=== PATIENT | female | born 1940 | race Caucasian/White ===

== ENCOUNTER → 2017-09-09 18:20 | Outpatient (REF) | payer OTHER, SELFPAY | LOC: LAB 18:20 | PROVIDERS: Family Provider Internal Medicine; PCP Family Medicine; Visit Provider Physician Assistant | DX: Z48.817 Encounter for surgical aftercare following surgery on the skin and subcutaneous tissue (principal) | CPT/HCPCS: 87070; 87075; 87077; 87147; 87186; 87205 ==

== ENCOUNTER → 2017-10-01 16:14 | Outpatient (CLI) | payer OTHER, SELFPAY ==
--- NOTE | 2017-10-01 16:18 | DI.RAD.S_ITS ---
PROCEDURE: XR CHEST 2V INDICATIONS: cough TECHNIQUE: 2 views of the chest were acquired. COMPARISON: , , CHEST 1 VIEW, 05/22/2016, 17:38. FINDINGS: Surgical changes and devices: Multiple surgical clips mid abdomen.. Lungs and pleura: No pleural effusions or pneumothorax. Mild atelectasis at the lung bases. No apparent vascular congestion or pulmonary edema. Mediastinum: Mediastinal contours are normal. Mild cardiomegaly. Aortic calcification and tortuosity. Bones and chest wall: No suspicious bony abnormalities. Thoracic spondylosis. Soft tissues appear unremarkable. IMPRESSION: 1. Mild cardiomegaly without evidence of congestive failure. 2. Bibasilar radiodensities are likely atelectatic but pneumonia cannot be excluded. Dictated by: Cristobal Tillman M.D. on 10/01/2017 at 16:40 Approved by: Cristobal Tillman M.D. on 10/01/2017 at 16:43
== END ==
PROVIDERS: Family Provider Internal Medicine; PCP Family Medicine; Visit Provider Physician Assistant
DX: R05 Cough (principal); I51.7 Cardiomegaly
CPT/HCPCS: 71046

== ENCOUNTER → 2017-10-06 14:29 | Outpatient (CLI) | payer OTHER, SELFPAY ==
[2017-10-06 15:09] LABS: Add Manual Diff / Slide Review NO; Basophils Percent Auto 0.4 % (0-2); Hematocrit 36.2 % (36-46); Hemoglobin 11.8 g/dL (12.0-16.0); Lymphocytes Percent Auto 28.1 % (25-40); Mean Corpuscular HGB Conc 32.7 % (30-36); Mean Corpuscular Hemoglobin 26.6 PG (26-34); Mean Corpuscular Volume 81.5 fL (80-100); Monocytes Percent Auto 6.7 % (3-14); Neutrophils Absolute Auto 7900 /uL (3000-5900); Neutrophils Percent Auto 63.8 % (50-75); Platelet Count 230 X10^3/uL (150-400); Red Blood Cell Count 4.44 X10^6/uL (4.0-5.2); Red Cell Distribution Width 15.5 % (11.6-14.8); White Blood Cell Count 12.3 X10^3/uL (4.5-11.0)
[2017-10-06 15:20] LABS: Hemoglobin A1C% w Est Avg Glu 7.4 % (4.0-6.0)
[2017-10-06 15:29] LABS: Alanine Aminotransferase 36 IU/L (9-52); Albumin 3.8 g/dL (3.5-5.0); Albumin Globulin Ratio 1.1 (1.0-2.8); Alkaline Phosphatase 119 U/L (38-126); Aspartate Aminotransferase 30 IU/L (14-36); Bilirubin Total 0.4 mg/dL (0.2-1.3); Blood Urea Nitrogen 26 mg/dL (7-17); Calcium 9.7 mg/dL (8.4-10.2); Carbon Dioxide 37 mmol/L (22-32); Chloride 95 mmol/L (98-107); Cholesterol 143 mg/dL (140-199); Estimated Glomerular Filt Rate 39.6 mL/min (>60); Globulin 3.5 g/dL (1.7-4.1); Glucose 141 mg/dL (80-110); HDL Cholesterol 44 mg/dL (40-60); HEMOLYSIS < 15 (0-50); LDL Cholesterol Calculated 54 mg/dL (<100); Potassium 3.9 mmol/L (3.4-5.1); Sodium 140 mmol/L (137-145); Total Protein 7.3 g/dL (6.3-8.2); Triglycerides 223 mg/dL (35-150)
[2017-10-06 15:34] LABS: Appearance Urine UA CLEAR; Bilirubin Urine UA NEGATIVE (NEGATIVE); Color Urine UA YELLOW; Glucose Urine UA NEGATIVE (Normal); Ketones Urine UA NEGATIVE (NEGATIVE); Leukocyte Esterase Urine UA 1+ (NEGATIVE); Nitrite Urine UA Negative (Negative); Occult Blood Urine UA NEGATIVE (Negative); Protein Urine UA NEGATIVE (Negative); Specific Gravity Urine UA 1.015 (1.000-1.035); Urobilinogen Urine UA 0.2 E.U./dL (0.2)
[2017-10-06 15:59] LABS: Thyroid Stimulating Hormone 0.91 uIU/mL (0.47-4.68)
[2017-10-06 16:01] LABS: RBC Urine None Seen (0-5/HPF)
[2017-10-06 16:02] LABS: Bacteria Urine Occasional (0-1); Culture Indicated Urine Specimen Cultured; Squamous Epithelial Cell Urine 1-5 /HPF; WBC Urine 1-5/HPF (0-5/HPF)
[2017-10-06 16:15] LABS: Vitamin B12 > 1000 pg/mL (239-931)
== END ==
PROVIDERS: PCP Family Medicine; Visit Provider Family Medicine
DX: Z51.81 Encounter for therapeutic drug level monitoring (principal); E53.8 Deficiency of other specified B group vitamins; I10 Essential (primary) hypertension; E78.5 Hyperlipidemia, unspecified; E11.9 Type 2 diabetes mellitus without complications
CPT/HCPCS: 36415; 80053; 80061; 81003; 81015; 82607; 83036; 84443; 85025; 87086

== ENCOUNTER → 2017-12-22 08:07 | Outpatient (CLI) | payer OTHER, SELFPAY ==
[2017-12-22 09:23] LABS: Alanine Aminotransferase 25 IU/L (9-52); Albumin 3.9 g/dL (3.5-5.0); Albumin Globulin Ratio 1.2 (1.0-2.8); Alkaline Phosphatase 106 U/L (38-126); Aspartate Aminotransferase 26 IU/L (14-36); BUN Creatinine Ratio 17.5 (6-22); Bilirubin Total 0.5 mg/dL (0.2-1.3); Blood Urea Nitrogen 21 mg/dL (7-17); Calcium 9.4 mg/dL (8.4-10.2); Carbon Dioxide 35 mmol/L (22-32); Chloride 100 mmol/L (98-107); Estimated Glomerular Filt Rate 43.3 mL/min (>60); Globulin 3.3 g/dL (1.7-4.1); Glucose 73 mg/dL (80-110); HEMOLYSIS < 15 (0-50); Potassium 3.7 mmol/L (3.4-5.1); Sodium 144 mmol/L (137-145); Total Protein 7.2 g/dL (6.3-8.2)
[2017-12-25 10:46] LABS: Lipoprofile NMR SEE SEPARATE REPORTS
== END ==
PROVIDERS: PCP Family Medicine; Visit Provider Physician Assistant Medical
DX: I10 Essential (primary) hypertension (principal); E78.2 Mixed hyperlipidemia; R06.9 Unspecified abnormalities of breathing
CPT/HCPCS: 36415; 80053; 83704; 83735

== ENCOUNTER → 2017-12-23 13:25 | Outpatient (CLI) | payer OTHER, SELFPAY ==
--- NOTE | 2017-12-23 | DI.ECHO.S_ITS ---
[place] [facility]---------+ [facility] +---------+ : : [address] : : : : [id number] : : : : Phone: [phone]+ Echocardiogram Report + + :Name: SID MELCHOR Study Date: 12/23/2017 Height: 66 in : :[facility] Exam Location: [facility] Weight: 280 lb : : Gender: Female BSA: 2.3 m2 : :: 1940 Age: 77 yrs BP: 130/70 mmHg: :Reason For Study: Dyspnea on exertion : :Ordering Physician: En, : :Hansel Performed By: Sydney Page : :Referring: NANCY NORRIS : + + Interpretation Summary 1) Grossly normal left ventricular size with normal wall motion, and systolic function (EF 60-65%). 2) Normal right ventricular size and function. 3) The left atrium is moderately dilated. 4) Age related calcification of the aortic and mitral valves with no significant stenosis or regurgitation. 5) Pulmonary artery pressures cannot be estimated because of the lack of a measurable TR jet velocity. 6) Compared to the Echo done 04/03/2015, no signifciant change. Procedure: A two-dimensional transthoracic echocardiogram with color flow and Doppler was performed. The study quality was technically difficult. Comparison is made with the echocardiogram of 04/03/2015. The subcostal views were difficult to obtain and are suboptimal in quality. The patient was in normal sinus rhythm during the exam. The patient had occasional PVCs during the exam. Left Ventricle: The left ventricle is not well visualized but is grossly normal in size. The ejection fraction is estimated to be 60-65%. Left ventricular systolic function is normal without focal wall motion abnormalities. Assessment of diastolic parameters indicates a relaxation abnormality of the left ventricle, consistent with normal filling pressures. Right Ventricle: The right ventricle is normal in size and function. Atria: The left atrium is moderately dilated. Right atrial size is normal. There is no Doppler evidence for an interatrial shunt. Mitral Valve: The mitral valve is grossly normal. There is mild mitral annular calcification. The mitral valve mean gradient is 3.4 mmHg. There is trace mitral regurgitation. Aortic Valve: The aortic valve is not well visualized. The aortic valve is grossly normal. The aortic valve opens well. There is no aortic valve stenosis. No aortic regurgitation is present. Tricuspid Valve: The tricuspid valve is not well visualized, but is grossly normal. There is a trace or physiologic amount of tricuspid regurgitation. Pulmonary artery pressures cannot be estimated because of the lack of a measurable TR jet velocity. Pulmonic Valve: The pulmonic valve is not well visualized. There is trace pulmonic regurgitation. Great Vessels: The aortic root is normal size. The ascending aorta is normal in size. The pulmonary is not well visualized. The inferior vena cava was not visualized. Pericardium/ Pleura There is no pericardial effusion. There is no pleural effusion. MMode/2D Measurements & Calculations LVIDd: 5.2 cm Ao root diam: 3.0 cm LVIDs: 3.1 cm asc Aorta Diam: 3.2 cm FS: 41.6 % IVSd: 0.92 cm LVPWd: 1.0 cm LV [place]. diameter/BSA (cm/m^2): 2.3 LV sys. diameter/BSA (cm/m^2): 1.3 LA A2 area: 25.1 cm2 RA long axis: 5.4 cm LA A4 area: 22.1 cm2 RA area: 18.2 cm2 LA length (vol): 5.8 cm RA vol: 52.0 ml LA vol: 81.2 ml RA : 22.5 ml/m2 LA vol index: 35.2 ml/m2 RVD1 (basal): 4.2 cm TAPSE: 2.5 cm Doppler Measurements & Calculations Ao V2 max: 144.7 cm/sec LVOT Max Jam: 97.7 cm/sec Ao V2 mean: 101.5 cm/sec LV V1 max P.8 mmHg Ao max P.4 mmHg LV V1 VTI: 22.3 cm Ao mean P.6 mmHg sev ratio: 0.67 Ao V2 VTI: 33.2 cm MV E max jam: 129.0 cm/sec PA V2 max: 70.4 cm/sec MV A max jam: 145.4 cm/sec PA V2 mean: 51.4 cm/sec MV E/A: 0.89 PA mean P.1 mmHg Med Peak E' Jam: 4.6 cm/sec PA Accel Time: 0.14 sec E/E' med: 27.8 Lat Peak E' Jam: 5.2 cm/sec E/E' lat: 25.0 E/e' average: 26.4 MV dec time: 0.23 sec MV P1/2t: 71.7 msec MV V2 mean: 83.6 cm/sec MV P1/2t max jam: 129.3 cm/sec MV mean P.4 mmHg MVA(P1/2t): 3.1 cm2 MV V2 VTI: 44.0 cm Reading Physician:01:07 PM
== END ==
PROVIDERS: PCP Family Medicine; Visit Provider Family Medicine
DX: R06.09 Other forms of dyspnea (principal); I08.0 Rheumatic disorders of both mitral and aortic valves
CPT/HCPCS: 93306; Q9957

== ENCOUNTER → 2018-01-25 09:24 | Outpatient (CLI) | payer OTHER, SELFPAY ==
[2018-01-25 11:00] LABS: Hemoglobin A1C% w Est Avg Glu 6.9 % (4.0-6.0)
[2018-01-25 11:33] LABS: Alanine Aminotransferase 23 IU/L (9-52); Albumin 3.8 g/dL (3.5-5.0); Albumin Globulin Ratio 1.3 (1.0-2.8); Alkaline Phosphatase 126 U/L (38-126); Aspartate Aminotransferase 18 IU/L (14-36); BUN Creatinine Ratio 12.9 (6-22); Bilirubin Total 0.6 mg/dL (0.2-1.3); Blood Urea Nitrogen 18 mg/dL (7-17); Calcium 9.7 mg/dL (8.4-10.2); Carbon Dioxide 36 mmol/L (22-32); Chloride 99 mmol/L (98-107); Cholesterol 124 mg/dL (140-199); Estimated Glomerular Filt Rate 36.3 mL/min (>60); Globulin 2.9 g/dL (1.7-4.1); Glucose 46 mg/dL (80-110); HDL Cholesterol 44 mg/dL (40-60); HEMOLYSIS < 15 (0-50); LDL Cholesterol Calculated 59 mg/dL (<100); Magnesium 1.8 mg/dL (1.6-2.3); Potassium 3.8 mmol/L (3.4-5.1); Sodium 145 mmol/L (137-145); Total Protein 6.7 g/dL (6.3-8.2); Triglycerides 106 mg/dL (35-150)
== END ==
PROVIDERS: PCP Family Medicine; Visit Provider Specialist
DX: E11.9 Type 2 diabetes mellitus without complications (principal); E78.2 Mixed hyperlipidemia; I10 Essential (primary) hypertension; Z79.4 Long term (current) use of insulin
CPT/HCPCS: 36415; 80053; 80061; 83036; 83735

== ENCOUNTER 2018-05-09 12:38 | Emergency (ER) | payer OTHER, SELFPAY ==
[2018-05-09 12:40] VITALS: BP 165/76; PULSE 68; RESP 20; TEMP 36.3; O2SAT 96; BMI 44.2
--- NOTE | 2018-05-09 12:51 | ED_ITS ---
HPI - Chest Pain General Chief Complaint: Chest Pain Stated Complaint: Chest pain and back pain Time Seen by Provider: 05/09/18 12:49 Source: patient Mode of arrival: wheelchair Limitations: no limitations History of Present Illness HPI narrative: Patient is a 77-year-old female here for evaluation of greater than 24 hr of bilateral chest and back pain. She states that she does not know when exactly it started. She states that it does get worse when she moves or when she touches it. No shortness of breath. No cough. No rash. Has not tried anything for this prior to arrival. Has had heart attack in the past however she does not think that this similar to those symptoms. She has been taking her medications. Related Data Home Medications Medication Instructions Recorded Confirmed VITAMIN D (Vitamin D3) 1,000 mg PO Q DAY #0 11/04/10 05/04/18 atorvastatin [Lipitor] 40 mg PO HS #0 11/04/10 05/04/18 metformin 1,000 mg PO BID #0 11/04/10 05/04/18 furosemide 80 mg PO QDAY #0 11/06/11 05/04/18 aspirin 81 mg PO QDAY #0 06/23/17 05/04/18 carvedilol [Coreg] 0.5 tab PO BID #0 06/23/17 05/04/18 citalopram 40 mg PO QDAY #0 06/23/17 05/04/18 cyanocobalamin (vitamin B-12) 5,000 mcg SUBLINGUAL QDAY #0 06/23/17 05/04/18 [Vitamin B-12] magnesium oxide 250 mg PO BID #0 06/23/17 05/04/18 diphenhydramine 25 1 tab PO BEDTIME PRN 09/07/17 05/04/18 mg-acetaminophen 500 mg tablet insulin lispro (U-100) 100 unit/mL See Label Instructions SUBCUT TID 04/27/18 subcutaneous pen Previous Rx's Medication Instructions Recorded pen needle, diabetic 31 gauge x #100 each 08/13/1708/26 albuterol sulfate 90 mcg/actuation 2 puff INHALATION Q4H PRN #1 each 10/12/17 breath activated powder inhaler Disabled Parking Permit #1 ea 12/28/17 pramipexole 0.25 mg tablet 0.5 mg PO HS #60 tab 01/12/18 tramadol 50 mg tablet 50 mg PO TIDP PRN #30 tab 01/27/18 insulin glargine (U-100) 100 30 unit SUBCUT BID #15 ml 04/28/18 unit/mL (3 mL) subcutaneous pen nystatin-triamcinolone 100,000 1 applictn TOP BID #15 gram 05/04/18 unit/gram-0.1 % topical ointment hydrocodone-acetaminophen [Sweet Water] 1 tab PO Q4-6H PRN #7 tab 05/09/18 Allergies Allergy/AdvReac Type Severity Reaction Status Date / Time No Known Allergies Allergy Uncoded 05/04/18 13:59 Review of Systems Constitutional Denies fever(s) and Denies headache(s) ENT Ears, Nose, Mouth, and Throat: Denies headache(s) Cardiovascular Reports chest pain, Denies edema, Denies palpitations and Denies dyspnea Respiratory Denies dyspnea Gastrointestinal Gastrointestinal: Denies abdominal pain, Reports nausea and Denies vomiting Musculoskeletal Reports back pain, Denies myalgias and Denies arthralgias Integumentary/Breasts Denies lesions and Denies rash Neurologic Denies confusion and Denies headache(s) Psychiatric Denies confusion Endocrine Denies palpitations Hematologic/Lymphatic Comments: Not on anticoagulation PFSH Surgical History Cholecystitis (Inactive) Hx of hysterectomy (Inactive) Social History Smoking Status: Former smoker Exam Initial Vital Signs Initial Vital Signs: Vital Signs Temperature 97.3 F L 05/09/18 12:40 Pulse Rate 68 05/09/18 12:40 Respiratory Rate 20 05/09/18 12:40 Blood Pressure 165/76 H 05/09/18 12:40 Pulse Oximetry 96 05/09/18 12:40 Const General: cooperative, well developed, well groomed and No acute distress Orientation: alert, awake and oriented x3 HENMT Head: normal to inspection and normocephalic Chest Chest: normal inspection of the chest, No crepitus and tenderness (Bilateral anterior chest wall tenderness) Resp Effort & Inspection: normal respiratory effort, not labored and not tachypneic Auscultation: clear to auscultation bilaterally Cardio Rate: regular rate Rhythm: regular rhythm Pulses: radial pulses present GI Inspection: non-distended Palpation: soft Skin Lesions: no lesions Rashes: no rashes Neuro General: alert, awake and oriented x3 Cognition: normal cognition Speech: speech normal Extrem General: normal to inspection and capillary refill normal Psych Appearance: grossly normal and well kempt Course Orders Ordered: ED Orders 05/09/18 12:50 XR chest 1V Stat EKG-12 Lead Stat 05/09/18 12:59 B Type Natriuretic Peptide Stat Complete Blood Count AUTO DIFF Stat Comprehensive Metabolic Panel Stat Lipase Stat Partial Thromboplastin Time Stat Prothrombin Time INR Stat Troponin I Stat 05/09/18 13:41 CT angio chest PE protocol Stat Sodium Chloride (Normal Saline 0.9%) 1,000 mls @ 500 mls/hr IV BOLUS ONE Stop: 05/09/18 15:40 Last Admin: 05/09/18 14:08 Dose: 500 mls/hr Discontinued Medications Morphine Sulfate (Morphine) 2 mg IV NOW ONE Stop: 05/09/18 13:43 Last Admin: 05/09/18 14:08 Dose: 2 mg Vital Signs - 8 hr 05/09/18 12:40 05/09/18 13:32 05/09/18 14:32 Temperature 97.3 F L Pulse Rate 68 76 70 Respiratory Rate 20 14 21 Blood Pressure 165/76 H Blood Pressure [Left Arm] 123/59 L 141/59 H Pulse Oximetry 96 98 94 MDM - Chest Pain Lab Data Attestation: I reviewed the patient's lab results. Result diagrams: 05/09/18 12:59 05/09/18 12:59 Lab Results 05/09/18 05/09/18 05/09/18 Range/Units 12:59 12:59 12:59 WBC 8.6 (4.5-11.0) X10^3/uL RBC 4.47 (4.0-5.2) X10^6/uL Hgb 12.1 (12.0-16.0) g/dL Hct 37.3 (36-46) % MCV 83.5 (80-100) fL MCH 27.1 (26-34) PG MCHC 32.5 (30-36) % RDW 15.5 H (11.6-14.8) % Plt Count 207 (150-400) X10^3/uL Neut % (Auto) 64.4 (50-75) % Lymph % (Auto) 22.2 L (25-40) % [place] % (Auto) 9.4 (3-14) % Eos % (Auto) 3.1 (2-4) % Baso % (Auto) 0.9 (0-2) % Neut # (Auto) 5600 (4445-2356) /uL Lymph # (Auto) 1900 (9003-2229) /uL [place] # (Auto) 800 (0-900) /uL Eos # (Auto) 300 (0-450) /uL Baso # (Auto) 100 (0-100) /uL PT 11.8 (10.1-12.7) SECONDS INR 1.0 (0.9-1.3) APTT 30 (26.4-36.2) SECONDS Sodium 143 (137-145) mmol/L Potassium 3.7 (3.4-5.1) mmol/L Chloride 99 (98-107) mmol/L Carbon Dioxide 33 H (22-32) mmol/L BUN 21 H (7-17) mg/dL Creatinine 1.30 H (0.52-1.04) mg/dL Estimated GFR 39.5 L (>60) mL/min BUN/Creatinine Ratio 16.2 (6-22) Glucose 61 L (80-110) mg/dL Calcium 9.6 (8.4-10.2) mg/dL Total Bilirubin 0.5 (0.2-1.3) mg/dL AST 24 (14-36) IU/L ALT 17 (9-52) IU/L Alkaline Phosphatase 103 (38-126) U/L Troponin I < 0.012 (0.01-0.034) ng/mL B-Natriuretic Peptide < 100 (<100) Total Protein 7.8 (6.3-8.2) g/dL Albumin 4.2 (3.5-5.0) g/dL Globulin 3.6 (1.7-4.1) g/dL Albumin/Globulin Ratio 1.2 (1.0-2.8) Lipase 85 (23-300) U/L Imaging Data Chest x-ray: Radiologist's impression: [address] [address] XRay Report Signed Patient: Fernie Cowanha [facility]#: [id number] : 9Acct:[id number] Age/Sex: 77 / FDate of Service: 05/09/18 Loc: ED Accession Number: [id number] Procedure: XR chest 1V Ordering Provider: Jaydon Solano D.O. PROCEDURE: XR CHEST 1V INDICATIONS: chest pain TECHNIQUE: One view of the chest was acquired. COMPARISON: [facility], CR, XR CHEST 2V, 10/01/2017, 16:05. FINDINGS: Surgical changes and devices: None. Lungs and pleura: There is left hemidiaphragm elevation. Left base opacity is likely atelectasis. No pleural effusions or pneumothorax. Mediastinum: Mediastinal contours appear normal. Heart size is normal. Bones and chest wall: No suspicious bony lesions. Overlying soft tissues appear unremarkable. Degenerative changes in the thoracic spine. IMPRESSION: Left kenny-diaphragm elevation and left basilar atelectasis. Dictated by: Serjio Portillo M.D. on 05/09/2018 at 13:47 CT scan - chest: Radiologist's impression: [place] [address] CT Scan Report Signed Patient: Estefania Cowan [facility]#: [id number] : 9Acct:[id number] Age/Sex: 77 / FDate of Service: 05/09/18 Loc: ED Accession Number: [id number] Procedure: CT angio chest PE protocol Ordering Provider: Jaydon Solano D.O. PROCEDURE: CT ANGIO CHEST PE PROTOCOL INDICATIONS: Chest pain, shortness of breath, TECHNIQUE: After the administration of intravenous contrast, 2 mm thick sections acquired from the pulmonary apices to the posterior costophrenic angles. 3-dimensional maximum intensity projection (MIP) coronal and sagittal reformats were then acquired through the thorax. For radiation dose reduction, the following was used: automated exposure control, adjustment of mA and/or kV according to patient size. COMPARISON: [facility], CT, THORAX WITH CONTRAST, 12/06/2008, 12:43. [facility], CT, THORAX WITHOUT CONTRAST, 11/21/2010, 10:58. [facility], CR, XR CHEST 1V, 05/09/2018, 13:20. FINDINGS: Image quality: There are respiratory motion artifacts. Pulmonary arteries: Pulmonary arteries are normal in size, and demonstrate no intraluminal filling defects to suggest central pulmonary embolism. Lungs and pleura: Bilateral ground glass infiltrates. There is left hemidiaphragm elevation and left basilar atelectasis. No pleural effusions or pneumothorax. Central and peripheral airways are patent. Mediastinum: Heart size is normal, without pericardial effusion. Small mediastinal lymph nodes are nonspecific and most likely reactive. Thoracic aorta is normal in caliber and enhancement. Esophagus is normal in caliber. Small hiatal hernia. Bones and chest wall: No suspicious bony lesions. Ribs and thoracic spine appear intact throughout. Thyroid gland is normal. No axillary or supraclavicular adenopathy. Abdomen: Visualized upper abdominal solid organs appear normal in the early arterial phase of enhancement. Gallbladder is surgically absent. IMPRESSION: 1. No definitive central pulmonary embolism. The examination is somewhat suboptimal due to respiratory motion artifacts. 2. Mild bilateral ground glass infiltrates consistent with pneumonia or pneumonitis. 3. Left hemidiaphragm elevation and left basilar atelectasis. 4. Small hiatal hernia. Dictated by: Serjio Portillo M.D. on 05/09/2018 at 14:34 Approved by: Serjio Portillo M.D. on 05/09/2018 at 14:45 ECG Data Attestation: I personally reviewed and interpreted this ECG as follows: Prior ECG tracings: not available for review Interpretation: Sinus rhythm Ventricular rate is 79 Occasional PVCs Normal QRS Normal QTC No ST T wave changes MDM Narrative Medical decision making narrative: Patient has reproducible anterior hand back chest wall pain. Her CT shows no signs of dissection or pulmonary embolism. Her troponin was negative. She states she has been having the symptoms for more than 24 hr. Low suspicion for ACS. States she feels much better after receiving some morphine here in the ER. Hold on further workup for now. Low suspicion for ACS. Patient was given return precautions. She expressed understanding and agreement with plan. Discharge Plan Departure Patient Disposition: Home Clinical Impression: Acute chest wall pain, Back pain Instructions: DI for Atypical Chest Pain Activity Restrictions/Additional Instructions: Continue all of your medications as directed. Contact your primary care doctor for a follow-up. Return to the emergency department for any new or worsening symptoms Prescriptions: New hydrocodone-acetaminophen [Sweet Water] 5-325 mg tablet 1 tab PO Q4-6H PRN (Reason: pain) Qty: 7 RF: 0 No Action albuterol sulfate 90 mcg/actuation aerosol powdr breath activated 2 puff INHALATION Q4H PRN (Reason: shortness of breath or wheezing) Qty: 1 RF : 0 tramadol 50 mg tablet 50 mg PO TIDP PRN (Reason: pain) Qty: 30 RF: 0 diphenhydramine-acetaminophen [Tylenol PM Extra Strength] 25-500 mg tablet 1 tab PO BEDTIME PRNRF: 0 pramipexole [Mirapex] 0.25 mg tablet 0.5 mg PO HS Qty: 60 RF: 5 insulin lispro [Humalog KwikPen Insulin] 100 unit/mL insulin pen See Patient Comments SUBCUT TID RF: 0 atorvastatin [Lipitor] 40 MG tablet 40 mg PO HS Qty: 0 RF: 0 metformin 1,000 MG tablet 1,000 mg PO BID Qty: 0 RF: 0 VITAMIN D (Vitamin D3) 1,000 mg PO Q DAY Qty: 0 RF: 0 furosemide 80 MG tablet 80 mg PO QDAY Qty: 0 RF: 0 aspirin 81 MG tablet,delayed release (DR/EC) 81 mg PO QDAY Qty: 0 RF: 0 magnesium oxide 250 MG tablet 250 mg PO BID Qty: 0 RF: 0 citalopram 40 MG tablet 40 mg PO QDAY Qty: 0 RF: 0 cyanocobalamin (vitamin B-12) [Vitamin B-12] 5,000 MCG tablet, sublingual 5,000 mcg Sublingual QDAY Qty: 0 RF: 0 carvedilol [Coreg] 6.25 MG tablet 0.5 tab PO BID Qty: 0 RF: 0 pen needle, diabetic [Comfort EZ Pen [place]] 31 gauge x 5/16 needle .ROUTE .MEDSUPPLY Qty: 100 RF: 3 Disabled Parking Permit Qty: 1 RF: 0 insulin glargine [Lantus Solostar U-100 Insulin] 100 unit/mL (3 mL) insulin pen 30 unit SUBCUT BID Qty: 15 RF: 1 nystatin-triamcinolone 100,000-0.1 unit/gram-% ointment 1 applictn TOP BID Qty: 15 RF: 0
[2018-05-09 13:07] LABS: Add Manual Diff / Slide Review NO; Basophils Absolute Auto 100 /uL (0-100); Basophils Percent Auto 0.9 % (0-2); Eosinophils Absolute Auto 300 /uL (0-450); Eosinophils Percent Auto 3.1 % (2-4); Hematocrit 37.3 % (36-46); Hemoglobin 12.1 g/dL (12.0-16.0); Lymphocytes Absolute Auto 1900 /uL (1100-4500); Lymphocytes Percent Auto 22.2 % (25-40); Mean Corpuscular HGB Conc 32.5 % (30-36); Mean Corpuscular Hemoglobin 27.1 PG (26-34); Mean Corpuscular Volume 83.5 fL (80-100); Monocytes Absolute Auto 800 /uL (0-900); Monocytes Percent Auto 9.4 % (3-14); Neutrophils Absolute Auto 5600 /uL (1500-7000); Neutrophils Percent Auto 64.4 % (50-75); Platelet Count 207 X10^3/uL (150-400); Red Blood Cell Count 4.47 X10^6/uL (4.0-5.2); Red Cell Distribution Width 15.5 % (11.6-14.8); White Blood Cell Count 8.6 X10^3/uL (4.5-11.0)
[2018-05-09 13:16] LABS: Prothrombin Time 11.8 SECONDS (10.1-12.7)
[2018-05-09 13:17] LABS: Alanine Aminotransferase 17 IU/L (9-52); Albumin 4.2 g/dL (3.5-5.0); Albumin Globulin Ratio 1.2 (1.0-2.8); Alkaline Phosphatase 103 U/L (38-126); Aspartate Aminotransferase 24 IU/L (14-36); BUN Creatinine Ratio 16.2 (6-22); Bilirubin Total 0.5 mg/dL (0.2-1.3); Blood Urea Nitrogen 21 mg/dL (7-17); Calcium 9.6 mg/dL (8.4-10.2); Carbon Dioxide 33 mmol/L (22-32); Chloride 99 mmol/L (98-107); Estimated Glomerular Filt Rate 39.5 mL/min (>60); Globulin 3.6 g/dL (1.7-4.1); Glucose 61 mg/dL (80-110); HEMOLYSIS < 15 (0-50); Lipase 85 U/L (23-300); Potassium 3.7 mmol/L (3.4-5.1); Sodium 143 mmol/L (137-145); Total Protein 7.8 g/dL (6.3-8.2)
[2018-05-09 13:18] LABS: PTT Partial Thromboplastin Tim 30 SECONDS (26.4-36.2)
[2018-05-09 13:32] VITALS: BP 123/59; PULSE 76; RESP 14; O2SAT 98
[2018-05-09 13:32] LABS: Troponin I < 0.012 ng/mL (0.01-0.034)
[2018-05-09 13:33] LABS: B Type Natriuretic Peptide < 100 (<100)
--- NOTE | 2018-05-09 13:41 | DI.CT.S_ITS ---
PROCEDURE: CT ANGIO CHEST PE PROTOCOL INDICATIONS: Chest pain, shortness of breath, TECHNIQUE: After the administration of intravenous contrast, 2 mm thick sections acquired from the pulmonary apices to the posterior costophrenic angles. 3-dimensional maximum intensity projection (MIP) coronal and sagittal reformats were then acquired through the thorax. For radiation dose reduction, the following was used: automated exposure control, adjustment of mA and/or kV according to patient size. COMPARISON: [facility], CT, THORAX WITH CONTRAST, 12/06/2008, 12:43. [facility], CT, THORAX WITHOUT CONTRAST, 11/21/2010, 10:58. [facility], CR, XR CHEST 1V, 05/09/2018, 13:20. FINDINGS: Image quality: There are respiratory motion artifacts. Pulmonary arteries: Pulmonary arteries are normal in size, and demonstrate no intraluminal filling defects to suggest central pulmonary embolism. Lungs and pleura: Bilateral ground glass infiltrates. There is left hemidiaphragm elevation and left basilar atelectasis. No pleural effusions or pneumothorax. Central and peripheral airways are patent. Mediastinum: Heart size is normal, without pericardial effusion. Small mediastinal lymph nodes are nonspecific and most likely reactive. Thoracic aorta is normal in caliber and enhancement. Esophagus is normal in caliber. Small hiatal hernia. Bones and chest wall: No suspicious bony lesions. Ribs and thoracic spine appear intact throughout. Thyroid gland is normal. No axillary or supraclavicular adenopathy. Abdomen: Visualized upper abdominal solid organs appear normal in the early arterial phase of enhancement. Gallbladder is surgically absent. IMPRESSION: 1. No definitive central pulmonary embolism. The examination is somewhat suboptimal due to respiratory motion artifacts. 2. Mild bilateral ground glass infiltrates consistent with pneumonia or pneumonitis. 3. Left hemidiaphragm elevation and left basilar atelectasis. 4. Small hiatal hernia. Dictated by: Serjio Portillo M.D. on 05/09/2018 at 14:34 Approved by: Serjio Portillo M.D. on 05/09/2018 at 14:45
[2018-05-09] MEDS: SODIUM CHLORIDE 0.9% 1,000 ML 500 ML IV (14:08)
[2018-05-09] MEDS: MORPHINE 4 MG/ML INJ 2 MG IV (14:08)
[2018-05-09 14:32] VITALS: BP 141/59; PULSE 70; RESP 21; O2SAT 94
[2018-05-09 15:20] VITALS: BP 113/44; PULSE 71; RESP 15; O2SAT 95
[2018-05-09 17:35] LABS: Cholesterol 112 mg/dL (140-199); HDL Cholesterol 35 mg/dL (40-60); LDL Cholesterol Calculated 45 mg/dL (<100); Triglycerides 158 mg/dL (35-150)
[2018-05-09 18:06] LABS: Thyroid Stimulating Hormone 1.18 uIU/mL (0.47-4.68)
== END 2018-05-09 15:39 | disposition home or self-care (01) ==
PROVIDERS: Emergency Provider Emergency Medicine; PCP Family Medicine
DX: R07.89 Other chest pain (principal)
CPT/HCPCS: 36591; 71045; 71275; 80053; 80061; 83690; 83880; 84443; 84484; 85025; 85610; 85730; 93005; 96361; 96374; 99284; 99285; J2270; Q9967

== ENCOUNTER → 2018-05-10 09:08 | Outpatient (CLI) | payer OTHER, SELFPAY ==
[2018-05-10 10:06] LABS: Hemoglobin A1C% w Est Avg Glu 6.2 % (4.0-6.0)
[2018-05-10 13:29] LABS: Appearance Urine UA CLEAR; Bilirubin Urine UA NEGATIVE (NEGATIVE); Color Urine UA YELLOW; Glucose Urine UA NEGATIVE (Negative); Ketones Urine UA NEGATIVE (NEGATIVE); Leukocyte Esterase Urine UA 2+ (NEGATIVE); Nitrite Urine UA NEGATIVE (Negative); Occult Blood Urine UA NEGATIVE (Negative); Protein Urine UA NEGATIVE (Negative); Specific Gravity Urine UA 1.015 (1.000-1.035); Urobilinogen Urine UA 0.2 E.U./dL (0.2)
[2018-05-10 13:59] LABS: RBC Urine None Seen (0-5/HPF)
[2018-05-10 14:00] LABS: Amorphous Sediment Urine 1+; Bacteria Urine Moderate (10-30); Culture Indicated Urine Specimen Cultured; Mucus Urine 1+ (Negative); Squamous Epithelial Cell Urine 1-5 /HPF; WBC Urine 5-10/HPF (0-5/HPF)
== END ==
PROVIDERS: PCP Family Medicine; Visit Provider Family Medicine
DX: E11.22 Type 2 diabetes mellitus with diabetic chronic kidney disease (principal); I12.9 Hypertensive chronic kidney disease with stage 1 through stage 4 chronic kidney disease, or unspecified chronic kidney disease; N18.9 Chronic kidney disease, unspecified; Z51.81 Encounter for therapeutic drug level monitoring; Z79.4 Long term (current) use of insulin
CPT/HCPCS: 81003; 81015; 83036; 87086

== ENCOUNTER → 2018-06-17 09:00 | Outpatient (CLI) | payer OTHER, SELFPAY ==
--- NOTE | 2018-06-17 | DI.MRI.S_ITS ---
PROCEDURE: MR CERVICAL SPINE WO CON INDICATIONS: CERVICAL RADICULOPATHY TECHNIQUE: Noncontrast sagittal T1 spin echo and T2 fast spin echo, sagittal STIR, foraminal oblique sagittal T2 fast spin echo, and axial gradient echo or T2 fast spin echo through the cervical spine. COMPARISON: [facility], CR, CERVICAL SPINE 2 OR 3 VIEWS, 10/05/2013, 19:48. [facility], MR, C-SPINE WITHOUT CONTRAST, 12/29/2014, 13:30. FINDINGS: Image quality: Excellent. Alignment and Curvature: There is normal bony alignment. Bones: C6-C7 ankylosis noted. Recommend plate changes noted adjacent the C2-C3, C3-C4, C4-C5, C5-C6, T1-T2, T2-T3 and T3-C4 disc. Spinal Cord: Visualized spinal cord has normal size and signal. No cerebellar tonsillar herniation. Paraspinous Soft Tissues: No paravertebral masses. Prevertebral soft tissues are normal in thickness. C2-C3: Loss of disc signal and height. Mild, diffuse disc bulge. Mild right and moderate left facet hypertrophy. Mild bilateral uncovertebral joint hypertrophy. Moderate narrowing of the central canal. Moderate right and mild left neural foraminal narrowing. No neural impingement. C3-C4: Loss of disc signal and height. Moderate, diffuse disc bulge. Mild bilateral facet hypertrophy. Mild right and moderate left uncovertebral joint hypertrophy. Severe central stenosis with flattening deformity of the cervical spinal cord. Severe bilateral neural foraminal narrowing with flattening deformity exiting C4 nerve roots. C4-C5: Loss of disc signal and height. Moderate, diffuse disc bulge. Mild bilateral facet hypertrophy. Moderate bilateral uncovertebral joint hypertrophy. Severe narrowing of the central canal with flattening deformity cervical spinal cord. Severe bilateral neural foraminal narrowing with flattening deformity exiting C5 nerve roots. C5-C6: Loss of disc signal and height. Moderate, diffuse disc bulge. Mild bilateral facet hypertrophy. Mild right and moderate left uncovertebral joint hypertrophy. Severe bilateral neural foraminal narrowing with flattening deformity of the exiting C6 nerve roots. C6-C7: Osseous ankylosis noted. No central stenosis. Mild bilateral facet hypertrophy. Mild bilateral neural foraminal narrowing. No neural impingement. C7-T1: Loss of disc signal and slight loss of disc height. Minimal, diffuse disc bulge. No central stenosis. No neural foraminal narrowing. No neural impingement. Small amount of fluid signal noted within the T2-T3 intervertebral disc space no edema noted in the subchondral marrow of the T2 or T3 vertebral bodies. IMPRESSION: 1. Multilevel degenerative disease. 2. Multilevel facet arthropathy. 3. Multilevel uncovertebral joint hypertrophy. 4. Severe C3-C4, C4-C5 and C5-C6 central canal stenosis. Moderate C2-C3 central canal narrowing. 5. Severe bilateral C3-C4, C4-C5 and C5-C6 neural foraminal narrowing. Moderate right and mild left C2-C3 neural foraminal narrowing. Mild bilateral C6 and C7 neural foraminal narrowing. 6. C6-C7 osseous ankylosis. 7. Small amount of fluid within the T2-T3 intervertebral disc space is likely reactive. Recommend correlation with clinical and laboratory values. Dictated by: Tiffanie Chandra MD, PhD on 06/17/2018 at 14:39 Approved by: Tiffanie Chandra MD, PhD on 06/17/2018 at 14:50
== END ==
PROVIDERS: PCP Family Medicine; Visit Provider Orthopaedic Surgery
DX: M50.11 Cervical disc disorder with radiculopathy, high cervical region (principal); M47.22 Other spondylosis with radiculopathy, cervical region; M48.02 Spinal stenosis, cervical region; M43.22 Fusion of spine, cervical region
CPT/HCPCS: 72141

== ENCOUNTER → 2018-07-08 08:38 | Outpatient (CLI) | payer OTHER, SELFPAY ==
[2018-07-08 09:06] LABS: Bacteria Urine None Seen
[2018-07-08 09:54] LABS: Add Manual Diff / Slide Review NO; Basophils Absolute Auto 0 /uL (0-100); Basophils Percent Auto 0.5 % (0-2); Eosinophils Absolute Auto 100 /uL (0-450); Eosinophils Percent Auto 2.2 % (2-4); Hematocrit 35.5 % (36-46); Hemoglobin 11.8 g/dL (12.0-16.0); Lymphocytes Absolute Auto 1600 /uL (1100-4500); Lymphocytes Percent Auto 26.6 % (25-40); Mean Corpuscular HGB Conc 33.4 % (30-36); Mean Corpuscular Hemoglobin 27.6 PG (26-34); Mean Corpuscular Volume 82.9 fL (80-100); Monocytes Absolute Auto 300 /uL (0-900); Monocytes Percent Auto 5.6 % (3-14); Neutrophils Absolute Auto 3900 /uL (1500-7000); Neutrophils Percent Auto 65.1 % (50-75); Platelet Count 182 X10^3/uL (150-400); Red Blood Cell Count 4.28 X10^6/uL (4.0-5.2); Red Cell Distribution Width 15.5 % (11.6-14.8)
[2018-07-08 10:04] LABS: Alanine Aminotransferase 24 IU/L (9-52); Albumin 3.9 g/dL (3.5-5.0); Albumin Globulin Ratio 1.2 (1.0-2.8); Alkaline Phosphatase 103 U/L (38-126); Aspartate Aminotransferase 20 IU/L (14-36); BUN Creatinine Ratio 16.7 (6-22); Bilirubin Total 0.6 mg/dL (0.2-1.3); Blood Urea Nitrogen 20 mg/dL (7-17); Calcium 9.6 mg/dL (8.4-10.2); Carbon Dioxide 34 mmol/L (22-32); Chloride 98 mmol/L (98-107); Cholesterol 118 mg/dL (140-199); Estimated Glomerular Filt Rate 43.3 mL/min (>60); Globulin 3.2 g/dL (1.7-4.1); Glucose 131 mg/dL (80-110); HDL Cholesterol 35 mg/dL (40-60); HEMOLYSIS < 15 (0-50); LDL Cholesterol Calculated 56 mg/dL (<100); Magnesium 1.9 mg/dL (1.6-2.3); Phosphorous 3.9 mg/dL (2.8-4.1); Potassium 3.8 mmol/L (3.4-5.1); Sodium 140 mmol/L (137-145); Total Protein 7.1 g/dL (6.3-8.2); Triglycerides 137 mg/dL (35-150)
[2018-07-08 10:28] LABS: HEMOLYSIS < 15 (0-50); Iron 63 ug/dL (37-170)
[2018-07-08 10:29] LABS: Appearance Urine UA CLEAR; Bilirubin Urine UA NEGATIVE (NEGATIVE); Color Urine UA YELLOW; Glucose Urine UA NEGATIVE (Negative); Ketones Urine UA NEGATIVE (NEGATIVE); Leukocyte Esterase Urine UA 3+ (NEGATIVE); Nitrite Urine UA NEGATIVE (Negative); Occult Blood Urine UA NEGATIVE (Negative); Protein Urine UA NEGATIVE (Negative); Specific Gravity Urine UA 1.015 (1.000-1.035); Urobilinogen Urine UA 0.2 E.U./dL (0.2)
[2018-07-08 10:32] LABS: Creatinine Urine Random 88.3 mg/dL
[2018-07-08 10:35] LABS: Microalbumi Creatinin Ratio Ur 15.8 ug/mg CR (<30); Microalbumin Urine Random 1.4 mg/dL (0-1.6)
[2018-07-08 10:36] LABS: Ferritin 11.4 ng/mL (11.1-264)
[2018-07-08 10:37] LABS: RBC Urine 1-5/HPF (0-5/HPF); WBC Urine 5-10/HPF (0-5/HPF)
[2018-07-08 10:38] LABS: Amorphous Sediment Urine 2+; Culture Indicated Urine Specimen Cultured
[2018-07-08 10:41] LABS: Percent Iron Saturation 18 % (15-50); Total Iron Binding Capacity 347 ug/dL (265-497); Transferrin 258 mg/dL (206-381)
[2018-07-08 10:47] LABS: Vitamin D 25 Hydroxy (D3) 37.9 ng/mL (30.0-100.0)
[2018-07-08 11:00] LABS: Thyroid Stimulating Hormone 1.54 uIU/mL (0.47-4.68)
[2018-07-10 15:41] LABS: Parathyroid Hormone Int 86 pg/mL (14-64)
[2018-07-12 07:20] LABS: Lipoprofile NMR SEE SEPARATE REPORTS
== END ==
PROVIDERS: PCP Family Medicine; Visit Provider Internal Medicine
DX: N18.3 Chronic kidney disease, stage 3 (moderate) (principal); I10 Essential (primary) hypertension; E78.2 Mixed hyperlipidemia; E11.9 Type 2 diabetes mellitus without complications; Z51.81 Encounter for therapeutic drug level monitoring; Z79.4 Long term (current) use of insulin
CPT/HCPCS: 36415; 80053; 80061; 81001; 82043; 82306; 82570; 82728; 83540; 83550; 83704; 83735; 83970; 84100; 84443; 85025; 87086

== ENCOUNTER → 2018-07-29 09:43 | Outpatient (CLI) | payer OTHER, SELFPAY ==
[2018-07-29 10:22] LABS: Hemoglobin A1C% w Est Avg Glu 6.5 % (4.0-6.0)
[2018-07-29 10:45] LABS: Alanine Aminotransferase 15 IU/L (9-52); Albumin 3.8 g/dL (3.5-5.0); Albumin Globulin Ratio 1.2 (1.0-2.8); Alkaline Phosphatase 86 U/L (38-126); Aspartate Aminotransferase 23 IU/L (14-36); BUN Creatinine Ratio 16.7 (6-22); Bilirubin Total 0.4 mg/dL (0.2-1.3); Blood Urea Nitrogen 20 mg/dL (7-17); Calcium 9.4 mg/dL (8.4-10.2); Carbon Dioxide 33 mmol/L (22-32); Chloride 100 mmol/L (98-107); Cholesterol 109 mg/dL (140-199); Estimated Glomerular Filt Rate 43.3 mL/min (>60); Globulin 3.2 g/dL (1.7-4.1); Glucose 89 mg/dL (80-110); HDL Cholesterol 34 mg/dL (40-60); HEMOLYSIS < 15 (0-50); LDL Cholesterol Calculated 54 mg/dL (<100); Potassium 3.7 mmol/L (3.4-5.1); Sodium 143 mmol/L (137-145); Triglycerides 105 mg/dL (35-150)
[2018-07-29 10:53] LABS: Magnesium 1.9 mg/dL (1.6-2.3)
== END ==
PROVIDERS: Family Provider Family Medicine; PCP Family Medicine; Visit Provider Specialist
DX: I49.3 Ventricular premature depolarization (principal); I12.9 Hypertensive chronic kidney disease with stage 1 through stage 4 chronic kidney disease, or unspecified chronic kidney disease; E78.2 Mixed hyperlipidemia; E11.9 Type 2 diabetes mellitus without complications; N18.9 Chronic kidney disease, unspecified; Z79.4 Long term (current) use of insulin; Z86.79 Personal history of other diseases of the circulatory system
CPT/HCPCS: 80053; 80061; 83036; 83735

== ENCOUNTER → 2018-11-08 07:59 | Outpatient (CLI) | payer OTHER, SELFPAY ==
[2018-11-08 08:45] LABS: Hemoglobin A1C% w Est Avg Glu 6.4 % (4.0-6.0)
[2018-11-08 08:54] LABS: Alanine Aminotransferase 16 IU/L (9-52); Albumin 3.7 g/dL (3.5-5.0); Albumin Globulin Ratio 1.1 (1.0-2.8); Alkaline Phosphatase 112 U/L (38-126); Aspartate Aminotransferase 19 IU/L (14-36); Bilirubin Total 0.6 mg/dL (0.2-1.3); Blood Urea Nitrogen 22 mg/dL (7-17); Calcium 9.6 mg/dL (8.4-10.2); Carbon Dioxide 33 mmol/L (22-32); Chloride 100 mmol/L (98-107); Cholesterol 112 mg/dL (140-199); Estimated Glomerular Filt Rate 47.9 mL/min (>60); Globulin 3.3 g/dL (1.7-4.1); Glucose 87 mg/dL (80-110); HDL Cholesterol 34 mg/dL (40-60); HEMOLYSIS < 15 (0-50); LDL Cholesterol Calculated 52 mg/dL (<100); Potassium 3.7 mmol/L (3.4-5.1); Sodium 142 mmol/L (137-145); Triglycerides 130 mg/dL (35-150)
[2018-11-08 09:41] LABS: Thyroid Stimulating Hormone 1.62 uIU/mL (0.47-4.68)
[2018-11-09 08:29] LABS: Appearance Urine UA SL CLOUDY; Bilirubin Urine UA NEGATIVE (NEGATIVE); Color Urine UA YELLOW; Glucose Urine UA NEGATIVE (Negative); Ketones Urine UA NEGATIVE (NEGATIVE); Leukocyte Esterase Urine UA 3+ (NEGATIVE); Nitrite Urine UA NEGATIVE (Negative); Occult Blood Urine UA NEGATIVE (Negative); Protein Urine UA TRACE (Negative); Specific Gravity Urine UA 1.015 (1.000-1.035); Urobilinogen Urine UA 0.2 E.U./dL (0.2)
[2018-11-09 09:31] LABS: RBC Urine 0-1/HPF (0-5/HPF); WBC Urine 10-30/HPF (0-5/HPF)
[2018-11-09 09:32] LABS: Amorphous Sediment Urine 1+; Bacteria Urine Many (>30); Squamous Epithelial Cell Urine 10-30 /HPF (0-5/HPF); Transitional Epi Cells Urine 1-5/HPF (0-5/HPF)
[2018-11-09 09:33] LABS: Culture Indicated Urine Cult Not Indicated
== END ==
PROVIDERS: PCP Family Medicine; Visit Provider Family Medicine
DX: E11.9 Type 2 diabetes mellitus without complications (principal); I12.9 Hypertensive chronic kidney disease with stage 1 through stage 4 chronic kidney disease, or unspecified chronic kidney disease; N18.9 Chronic kidney disease, unspecified; R60.9 Edema, unspecified; Z51.81 Encounter for therapeutic drug level monitoring; Z79.4 Long term (current) use of insulin
CPT/HCPCS: 36415; 80053; 80061; 81003; 81015; 83036; 84443

== ENCOUNTER → 2018-11-23 13:15 | Outpatient (CLI) | payer OTHER, SELFPAY ==
--- NOTE | 2018-11-23 13:17 | DI.RAD.S_ITS ---
PROCEDURE: XR LUMBAR SPINE 2-3V INDICATIONS: Lumbar radiculopathy TECHNIQUE: 3 views of the lumbar spine were acquired. COMPARISON: [facility], , -SPINE 2-3 VIEWS, 08/02/2009, 12:19. FINDINGS: Bones: No fracture or focal osseous destruction. Grade 1 anterolisthesis of L3 on L4 Multilevel degenerative endplate sclerosis and spurring. Diffuse facet arthropathy. There is multilevel moderate disc space narrowing which appears progressed at the L5-S1 level Soft tissues: Overlying bowel gas pattern is normal. No suspicious soft tissue calcifications. Scattered vascular calcifications seen in the aorta. IMPRESSION: Diffuse multilevel lumbar spondylosis and facet arthropathy. This appears progressed at the L5-S1 level since 08/02/09. Dictated by: Stoney Garrett M.D. on 11/23/2018 at 16:49 Approved by: Stoney Garrett M.D. on 11/23/2018 at 16:50
== END ==
PROVIDERS: PCP Family Medicine; Visit Provider Family Medicine
DX: M47.26 Other spondylosis with radiculopathy, lumbar region (principal); M47.27 Other spondylosis with radiculopathy, lumbosacral region; M43.16 Spondylolisthesis, lumbar region
CPT/HCPCS: 72100

== ENCOUNTER → 2019-01-24 08:39 | Outpatient (CLI) | payer OTHER, SELFPAY ==
[2019-01-24 09:19] LABS: Hemoglobin 11.6 g/dL (12.0-16.0); Mean Corpuscular HGB Conc 33.2 % (30-36); Mean Corpuscular Hemoglobin 27.5 PG (26-34); Mean Corpuscular Volume 82.8 fL (80-100); Platelet Count 198 X10^3/uL (150-400); Red Blood Cell Count 4.22 X10^6/uL (4.0-5.2); Red Cell Distribution Width 14.8 % (11.6-14.8); White Blood Cell Count 6.7 X10^3/uL (4.5-11.0)
[2019-01-24 09:28] LABS: Hemoglobin A1C% w Est Avg Glu 6.6 % (4.0-6.0)
[2019-01-24 09:30] LABS: Neutrophils Absolute Manual 4489 /uL (3000-5900); RBC Morphology Normal Morphology; Total Cells Counted 100
[2019-01-24 09:53] LABS: Alanine Aminotransferase 13 IU/L (9-52); Albumin 3.7 g/dL (3.5-5.0); Albumin Globulin Ratio 1.1 (1.0-2.8); Alkaline Phosphatase 108 U/L (38-126); Aspartate Aminotransferase 20 IU/L (14-36); BUN Creatinine Ratio 17.5 (6-22); Bilirubin Total 0.5 mg/dL (0.2-1.3); Blood Urea Nitrogen 21 mg/dL (7-17); Calcium 9.5 mg/dL (8.4-10.2); Carbon Dioxide 34 mmol/L (22-32); Chloride 102 mmol/L (98-107); Cholesterol 115 mg/dL (140-199); Estimated Glomerular Filt Rate 43.2 mL/min (>60); Globulin 3.3 g/dL (1.7-4.1); Glucose 50 mg/dL (80-110); HDL Cholesterol 33 mg/dL (40-60); HEMOLYSIS < 15 (0-50); LDL Cholesterol Calculated 62 mg/dL (<100); Potassium 3.8 mmol/L (3.4-5.1); Sodium 142 mmol/L (137-145); Triglycerides 102 mg/dL (35-150)
[2019-01-26 08:25] LABS: Lipoprofile NMR SEE SEPERATE REPORT
== END ==
PROVIDERS: Family Provider Family Medicine; PCP Family Medicine; Visit Provider Specialist
DX: I10 Essential (primary) hypertension (principal); E78.2 Mixed hyperlipidemia; E11.9 Type 2 diabetes mellitus without complications; N18.9 Chronic kidney disease, unspecified; Z79.4 Long term (current) use of insulin
CPT/HCPCS: 36415; 80053; 80061; 83036; 83704; 83735; 85025

== ENCOUNTER → 2019-05-16 08:24 | Outpatient (CLI) | payer OTHER, SELFPAY ==
[2019-05-16 09:53] LABS: Add Manual Diff / Slide Review NO; Basophils Absolute Auto 0 /uL (0-100); Basophils Percent Auto 0.6 % (0-2); Eosinophils Absolute Auto 200 /uL (0-450); Eosinophils Percent Auto 4.2 % (2-4); Hematocrit 33.5 % (36-46); Hemoglobin 11.3 g/dL (12.0-16.0); Lymphocytes Absolute Auto 1700 /uL (1100-4500); Lymphocytes Percent Auto 29.8 % (25-40); Mean Corpuscular HGB Conc 33.7 % (30-36); Mean Corpuscular Hemoglobin 27.9 PG (26-34); Mean Corpuscular Volume 82.7 fL (80-100); Monocytes Absolute Auto 400 /uL (0-900); Monocytes Percent Auto 7.7 % (3-14); Neutrophils Absolute Auto 3300 /uL (1500-7000); Neutrophils Percent Auto 57.7 % (50-75); Platelet Count 187 X10^3/uL (150-400); Red Blood Cell Count 4.05 X10^6/uL (4.0-5.2); Red Cell Distribution Width 14.8 % (11.6-14.8); White Blood Cell Count 5.7 X10^3/uL (4.5-11.0)
[2019-05-16 10:05] LABS: Alanine Aminotransferase 29 IU/L (<35); Albumin 3.6 g/dL (3.5-5.0); Albumin Globulin Ratio 1.1 (1.0-2.8); Alkaline Phosphatase 110 U/L (38-126); Aspartate Aminotransferase 35 IU/L (14-36); BUN Creatinine Ratio 15.5 (6-22); Bilirubin Total 0.4 mg/dL (0.2-1.3); Blood Urea Nitrogen 17 mg/dL (7-17); Calcium 9.4 mg/dL (8.4-10.2); Carbon Dioxide 33 mmol/L (22-32); Chloride 101 mmol/L (98-107); Cholesterol 190 mg/dL (140-199); Estimated Glomerular Filt Rate 47.8 mL/min (>60); Globulin 3.4 g/dL (1.7-4.1); Glucose 73 mg/dL (80-110); HDL Cholesterol 30 mg/dL (40-60); HEMOLYSIS < 15 (0-50); LDL Cholesterol Calculated 122 mg/dL (<100); Magnesium 1.9 mg/dL (1.6-2.3); Potassium 3.7 mmol/L (3.4-5.1); Sodium 141 mmol/L (137-145); Triglycerides 190 mg/dL (35-150)
[2019-05-16 10:06] LABS: Hemoglobin A1C% w Est Avg Glu 6.9 % (4.0-6.0)
[2019-05-16 10:35] LABS: TSH w/ Reflex to FT4 2.92 uIU/mL (0.47-4.68)
== END ==
PROVIDERS: Family Provider Family Medicine; PCP Internal Medicine; Referring Provider Internal Medicine; Visit Provider Internal Medicine
DX: D64.9 Anemia, unspecified (principal); E11.9 Type 2 diabetes mellitus without complications; G25.81 Restless legs syndrome; N18.3 Chronic kidney disease, stage 3 (moderate); R60.9 Edema, unspecified; Z79.4 Long term (current) use of insulin
CPT/HCPCS: 36415; 80053; 80061; 83036; 83735; 84443; 85025

== ENCOUNTER → 2019-12-27 07:52 | Outpatient (CLI) | payer OTHER, SELFPAY ==
[2019-12-27 08:48] LABS: Hemoglobin A1C% w Est Avg Glu 7.4 % (4.0-6.0)
[2019-12-27 09:00] LABS: Alanine Aminotransferase 13 IU/L (<35); Albumin 3.4 g/dL (3.5-5.0); Albumin Globulin Ratio 1.3 (1.0-2.8); Alkaline Phosphatase 119 U/L (38-126); Aspartate Aminotransferase 18 IU/L (14-36); BUN Creatinine Ratio 16.8 (6-22); Bilirubin Total 0.6 mg/dL (0.2-1.3); Blood Urea Nitrogen 20 mg/dL (7-17); Calcium 9.4 mg/dL (8.4-10.2); Carbon Dioxide 36 mmol/L (22-32); Chloride 100 mmol/L (98-107); Estimated Glomerular Filt Rate 43.5 mL/min (>60); Globulin 2.7 g/dL (1.7-4.1); Glucose 137 mg/dL (80-110); HEMOLYSIS < 15 (0-50); Potassium 3.6 mmol/L (3.4-5.1); Sodium 140 mmol/L (137-145); Total Protein 6.1 g/dL (6.3-8.2)
== END ==
PROVIDERS: Family Provider Family Medicine; PCP Internal Medicine; Referring Provider Internal Medicine; Visit Provider Internal Medicine
DX: E11.9 Type 2 diabetes mellitus without complications (principal); E78.2 Mixed hyperlipidemia; I10 Essential (primary) hypertension; N18.3 Chronic kidney disease, stage 3 (moderate)
CPT/HCPCS: 36415; 80053; 83036

== ENCOUNTER → 2020-01-18 09:06 | Outpatient (CLI) | payer OTHER, SELFPAY ==
[2020-01-18 10:27] LABS: Add Manual Diff / Slide Review NO; Basophils Absolute Auto 0 /uL (0-100); Basophils Percent Auto 0.5 % (0-2); Eosinophils Absolute Auto 200 /uL (0-450); Eosinophils Percent Auto 2.3 % (2-4); Hematocrit 34.1 % (36-46); Hemoglobin 11.5 g/dL (12.0-16.0); Lymphocytes Absolute Auto 1900 /uL (1100-4500); Lymphocytes Percent Auto 27.7 % (25-40); Mean Corpuscular HGB Conc 33.7 % (30-36); Mean Corpuscular Hemoglobin 27.8 PG (26-34); Mean Corpuscular Volume 82.4 fL (80-100); Monocytes Absolute Auto 400 /uL (0-900); Monocytes Percent Auto 6.4 % (3-14); Neutrophils Absolute Auto 4300 /uL (1500-7000); Neutrophils Percent Auto 63.1 % (50-75); Platelet Count 180 X10^3/uL (150-400); Red Blood Cell Count 4.14 X10^6/uL (4.0-5.2); Red Cell Distribution Width 14.7 % (11.6-14.8); White Blood Cell Count 6.8 X10^3/uL (4.5-11.0)
[2020-01-18 10:47] LABS: Alanine Aminotransferase 16 IU/L (<35); Albumin 3.8 g/dL (3.5-5.0); Albumin Globulin Ratio 1.2 (1.0-2.8); Alkaline Phosphatase 121 U/L (38-126); Aspartate Aminotransferase 21 IU/L (14-36); BUN Creatinine Ratio 20.8 (6-22); Bilirubin Total 0.5 mg/dL (0.2-1.3); Blood Urea Nitrogen 25 mg/dL (7-17); Calcium 9.8 mg/dL (8.4-10.2); Carbon Dioxide 35 mmol/L (22-32); Chloride 100 mmol/L (98-107); Creatine Kinase 48 U/L (30-135); Estimated Glomerular Filt Rate 43.1 mL/min (>60); Globulin 3.2 g/dL (1.7-4.1); Glucose 147 mg/dL (80-110); HEMOLYSIS < 15 (0-50); Magnesium 1.9 mg/dL (1.6-2.3); Potassium 3.8 mmol/L (3.4-5.1); Sodium 140 mmol/L (137-145)
[2020-01-18 11:40] LABS: Free T4, Direct Thyroxine 1.06 ng/dL (0.78-2.19)
[2020-01-18 11:43] LABS: Creatinine Urine Random 25.8 mg/dL; Protein (Total) Urine Random 13 mg/dL (0-12)
[2020-01-18 11:54] LABS: Thyroid Stimulating Hormone 1.45 uIU/mL (0.47-4.68)
== END ==
PROVIDERS: Family Provider Family Medicine; PCP Internal Medicine; Referring Provider Internal Medicine; Visit Provider Internal Medicine
DX: N18.30 Chronic kidney disease, stage 3 unspecified (principal); R53.1 Weakness
CPT/HCPCS: 36415; 80053; 82550; 82570; 83735; 84156; 84439; 84443; 85025

== ENCOUNTER → 2020-04-24 08:48 | Outpatient (CLI) | payer OTHER, SELFPAY ==
[2020-04-24 09:55] LABS: Hemoglobin A1C% w Est Avg Glu 7.4 % (4.0-6.0)
[2020-04-24 10:14] LABS: Alanine Aminotransferase 13 IU/L (<35); Albumin 3.7 g/dL (3.5-5.0); Albumin Globulin Ratio 1.3 (1.0-2.8); Alkaline Phosphatase 122 U/L (38-126); Aspartate Aminotransferase 20 IU/L (14-36); BUN Creatinine Ratio 23.1 (6-22); Bilirubin Total 0.5 mg/dL (0.2-1.3); Blood Urea Nitrogen 27 mg/dL (7-17); Calcium 9.3 mg/dL (8.4-10.2); Carbon Dioxide 37 mmol/L (22-32); Chloride 100 mmol/L (98-107); Estimated Glomerular Filt Rate 44.4 mL/min (>60); Globulin 2.8 g/dL (1.7-4.1); Glucose 128 mg/dL (80-110); HEMOLYSIS < 15 (0-50); Magnesium 1.8 mg/dL (1.6-2.3); Potassium 3.7 mmol/L (3.4-5.1); Sodium 140 mmol/L (137-145); Total Protein 6.5 g/dL (6.3-8.2)
[2020-04-30 15:08] LABS: LDL Particle 936
[2020-04-30 15:09] LABS: HDL-Cholesterol 39; LDL-Cholsterol 55
[2020-04-30 15:10] LABS: Cholesterol, Total 117; Triglycerides 127
[2020-04-30 15:11] LABS: LDL Size 20.2; Small LDL- Particle 564
== END ==
PROVIDERS: Family Provider Family Medicine; PCP Internal Medicine; Referring Provider Specialist; Visit Provider Specialist
DX: E78.2 Mixed hyperlipidemia (principal); E11.9 Type 2 diabetes mellitus without complications; I49.3 Ventricular premature depolarization; Z79.4 Long term (current) use of insulin
CPT/HCPCS: 36415; 80053; 80061; 83036; 83704; 83735

== ENCOUNTER → 2020-05-25 08:22 | Outpatient (CLI) | payer OTHER, SELFPAY ==
[2020-05-25 09:38] LABS: BUN Creatinine Ratio 18.5 (6-22); Blood Urea Nitrogen 23 mg/dL (7-17); Calcium 9.3 mg/dL (8.4-10.2); Carbon Dioxide 37 mmol/L (22-32); Chloride 100 mmol/L (98-107); Estimated Glomerular Filt Rate 41.5 mL/min (>60); Glucose 127 mg/dL (80-110); HEMOLYSIS < 15 (0-50); Potassium 3.8 mmol/L (3.4-5.1); Sodium 140 mmol/L (137-145)
== END ==
PROVIDERS: Family Provider Family Medicine; PCP Internal Medicine; Referring Provider Specialist; Visit Provider Specialist
DX: I10 Essential (primary) hypertension (principal); E78.2 Mixed hyperlipidemia; I49.3 Ventricular premature depolarization
CPT/HCPCS: 36415; 80048; 83735

== ENCOUNTER → 2020-06-04 09:47 | Outpatient (CLI) | payer OTHER, SELFPAY ==
--- NOTE | 2020-06-04 09:48 | DI.RAD.S_ITS ---
PROCEDURE: XR CERVICAL SPINE 2V OR 3V INDICATIONS: eval bilateral shoulder pain/neck pain TECHNIQUE: 3 view(s) of the cervical spine were acquired. COMPARISON: None. FINDINGS: Bones: No fractures or dislocations to the T1 level. The lateral masses of C1 appear intact on the odontoid view. No suspicious bony lesions. There is moderately severe to severe C4-5 through C7 degenerative disc disease with anterior projecting osteophytes more prominent than posterior osteophytes, and facet osteoarthritis is slightly greater on the left than the right on the frontal projection. Both spinal and foraminal stenosis from C4 inferiorly likely is present. Soft tissues: No prevertebral soft tissue swelling. IMPRESSION: No trauma or subluxation seen but there is moderately severe to severe degenerative disc disease from C4 inferiorly and likelihood of significant spinal and foraminal stenosis as discussed over these levels. Dictated by: George Joshi M.D. on 06/04/2020 at 10:35 Approved by: George Joshi M.D. on 06/04/2020 at 10:37
--- NOTE | 2020-06-04 09:48 | DI.RAD.S_ITS ---
PROCEDURE: XR SHOULDER LT MIN 2V INDICATIONS: eval bilateral shoulder pain/neck pain TECHNIQUE: 3 views of the shoulder were acquired. COMPARISON: [facility], SHOULDER MINIMUM 2VIEW RIGHT, 06/23/2017, 11:17. [facility], SHOULDER MINIMUM 2 VIEW LEFT, 10/05/2013, 19:48. FINDINGS: Bones: No fractures or dislocations. No suspicious bony lesions. Visualized ribs appear intact. Soft tissues: No suspicious soft tissue calcifications. IMPRESSION: Moderate degenerative osteoarthritic change at the AC joint, no trauma found. Dictated by: George Joshi M.D. on 06/04/2020 at 10:37 Approved by: George Joshi M.D. on 06/04/2020 at 10:38
--- NOTE | 2020-06-04 09:48 | DI.RAD.S_ITS ---
PROCEDURE: XR SHOULDER RT MIN 2V INDICATIONS: eval bilateral shoulder pain/neck pain TECHNIQUE: 3 views of the shoulder were acquired. COMPARISON: [facility], SHOULDER MINIMUM 2VIEW RIGHT, 06/23/2017, 11:17. [facility], SHOULDER MINIMUM 2 VIEW LEFT, 10/05/2013, 19:48. FINDINGS: Bones: No fractures or dislocations. No suspicious bony lesions. Visualized ribs appear intact. Soft tissues: No suspicious soft tissue calcifications. IMPRESSION: Moderately severe AC joint osteoarthritis, no trauma found. Dictated by: George Joshi M.D. on 06/04/2020 at 10:38 Approved by: George Joshi M.D. on 06/04/2020 at 10:38
== END ==
PROVIDERS: Family Provider Family Medicine; PCP Internal Medicine; Referring Provider Registered Nurse Diabetes Educator; Visit Provider Registered Nurse Diabetes Educator
DX: M50.321 Other cervical disc degeneration at C4-C5 level (principal); M25.512 Pain in left shoulder; M25.511 Pain in right shoulder; M19.011 Primary osteoarthritis, right shoulder
CPT/HCPCS: 72040; 73030

== ENCOUNTER → 2020-09-13 07:06 | Outpatient (CLI) | payer OTHER, SELFPAY ==
[2020-09-13 07:54] LABS: Hemoglobin A1C% w Est Avg Glu 7.2 % (4.0-6.0)
[2020-09-13 07:57] LABS: Alanine Aminotransferase 14 IU/L (<35); Albumin 3.4 g/dL (3.5-5.0); Albumin Globulin Ratio 1.2 (1.0-2.8); Alkaline Phosphatase 106 U/L (38-126); Aspartate Aminotransferase 21 IU/L (14-36); BUN Creatinine Ratio 17.4 (6-22); Bilirubin Total 0.2 mg/dL (0.2-1.3); Blood Urea Nitrogen 21 mg/dL (7-17); Calcium 9.5 mg/dL (8.4-10.2); Carbon Dioxide 32 mmol/L (22-32); Chloride 102 mmol/L (98-107); Cholesterol 119 mg/dL (140-199); Estimated Glomerular Filt Rate 42.7 mL/min (>60); Globulin 2.8 g/dL (1.7-4.1); Glucose 122 mg/dL (80-110); HDL Cholesterol 38 mg/dL (40-60); HEMOLYSIS < 15 (0-50); LDL Cholesterol Calculated 51 mg/dL (<100); Potassium 3.8 mmol/L (3.4-5.1); Sodium 140 mmol/L (137-145); Total Protein 6.2 g/dL (6.3-8.2); Triglycerides 149 mg/dL (35-150)
== END ==
PROVIDERS: Family Provider Family Medicine; PCP Internal Medicine; Referring Provider Internal Medicine; Visit Provider Internal Medicine
DX: I10 Essential (primary) hypertension (principal); E78.5 Hyperlipidemia, unspecified; E11.40 Type 2 diabetes mellitus with diabetic neuropathy, unspecified
CPT/HCPCS: 36415; 80053; 80061; 83036

== ENCOUNTER → 2020-09-27 09:13 | Outpatient (CLI) | payer OTHER, SELFPAY ==
[2020-09-27 10:04] LABS: HEMOLYSIS < 15 (0-50)
[2020-09-27 10:05] LABS: Carbon Dioxide 32 mmol/L (22-32); Chloride 102 mmol/L (98-107); Sodium 138 mmol/L (137-145)
== END ==
PROVIDERS: Family Provider Family Medicine; PCP Internal Medicine; Referring Provider Podiatrist; Visit Provider Podiatrist
DX: Z01.818 Encounter for other preprocedural examination (principal)
CPT/HCPCS: 36415; 80051; 93005; 93010

== ENCOUNTER → 2021-03-12 14:37 | Outpatient (CLI) | payer OTHER, SELFPAY ==
--- NOTE | 2021-03-12 14:38 | DI.MG.S_ITS ---
BILATERAL DIGITAL SCREENING MAMMOGRAM 3D/2D WITH CAD: 03/12/2021 CLINICAL: Routine screening. Baseline by default. No prior exams were available for comparison. There are scattered fibroglandular elements in both breasts. Current study was also evaluated with a Computer Aided Detection (CAD) system. There are benign vascular calcifications in both breasts. No significant masses, calcifications, or other findings are seen in either breast. IMPRESSION: BENIGN There is no mammographic evidence of malignancy. A 1 year screening mammogram is recommended. This exam was interpreted at Station ID: [id number]. NOTE: For mammograms, a report in lay terms will be sent to the patient. Approximately 15% of breast malignancies will not be visualized mammographically. In the management of a palpable breast mass, a negative mammogram must not discourage biopsy of a clinically suspicious lesion. Electronically Signed By: Long escalona/wendy:03/13/2021 09:30:31 letter sent: Normal Exam ACR BI-RADS Category 2: Benign Finding(s) 3342F
== END ==
PROVIDERS: Family Provider Family Medicine; PCP Internal Medicine; Referring Provider Internal Medicine; Visit Provider Internal Medicine
DX: Z12.31 Encounter for screening mammogram for malignant neoplasm of breast (principal)
CPT/HCPCS: 77063; 77067

== ENCOUNTER → 2021-08-29 15:41 | Outpatient (CLI) | payer OTHER, SELFPAY ==
--- NOTE | 2021-08-29 15:43 | DI.ECHO.S_ITS ---
[place] +---------+ Hospital +---------+ : : [address] : : : : [id number] : : : : Phone: [phone]+ Echocardiogram Report + + :Name: SID MELCHOR Study Date: 08/29/2021 Height: 66 in : :[facility] ReadingLocation: Weight: 234 lb : : Gender: Female BSA: 2.1 m2 : :: 1940 Age: 80 yrs BP: 168/93 mmHg: :Reason For Study: DYSPNEA : :Ordering Physician: MONICO NAVA Performed By: Elisabeth Feliciano : :Referring: MONICO NAVA : + + Interpretation Summary The left ventricle is normal in size and wall thickness. Left ventricular systolic function appears normal without focal wall motion abnormalities. The ejection fraction is estimated to be 60-65%. Diastolic function could not be accurately assessed due to contradictory data. The right ventricle is normal in size and function. The left atrium is moderately dilated. Right atrial size is normal. There is no significant valvular heart disease. The aortic root is normal size. No significant changes since prior study on 12/23/2017. Procedure: A two-dimensional transthoracic echocardiogram with color flow and Doppler was performed. The study quality was technically adequate. Comparison is made with the echocardiogram of 12/23/2017. The patient was in sinus rhythm with heart rates between 59-84 bpm during the exam. Left Ventricle: The left ventricle is normal in size and wall thickness. Left ventricular systolic function appears normal without focal wall motion abnormalities. The ejection fraction is estimated to be 60-65%. Diastolic function could not be accurately assessed due to contradictory data. Right Ventricle: The right ventricle is normal in size and function. Atria: The left atrium is moderately dilated. Right atrial size is normal. There is no Doppler evidence for an interatrial shunt. Mitral Valve: There is mild mitral annular calcification. There is trace mitral regurgitation. Aortic Valve: The aortic valve is trileaflet. The aortic valve is slightly calcified. There is no aortic valve stenosis. No aortic regurgitation is present. Tricuspid Valve: The tricuspid valve is normal in structure and function. There is trace tricuspid regurgitation. Pulmonic Valve: The pulmonic valve leaflets are thin and pliable; valve motion is normal. There is no pulmonic valvular regurgitation. There is no significant valvular heart disease. Great Vessels: The aortic root is normal size. The dimensions of the ascending aorta are normal. The IVC is dilated (diameter is greater than 2.1 cm) yet it collapses greater than 50% with a sniff. This suggests a right atrial pressure of 8 mm Hg. Pericardium/ Pleura There is no pericardial effusion. There is no pleural effusion. MMode/2D Measurements & Calculations LVIDd: 4.9 cm LVOT diam: 2.0 cm LVIDs: 3.4 cm Ao root diam: 2.9 cm FS: 31.9 % asc Aorta Diam: 3.4 cm IVSd: 0.98 cm LVPWd: 1.0 cm LV [place]. diameter/BSA (cm/m^2): 2.3 LV sys. diameter/BSA (cm/m^2): 1.6 LA A2 area: 26.1 cm2 RA long axis: 5.3 cm LA A4 area: 22.7 cm2 RA area: 19.6 cm2 LA length (vol): 5.3 cm RA vol: 61.6 ml LA vol: 94.0 ml RA : 28.8 ml/m2 LA vol index: 44.0 ml/m2 IVC diam: 2.3 cm RVD1 (basal): 3.8 cm TAPSE: 2.4 cm Doppler Measurements & Calculations Ao V2 max: 138.3 cm/sec LVOT Max Jam: 101.6 cm/sec Ao V2 mean: 100.8 cm/sec LV V1 max P.1 mmHg Ao max P.7 mmHg LV V1 VTI: 22.2 cm Ao mean P.4 mmHg RAJESH(I,D): 2.2 cm2 Ao V2 VTI: 32.2 cm RAJESH(V,D): 2.4 cm2 sev ratio: 0.69 RAJESH indexed to BSA (cm^2/m^2): 1.1 MV E max jam: 120.1 cm/sec PA V2 max: 100.1 cm/sec MV A max jam: 135.9 cm/sec PA V2 mean: 69.9 cm/sec MV E/A: 0.88 PA mean P.2 mmHg Med Peak E' Jam: 5.1 cm/sec PA pr(Accel): 22.5 mmHg E/E' med: 23.3 Lat Peak E' Jam: 4.5 cm/sec E/E' lat: 26.6 E/e' average: 25.0 MV dec time: 0.44 sec SVLVOT): 72.5 ml Reading Physician:08:09 PM
== END ==
PROVIDERS: Family Provider Family Medicine; PCP Internal Medicine; Referring Provider Internal Medicine; Visit Provider Internal Medicine
DX: R06.00 Dyspnea, unspecified (principal)
CPT/HCPCS: 93306

== ENCOUNTER → 2021-09-20 07:23 | Outpatient (CLI) | payer OTHER, SELFPAY ==
[2021-09-20 08:00] LABS: Cholesterol 118 mg/dL (140-199); HDL Cholesterol 39 mg/dL (40-60); LDL Cholesterol Calculated 58 mg/dL (<100); Triglycerides 106 mg/dL (35-150)
== END ==
PROVIDERS: Family Provider Family Medicine; PCP Internal Medicine; Referring Provider Specialist; Visit Provider Specialist
DX: E78.2 Mixed hyperlipidemia (principal)
CPT/HCPCS: 36415; 80061

== ENCOUNTER 2021-09-21 10:13 | Emergency (ER) | payer OTHER, SELFPAY ==
[2021-09-21] VITALS (10 sets, daily range): BP systolic 114–190; BP diastolic 54–75; PULSE 81–99; RESP 24–28; TEMP 39.2; O2SAT 92–95; BMI 37.5
[2021-09-21] MEDS: ACETAMINOPHEN 325 MG TABLET 975 MG PO (10:31)
--- NOTE | 2021-09-21 10:33 | DI.RAD.S_ITS ---
PROCEDURE: XR CHEST 1V INDICATIONS: chest pain TECHNIQUE: One view of the chest was acquired. COMPARISON: [facility], CT, CT ANGIO CHEST PE PROTOCOL, 05/09/2018, 13:42. [facility], CR, CHEST 1 VIEW, 05/22/2016, 17:38. [facility], CR, XR CHEST 2V, 10/01/2017, 16:05. [facility], CR, XR CHEST 1V, 05/09/2018, 13:20. FINDINGS: Surgical changes and devices: None. Lungs and pleura: Mild, poorly defined infiltrates are seen at the lung bases. There is stable elevation of the left hemidiaphragm. On this semiupright portable chest examination, no large pneumothorax or large pleural effusions are seen. Right Mediastinum: Mediastinal contours appear normal. Heart size is mildly enlarged. Bones and chest wall: No suspicious bony lesions. Overlying soft tissues appear unremarkable. IMPRESSION: Mild poorly defined infiltrates can be seen at the lung bases, which are suspicious for infectious infiltrate. However, differential diagnosis includes mild atelectasis. Mild cardiomegaly. Dictated by: Pierre Dorsey M.D. on 09/21/2021 at 10:45 Approved by: Pierre Dorsey M.D. on 09/21/2021 at 10:47
[2021-09-21 10:56] LABS: COVID19 -Nasal RAPID POSITIVE (Negative)
[2021-09-21] MEDS: SODIUM CHLORIDE 0.9% 1,000 ML 1000 ML IV (11:19)
[2021-09-21 11:43] LABS: Add Manual Diff / Slide Review NO; Basophils Absolute Auto 0 /uL (0-100); Basophils Percent Auto 0.3 % (0-2); Eosinophils Absolute Auto 0 /uL (0-450); Eosinophils Percent Auto 0.3 % (2-4); Hemoglobin 10.8 g/dL (12.0-16.0); INR 1.1 (0.9-1.3); Lymphocytes Absolute Auto 300 /uL (1100-4500); Lymphocytes Percent Auto 5.6 % (25-40); Mean Corpuscular HGB Conc 33.7 % (30-36); Mean Corpuscular Hemoglobin 27.3 PG (26-34); Mean Corpuscular Volume 81.1 fL (80-100); Monocytes Absolute Auto 500 /uL (0-900); Monocytes Percent Auto 8.6 % (3-14); Neutrophils Absolute Auto 4900 /uL (1500-7000); Neutrophils Percent Auto 85.2 % (50-75); Platelet Count 152 X10^3/uL (150-400); Prothrombin Time 12.4 SECONDS (10.1-12.7); Red Blood Cell Count 3.95 X10^6/uL (4.0-5.2); Red Cell Distribution Width 15.1 % (11.6-14.8); White Blood Cell Count 5.7 X10^3/uL (4.5-11.0)
[2021-09-21 11:45] LABS: PTT Partial Thromboplastin Tim 34 SECONDS (26.4-36.2)
[2021-09-21 11:46] LABS: Lactate (Lactic Acid) 0.7 mmol/L (0.7-2.1)
[2021-09-21 11:48] LABS: Alanine Aminotransferase 17 IU/L (<35); Albumin 3.8 g/dL (3.5-5.0); Albumin Globulin Ratio 1.2 (1.0-2.8); Alkaline Phosphatase 126 U/L (38-126); Aspartate Aminotransferase 31 IU/L (14-36); Bilirubin Total 0.6 mg/dL (0.2-1.3); Blood Urea Nitrogen 21 mg/dL (7-17); Calcium 8.9 mg/dL (8.4-10.2); Carbon Dioxide 27 mmol/L (22-32); Chloride 104 mmol/L (98-107); Creatine Kinase 62 U/L (30-135); Estimated Glomerular Filt Rate 38 mL/min (>60); Globulin 3.3 g/dL (1.7-4.1); Glucose 112 mg/dL (80-110); HEMOLYSIS < 15 (0-50); Lipase 78 U/L (23-300); Magnesium 1.9 mg/dL (1.6-2.3); Potassium 3.9 mmol/L (3.4-5.1); Sodium 138 mmol/L (137-145); Total Protein 7.1 g/dL (6.3-8.2)
[2021-09-21 11:58] LABS: Troponin I < 0.012 ng/mL (0.01-0.034)
[2021-09-21 12:04] LABS: Procalcitonin 0.12 ng/mL (<0.5)
--- NOTE | 2021-09-21 13:01 | ED.URI ---
HPI - URI/Sore Throat <Kinjal Herring, [facility] - Last Filed: 09/21/21 14:49> General Chief Complaint: Upper Respiratory Symptoms Stated Complaint: COUGH SORE THROAT DIZZY BALANCE OFF Time Seen by Provider: 09/21/21 11:49 Source: patient Mode of arrival: Wheelchair History of Present Illness HPI Narrative: This is an 80-year-old female with history of diabetes, stage III CKD osteoarthritis and hypertension who presents to the emergency department with complaint of feeling poorly for the last 3-5 days, having a cough for the last three days, denies having fever but is febrile in triage today to 102.5. Patient states that she did not take her diabetes medicine today about otherwise her blood sugars have been fairly under control. She endorses some mild nausea but denies any vomiting or diarrhea. She endorses shortness of breath with any exertion, denies any weakness, syncope, chest pain or pressure, wheezing, difficulty breathing. She endorses fatigue, and coughing. She is COVID vaccinated x2. Related Data Home Medications Medication Instructions Recorded Confirmed VITAMIN D (Vitamin D3) 1,000 mg PO Q DAY ##0 11/04/10 06/21/20 furosemide 80 mg tablet 80 mg PO QDAY ##0 11/06/11 06/21/20 aspirin 81 mg tablet,delayed 81 mg PO QDAY ##0 06/23/17 06/21/20 release diphenhydramine 25 1 tab PO BEDTIME PRN 09/07/17 06/21/20 mg-acetaminophen 500 mg tablet (Tylenol PM Extra Strength) Glucose Tablets See Rx Instructions PO .PRN PRN 05/13/19 06/21/20 magnesium oxide 400 mg PO BID 05/13/19 06/21/20 pen needle, diabetic 31 gauge x 05/13/19 06/21/20 5/16 (Comfort EZ Pen Altus) atorvastatin 80 mg tablet 40 mg PO BEDTIME 04/30/20 06/21/20 carvedilol 3.125 mg tablet 3.125 mg PO BID 04/30/20 06/21/20 potassium chloride 8 mEq 8 meq PO DAILY 04/30/20 06/21/20 tablet,extended release Previous Rx's Medication Instructions Recorded Disabled Parking Permit #1 ea 12/28/17 Insulin Altus (Ulticare) #400 ea 06/01/19 metformin 1,000 mg tablet 1,000 mg PO BID #180 tabs 08/31/19 insulin lispro 100 unit/mL See Rx Instructions SUBCUT BID #15 01/03/20 subcutaneous pen (Humalog KwikPen mL (U-100) Insulin) insulin glargine 100 unit/mL (3 See Rx Instructions SUBCUT 01/13/20 mL) subcutaneous pen (Lantus .COMPLEX #15 mL Solostar U-100 Insulin) carbidopa ER 25 mg-levodopa 100 mg 1 tab PO BEDTIME #30 tabs 03/02/20 tablet,extended release One Touch Verio test strips #250 ea 03/07/20 triamcinolone acetonide 0.1 % 1 applic topical QID #453.6 grams 04/30/20 topical cream nirmatrelvir 150 mg-ritonavir 100 1 tab PO QAM AND QPM 5 days #10 09/21/21 mg tablet (EUA) (Paxlovid) tabs Allergies Allergy/AdvReac Type Severity Reaction Status Date / Time No Known Drug Allergies Allergy Verified 09/21/21 10:24 Review of Systems <DALTON Whitten - Last Filed: 09/21/21 14:49> Review of Systems Narrative: General: denies fever, chills, she is febrile today, endorses headache, fatigue, and shortness of breath with exertion Head/Neck: denies headache, neck pain Eyes: denies visual changes, eye pain Cardio: denies chest pain, palpitations Respiratory: Endorses exertional shortness of breath and cough GI: denies abdominal pain, nausea, vomiting, or diarrhea : denies dysuria, hematuria or flank pain MSK: denies new joint pain, muscle weakness or swelling Skin: denies rash, itching or wound Neuro: denies numbness, tingling, dizziness Patient History <DALTON Whitten - Last Filed: 09/21/21 14:49> Medical History Anemia, unspecified (08/04/17) Anxiety Carpal tunnel syndrome Cataract Chronic back pain Chronic renal failure, stage 3 (moderate) Coronary artery disease Degenerative disc disease, cervical Depression Diabetes mellitus Fibroids Fibromyalgia Foot pain Headache Hearing loss Hemorrhoids Lymphoma Melanoma Neck pain Obstructive sleep apnea of adult Osteoarthritis of shoulders, bilateral Osteoporosis PAC (premature atrial contraction) Peripheral edema PVCs (premature ventricular contractions) Restless leg syndrome Shoulder pain Shoulder pain Skin cancer Sleep apnea Urinary incontinence Vertigo Surgical History Cholecystitis Hx of hysterectomy Family History Father Diabetes mellitus Heart disease Fall Mother Diabetes mellitus Cancer Social History marital status: household members: significant other and children pets and animals: Yes education level: high school occupational status: other stephanie/jainism: Buddhism seatbelt use: always helmet use: No water heater temp set < 120 deg: Yes working smoke detector in home: No fire extinguisher in home: No carbon monox detector in home: No firearms in home: No Smoking Status: Former smoker during the past year weight has: increased > 10 lbs well-balanced diet: about half the time daily servings fruits/ve-1 caffeine: No eating out: rarely or never Smoking Status: Former smoker alcohol intake frequency: holidays/special occasions only Substance Use Type: does not use Exam <DALTON Whitten - Last Filed: 09/21/21 14:49> Narrative Exam Narrative: Independently reviewed vitals signs and nursing notes. General: cooperative, comfortable, in no acute distress, well groomed Head: atraumatic, symmetrical facial expressions Neck: supple Eyes: equal round and reactive, EOMI, conjunctiva normal Nose: nares patent, no rhinorrhea Mouth/Throat: moist mucus membranes Cardiovascular: regular rate and rhythm, no peripheral edema, warm extremities Respiratory: normal effort, tachypnea, able to speak in complete sentences, no audible wheezing, stridor, or rales. No retractions or tachypnea. No crackles or significantly diminished breath sounds. GI: abdomen soft, obese, nontender to palpation, nondistended, no masses, no exquisite tenderness with exam, without guarding or rebound. MSK: moves all extremities, neurovascularly intact, no weakness, normal tone Skin: brisk capillary refill, no rash, no erythema Neuro: normal speech and cognition, A&O x3 Psych: mental status is grossly normal, congruent mood, normal affect, pleasant and cooperative Initial Vital Signs Initial Vital Signs: Vital Signs Temperature 102.5 F H 09/21/21 10:18 Pulse Rate 99 H 09/21/21 10:18 Respiratory Rate 24 09/21/21 10:18 Blood Pressure 167/67 H 09/21/21 10:18 Pulse Oximetry 95 09/21/21 10:18 Oxygen Delivery Method 09/21/21 10:18 <Pauline Wiggins DO - Last Filed: 09/21/21 18:19> Initial Vital Signs Initial Vital Signs: Vital Signs Temperature 102.5 F H 09/21/21 10:18 Pulse Rate 99 H 09/21/21 10:18 Respiratory Rate 24 09/21/21 10:18 Blood Pressure 167/67 H 09/21/21 10:18 Pulse Oximetry 95 09/21/21 10:18 Oxygen Delivery Method 09/21/21 10:18 Course <DALTON Whitten - Last Filed: 09/21/21 14:49> Orders Ordered: ED Orders 09/21/21 10:21 COVID19 -Nasal RAPID/Pre-Proc Stat 09/21/21 10:33 XR chest 1V Stat EKG-12 Lead Stat 09/21/21 11:25 Complete Blood Count AUTO DIFF Stat Comprehensive Metabolic Panel Stat Lactate (Lactic Acid) Stat Lipase Stat Magnesium Stat Partial Thromboplastin Time Stat Procalcitonin Stat Prothrombin Time INR Stat Troponin & CK Cardiac Panel Stat 09/21/21 11:45 Blood Culture Stat Discontinued Medications Acetaminophen (Acetaminophen 325 Mg Tablet) 975 mg PO NOW ONE Stop: 09/21/21 10:27 Last Admin: 09/21/21 10:31 Dose: 975 mg Documented By: PARIS Sodium Chloride (Normal Saline 0.9%) 1,000 mls @ 1,000 mls/hr IV BOLUS ONE Stop: 09/21/21 11:33 Last Infusion: 09/21/21 14:26 Dose: 0 mls/hr Documented By: Admin: 09/21/21 11:19 Dose: 1,000 mls/hr Documented By: PARIS(2) Loratadine (Loratadine 10 Mg Tablet) 10 mg PO NOW ONE Stop: 09/21/21 13:04 Last Admin: 09/21/21 14:05 Dose: 10 mg Documented By: DAVID Vital Signs Vital signs: Vital Signs - 8 hr 09/21/21 11:30 09/21/21 11:31 09/21/21 11:31 Pulse Rate 99 H 98 H Respiratory Rate Blood Pressure 190/75 H Pulse Oximetry 92 93 Oxygen Delivery Method 09/21/21 12:00 09/21/21 12:06 09/21/21 12:06 Pulse Rate 87 89 Respiratory Rate Blood Pressure 130/63 Pulse Oximetry 92 94 Oxygen Delivery Method 09/21/21 12:30 09/21/21 12:31 09/21/21 12:31 Pulse Rate 87 86 Respiratory Rate Blood Pressure 114/54 L Pulse Oximetry 93 92 Oxygen Delivery Method 09/21/21 12:58 09/21/21 12:58 09/21/21 13:00 Pulse Rate 85 86 Respiratory Rate Blood Pressure 124/58 L Pulse Oximetry 92 92 Oxygen Delivery Method 09/21/21 14:27 Pulse Rate 81 Respiratory Rate 28 H Blood Pressure 131/59 L Pulse Oximetry 94 Oxygen Delivery Method Room Air <Pauline Wiggins DO - Last Filed: 09/21/21 18:19> Orders Ordered: ED Orders 09/21/21 10:21 COVID19 -Nasal RAPID/Pre-Proc Stat 09/21/21 10:33 XR chest 1V Stat EKG-12 Lead Stat 09/21/21 11:25 Complete Blood Count AUTO DIFF Stat Comprehensive Metabolic Panel Stat Lactate (Lactic Acid) Stat Lipase Stat Magnesium Stat Partial Thromboplastin Time Stat Procalcitonin Stat Prothrombin Time INR Stat Troponin & CK Cardiac Panel Stat 09/21/21 11:45 Blood Culture Stat Discontinued Medications Acetaminophen (Acetaminophen 325 Mg Tablet) 975 mg PO NOW ONE Stop: 09/21/21 10:27 Last Admin: 09/21/21 10:31 Dose: 975 mg Documented By: PARIS Sodium Chloride (Normal Saline 0.9%) 1,000 mls @ 1,000 mls/hr IV BOLUS ONE Stop: 09/21/21 11:33 Last Infusion: 09/21/21 14:26 Dose: 0 mls/hr Documented By: Admin: 09/21/21 11:19 Dose: 1,000 mls/hr Documented By: PARIS(2) Loratadine (Loratadine 10 Mg Tablet) 10 mg PO NOW ONE Stop: 09/21/21 13:04 Last Admin: 09/21/21 14:05 Dose: 10 mg Documented By: DAVID Vital Signs Vital signs: Vital Signs - 8 hr 09/21/21 11:30 09/21/21 11:31 09/21/21 11:31 Pulse Rate 99 H 98 H Respiratory Rate Blood Pressure 190/75 H Pulse Oximetry 92 93 Oxygen Delivery Method 09/21/21 12:00 09/21/21 12:06 09/21/21 12:06 Pulse Rate 87 89 Respiratory Rate Blood Pressure 130/63 Pulse Oximetry 92 94 Oxygen Delivery Method 09/21/21 12:30 09/21/21 12:31 09/21/21 12:31 Pulse Rate 87 86 Respiratory Rate Blood Pressure 114/54 L Pulse Oximetry 93 92 Oxygen Delivery Method 09/21/21 12:58 09/21/21 12:58 09/21/21 13:00 Pulse Rate 85 86 Respiratory Rate Blood Pressure 124/58 L Pulse Oximetry 92 92 Oxygen Delivery Method 09/21/21 14:27 Pulse Rate 81 Respiratory Rate 28 H Blood Pressure 131/59 L Pulse Oximetry 94 Oxygen Delivery Method Room Air MDM - URI/Sore Throat <Kinjal Herring [facility] - Last Filed: 09/21/21 14:49> Lab Data Result diagrams: 09/21/21 11:25 09/21/21 11:25 Labs: Lab Results 09/21/21 09/21/21 09/21/21 Range/Units 10:21 11:25 11:25 WBC 5.7 (4.5-11.0) X10^3/uL RBC 3.95 L (4.0-5.2) X10^6/uL Hgb 10.8 L (12.0-16.0) g/dL Hct 32.0 L (36-46) % MCV 81.1 (80-100) fL MCH 27.3 (26-34) PG MCHC 33.7 (30-36) % RDW 15.1 H (11.6-14.8) % Plt Count 152 (150-400) X10^3/uL Neut % (Auto) 85.2 H (50-75) % Lymph % (Auto) 5.6 L (25-40) % [place] % (Auto) 8.6 (3-14) % Eos % (Auto) 0.3 L (2-4) % Baso % (Auto) 0.3 (0-2) % Neut # (Auto) 4900 (5489-6900) /uL Lymph # (Auto) 300 L (9133-6259) /uL [place] # (Auto) 500 (0-900) /uL Eos # (Auto) 0 (0-450) /uL Baso # (Auto) 0 (0-100) /uL PT 12.4 (10.1-12.7) SECONDS INR 1.1 (0.9-1.3) APTT 34 (26.4-36.2) SECONDS Sodium (137-145) mmol/L Potassium (3.4-5.1) mmol/L Chloride (98-107) mmol/L Carbon Dioxide (22-32) mmol/L BUN (7-17) mg/dL Creatinine (0.52-1.04) mg/dL Estimated GFR (>60) mL/min BUN/Creatinine Ratio (6-22) Glucose (80-110) mg/dL Lactate (0.7-2.1) mmol/L Calcium (8.4-10.2) mg/dL Magnesium (1.6-2.3) mg/dL Total Bilirubin (0.2-1.3) mg/dL AST (14-36) IU/L ALT (<35) IU/L Alkaline Phosphatase (38-126) U/L Total Creatine Kinase (30-135) U/L CK-MB (CK-2) CK-MB (CK-2) Rel Index Troponin I (0.01-0.034) ng/mL Total Protein (6.3-8.2) g/dL Albumin (3.5-5.0) g/dL Globulin (1.7-4.1) g/dL Albumin/Globulin Ratio (1.0-2.8) Lipase (23-300) U/L Procalcitonin (<0.5) ng/mL SARS-CoV-2 (PCR) Positive H (Negative) 09/21/21 09/21/21 09/21/21 Range/Units 11:25 11:25 11:25 WBC (4.5-11.0) X10^3/uL RBC (4.0-5.2) X10^6/uL Hgb (12.0-16.0) g/dL Hct (36-46) % MCV (80-100) fL MCH (26-34) PG MCHC (30-36) % RDW (11.6-14.8) % Plt Count (150-400) X10^3/uL Neut % (Auto) (50-75) % Lymph % (Auto) (25-40) % [place] % (Auto) (3-14) % Eos % (Auto) (2-4) % Baso % (Auto) (0-2) % Neut # (Auto) (1823-1446) /uL Lymph # (Auto) (7205-1091) /uL [place] # (Auto) (0-900) /uL Eos # (Auto) (0-450) /uL Baso # (Auto) (0-100) /uL PT (10.1-12.7) SECONDS INR (0.9-1.3) APTT (26.4-36.2) SECONDS Sodium 138 (137-145) mmol/L Potassium 3.9 (3.4-5.1) mmol/L Chloride 104 (98-107) mmol/L Carbon Dioxide 27 (22-32) mmol/L BUN 21 H (7-17) mg/dL Creatinine 1.40 H (0.52-1.04) mg/dL Estimated GFR 38 L (>60) mL/min BUN/Creatinine Ratio 15.0 (6-22) Glucose 112 H (80-110) mg/dL Lactate 0.7 (0.7-2.1) mmol/L Calcium 8.9 (8.4-10.2) mg/dL Magnesium 1.9 (1.6-2.3) mg/dL Total Bilirubin 0.6 (0.2-1.3) mg/dL AST 31 (14-36) IU/L ALT 17 (<35) IU/L Alkaline Phosphatase 126 (38-126) U/L Total Creatine Kinase 62 (30-135) U/L CK-MB (CK-2) TNP CK-MB (CK-2) Rel Index TNP Troponin I < 0.012 (0.01-0.034) ng/mL Total Protein 7.1 (6.3-8.2) g/dL Albumin 3.8 (3.5-5.0) g/dL Globulin 3.3 (1.7-4.1) g/dL Albumin/Globulin Ratio 1.2 (1.0-2.8) Lipase 78 (23-300) U/L Procalcitonin 0.12 (<0.5) ng/mL SARS-CoV-2 (PCR) (Negative) Imaging Data Chest x-ray: Radiologist's Impression: PROCEDURE:? XR CHEST 1V ? INDICATIONS:? chest pain ? TECHNIQUE:? One view of the chest was acquired.? ? COMPARISON:? [facility], CT, CT ANGIO CHEST PE PROTOCOL, 05/09/2018, 13:42.? [facility], CR, CHEST 1 VIEW, 05/22/2016, 17:38.? [facility], CR, XR CHEST 2V, 10/01/2017, 16:05.? [facility], CR, XR CHEST 1V, 05/09/2018, 13:20. ? FINDINGS:? ? Surgical changes and devices:? None.? ? Lungs and pleura:? Mild, poorly defined infiltrates are seen at the lung bases.? There is stable elevation of the left hemidiaphragm. On this semiupright portable chest examination, no large pneumothorax or large pleural effusions are seen.? Right ? Mediastinum:? Mediastinal contours appear normal.? Heart size is mildly enlarged.? ? Bones and chest wall:? No suspicious bony lesions.? Overlying soft tissues appear unremarkable.? ? ? IMPRESSION:? Mild poorly defined infiltrates can be seen at the lung bases, which are suspicious for infectious infiltrate.? However, differential diagnosis includes mild atelectasis. ? Mild cardiomegaly. ? ? Dictated by: Pierre Dorsey M.D. on 09/21/2021 at 10:45 ? ? Approved by: Pierre Dorsey M.D. on 09/21/2021 at 10:47 ? ECG Data Interpretation: EKG independently reviewed by myself and Dr. Wiggins and reveals normal sinus rhythm with occasional PVCs at 93 bpm with regular axis and intervals. No STEMI, ST segment changes, or acute ischemic changes. MDM Narrative Medical decision making narrative: This is an 80-year-old female with history of diabetes and insulin dependent, hyperlipidemia, hypertension, osteoarthritis, CAD with CKD stage 3 who presents to the emergency department with three days of a cough, shortness of breath with exertion, fatigue, and feeling poorly for the last several days. She was febrile in triage to 102.5 ? F, is tachypneic, without increased respiratory effort or abnormal breath sounds. She does not have any oxygen requirement, chest x-ray shows mild poorly defined infiltrates at the lung bases and suspicious for infectious infiltrate, mild cardiomegaly. COVID PCR is positive today. White count does not show any leukocytosis, she has mildly decreased H&H with a hemoglobin of 10.8 and hematocrit of 32, she does not have any pallor, weakness, or signs of bleeding. No significant electrolyte abnormalities, her creatinine is elevated above her baseline of 1.2 up to 1.4, GFR is 38 compared to prior of 42.7 last year, procalcitonin is 0.12, lipase is 78, no elevation in liver enzymes, troponin is negative. Patient was given 700 mL of normal saline for dehydration, she was given Tylenol for her fever, she was afebrile on my exam with a temperature of 98.9F but nursing did not chart a temperature. She did not have tachycardia, she was tachypneic without hypoxia. Discussed her COVID positive status, recommend Paxlovid. She was treated with renal dosing at the 150/100 tablets b.i.d. for five days for total of 20 tablets. She was instructed to discontinue her atorvastatin starting today and avoid taking it until after completing her medications. She is not on anticoagulants, she was encouraged to stay hydrated, use [id number] decongestants and allergy medicine as needed for her symptoms. Recommend Tylenol every 6-8 hours as needed for pain and fever. Patient understands to follow-up with her primary care provider and was given strict return precautions for returning to the emergency department for any new or worsening conditions. Patient is appropriate and amenable to discharge home. Vital signs are stable on repeat examination is unremarkable. Patient has been informed of results. Patient has been given strict return to ER precautions for any new or worsening symptoms. Patient understands to follow up closely with outpatient providers as instructed. Patient understands plan and agrees to discharge home. All questions and concerns answered at this time. <Pauline Wiggins, - Last Filed: 09/21/21 18:19> Lab Data Labs: Lab Results 09/21/21 09/21/21 09/21/21 Range/Units 10:21 11:25 11:25 WBC 5.7 (4.5-11.0) X10^3/uL RBC 3.95 L (4.0-5.2) X10^6/uL Hgb 10.8 L (12.0-16.0) g/dL Hct 32.0 L (36-46) % MCV 81.1 (80-100) fL MCH 27.3 (26-34) PG MCHC 33.7 (30-36) % RDW 15.1 H (11.6-14.8) % Plt Count 152 (150-400) X10^3/uL Neut % (Auto) 85.2 H (50-75) % Lymph % (Auto) 5.6 L (25-40) % [place] % (Auto) 8.6 (3-14) % Eos % (Auto) 0.3 L (2-4) % Baso % (Auto) 0.3 (0-2) % Neut # (Auto) 4900 (1571-6826) /uL Lymph # (Auto) 300 L (1100-1297) /uL [place] # (Auto) 500 (0-900) /uL Eos # (Auto) 0 (0-450) /uL Baso # (Auto) 0 (0-100) /uL PT 12.4 (10.1-12.7) SECONDS INR 1.1 (0.9-1.3) APTT 34 (26.4-36.2) SECONDS Sodium (137-145) mmol/L Potassium (3.4-5.1) mmol/L Chloride (98-107) mmol/L Carbon Dioxide (22-32) mmol/L BUN (7-17) mg/dL Creatinine (0.52-1.04) mg/dL Estimated GFR (>60) mL/min BUN/Creatinine Ratio (6-22) Glucose (80-110) mg/dL Lactate (0.7-2.1) mmol/L Calcium (8.4-10.2) mg/dL Magnesium (1.6-2.3) mg/dL Total Bilirubin (0.2-1.3) mg/dL AST (14-36) IU/L ALT (<35) IU/L Alkaline Phosphatase (38-126) U/L Total Creatine Kinase (30-135) U/L CK-MB (CK-2) CK-MB (CK-2) Rel Index Troponin I (0.01-0.034) ng/mL Total Protein (6.3-8.2) g/dL Albumin (3.5-5.0) g/dL Globulin (1.7-4.1) g/dL Albumin/Globulin Ratio (1.0-2.8) Lipase (23-300) U/L Procalcitonin (<0.5) ng/mL SARS-CoV-2 (PCR) Positive H (Negative) 09/21/21 09/21/21 09/21/21 Range/Units 11:25 11:25 11:25 WBC (4.5-11.0) X10^3/uL RBC (4.0-5.2) X10^6/uL Hgb (12.0-16.0) g/dL Hct (36-46) % MCV (80-100) fL MCH (26-34) PG MCHC (30-36) % RDW (11.6-14.8) % Plt Count (150-400) X10^3/uL Neut % (Auto) (50-75) % Lymph % (Auto) (25-40) % [place] % (Auto) (3-14) % Eos % (Auto) (2-4) % Baso % (Auto) (0-2) % Neut # (Auto) (2278-1821) /uL Lymph # (Auto) (7062-7119) /uL [place] # (Auto) (0-900) /uL Eos # (Auto) (0-450) /uL Baso # (Auto) (0-100) /uL PT (10.1-12.7) SECONDS INR (0.9-1.3) APTT (26.4-36.2) SECONDS Sodium 138 (137-145) mmol/L Potassium 3.9 (3.4-5.1) mmol/L Chloride 104 (98-107) mmol/L Carbon Dioxide 27 (22-32) mmol/L BUN 21 H (7-17) mg/dL Creatinine 1.40 H (0.52-1.04) mg/dL Estimated GFR 38 L (>60) mL/min BUN/Creatinine Ratio 15.0 (6-22) Glucose 112 H (80-110) mg/dL Lactate 0.7 (0.7-2.1) mmol/L Calcium 8.9 (8.4-10.2) mg/dL Magnesium 1.9 (1.6-2.3) mg/dL Total Bilirubin 0.6 (0.2-1.3) mg/dL AST 31 (14-36) IU/L ALT 17 (<35) IU/L Alkaline Phosphatase 126 (38-126) U/L Total Creatine Kinase 62 (30-135) U/L CK-MB (CK-2) TNP CK-MB (CK-2) Rel Index TNP Troponin I < 0.012 (0.01-0.034) ng/mL Total Protein 7.1 (6.3-8.2) g/dL Albumin 3.8 (3.5-5.0) g/dL Globulin 3.3 (1.7-4.1) g/dL Albumin/Globulin Ratio 1.2 (1.0-2.8) Lipase 78 (23-300) U/L Procalcitonin 0.12 (<0.5) ng/mL SARS-CoV-2 (PCR) (Negative) Discharge Plan Departure Patient Disposition: Home Clinical Impression: COVID-19 Instructions: DI for COVID-19 (Suspected or Confirmed ) Activity Restrictions/Additional Instructions: *You have been diagnosed with COVID-19. Very important: Please stop taking your atorvastatin today and resume only after your prescription of Paxlovid is completed. Please use Tylenol 650 mg every 6 hours as needed for fever and aches and pains. You may use Claritin as needed for congestion or Flonase. It is okay to use Mucinex for phlegm if you have been coughing up a lot. Please stay hydrated, this is very important, remember to eat healthy foods so you can absorb some nutrients and come back to the emergency department if you have any worsening of her symptoms. I hope that you feel better soon. *What to do: *Please continue to take your regular medications as directed. [ x] New medication prescriptions sent to your pharmacy: [ [facility]] [ ] New medication written as a paper prescription [ ] No new medications given *Please follow up with your primary care provider in 2-3 days, call for an appointment. Let them know you were seen in the Emergency Department and that we asked that you be seen for follow-up. We will electronically transmit a record of today's note if your PCP is in our system *If you do not have a primary care provider please contact [phone] to establish care with one of the [facility] primary care providers. *Return to Emergency Department if you should have any new, worsening or concerning symptoms, such as [fever greater than 101F, chills, worsening pain, persistent vomiting or other bothersome symptoms] Prescriptions: New Paxlovid (EUA) 150-100 mg tablet 1 tab PO QAM AND QPM 5 Days Qty: 10 0RF Rx Instructions: 1 tab orally; do not take your atorvastatin while taking this medication. Please hold your atorvastatin until after you have completed five days of this medication, then you may resume it the next day. No Action diphenhydramine-acetaminophen [Tylenol PM Extra Strength] 25-500 mg tablet 1 tab PO BEDTIME PRN VITAMIN D (Vitamin D3) 1,000 mg PO Q DAY Qty: 0 furosemide 80 MG tablet 80 mg PO QDAY Qty: 0 aspirin 81 MG tablet,delayed release (DR/EC) 81 mg PO QDAY Qty: 0 (DME) Disabled Parking Permit Qty: 1 0RF Dose Instruction: As directed Rx Instructions: I certify that my patient has a condition which qualifies them for a disabled parking privileges. (DME) Insulin Altus (Ulticare) 31g x 5/16 Qty: 400 3RF Rx Instructions: Use to inject subquetaneously 3-4 times a day metformin 1,000 mg tablet 1,000 mg PO BID Qty: 180 3RF Lantus Solostar U-100 Insulin 100 unit/mL (3 mL) insulin pen See Rx Instructions SUBCUT .COMPLEX Qty: 15 3RF Dose Instruction: 30 UNITS IN AM, 20 UNITS IN PM SUBCUT ; Rx Instructions: 15 UNITS IN AM, 15 UNITS IN PM SUBCUT ; 15 syringes (DME) One Touch Verio test strips Qty: 250 3RF Dose Instruction: As directed Rx Instructions: Use the one touch verio test strips to test blood sugars up to 3 times daily Humalog KwikPen Insulin 100 unit/mL insulin pen See Rx Instructions SUBCUT BID Qty: 15 3RF Rx Instructions: 10 units in the morning subcut every morning and night; SUBCUT twice a day; carbidopa-levodopa 25-100 mg tablet extended release 1 tab PO BEDTIME Qty: 30 4RF magnesium oxide 400 mg magnesium tablet 400 mg PO BID (DME) pen needle, diabetic [Comfort EZ Pen Altus] 31 gauge x 5/16 needle See Dose Instructions .ROUTE .MEDSUPPLY Dose Instruction: As directed Rx Instructions: use to inject subquetaneously 2-4 times a day. Glucose Tablets See Rx Instructions PO .PRN PRN Rx Instructions: 1-2 tablets PO PRN; carvedilol 3.125 mg tablet 3.125 mg PO BID potassium chloride 8 mEq tablet extended release 8 meq PO DAILY atorvastatin 80 mg tablet 40 mg PO BEDTIME triamcinolone acetonide 0.1 % cream 1 applic topical QID Qty: 453.6 3RF Referrals: Tere Bryan MD [Primary Care Provider] - Visit Report Forms: Patient Portal/API <Pauline Wiggins DO - Last Filed: 09/21/21 18:19> Cosign ED Attending Cosestherature Attestation: I was immediately available in the department for consultation. Documentation has been reviewed.
[2021-09-21] MEDS: LORATADINE 10 MG TABLET PO (14:05)
== END 2021-09-21 14:20 | disposition home or self-care (01) ==
PROVIDERS: Emergency Medicine; Emergency Provider Nurse Practitioner Critical Care Medicine; Family Provider Family Medicine; PCP Internal Medicine
DX: U07.1 COVID-19 (principal); R07.9 Chest pain, unspecified; R11.0 Nausea
CPT/HCPCS: 36415; 71045; 80053; 82550; 83605; 83690; 83735; 84145; 84484; 85025; 85610; 85730; 87040; 87635; 93005; 93010; 96360; 96361; 99284; C9803

== ENCOUNTER → 2021-10-22 07:18 | Outpatient (CLI) | payer OTHER, SELFPAY ==
[2021-10-22 09:40] LABS: Cholesterol 114 mg/dL (140-199); HDL Cholesterol 38 mg/dL (40-60); LDL Cholesterol Calculated 52 mg/dL (<100); Triglycerides 122 mg/dL (35-150)
== END ==
PROVIDERS: Family Provider Family Medicine; PCP Internal Medicine; Referring Provider Specialist; Visit Provider Specialist
DX: E78.2 Mixed hyperlipidemia (principal)
CPT/HCPCS: 36415; 80061

== ENCOUNTER → 2021-12-04 09:40 | Outpatient (CLI) | payer OTHER, SELFPAY ==
[2021-12-04 11:58] LABS: COVID19 -Nasal RAPID Negative (Negative)
--- NOTE | 2021-12-05 18:45 | DI.NM.S_ITS ---
DATE OF SERVICE: 12/04/2021 PROCEDURE PERFORMED: Pharmacologic vasodilator stress and rest myocardial perfusion imaging with gating to assess ejection fraction and regional wall motion. ORDERING PROVIDER: Dr. Hansel Gatica. INDICATIONS: The patient is a morbidly obese 80-year-old female with atypical chest discomfort and a history of coronary disease. PHARMACOLOGIC STRESS: Per protocol, 0.4 mg of regadenoson was infused with a normal hemodynamic response. She had no chest discomfort and developed only minimal dyspnea. Her resting ECG shows sinus rhythm with normal ST segments. With stress, there were no significant ST-segment shifts. She had occasional isolated PVCs, but no complex ventricular ectopy. Per protocol, 27.1 millicuries of technetium-99m Myoview was injected. She was imaged 25 minutes later using a gated SPECT acquisition protocol. The day prior while at rest, she had been injected with 25.1 millicuries of technetium-99m Myoview and was imaged 20 minutes later, again using a gated SPECT acquisition protocol. FINDINGS: 1. Raw data: There is marginal myocardial tracer uptake, but with prominent breast shadows that clearly produce significant breast attenuation artifact. She was unable to lay prone to assess for the breast attenuation, however. The lung/heart ratio was normal at 0.38 with a normal TID ratio of 1.19. 2. Quantitated gated SPECT: Post-stress ejection fraction is 76% without any focal wall motion abnormality and specifically the distal anteroapical segment has normal contractility. The resting ejection fraction is 80% with a normal resting end-diastolic volume of 89 mL. The right ventricle free wall appears to have increased tracer uptake which can be a sign of a right ventricular overload condition. 3. Myocardial perfusion imaging: Post-stress supine images shows a fairly normal myocardial perfusion pattern with a very subtle defect in the distal anterolateral wall, extending to the apex in a pattern that would be consistent with breast attenuation artifact, although there is no prone imaging available to assess for this. The resting images show a similar perfusion pattern, although with slight improvement in the distal anterolateral segment but this is relatively nonspecific, given the subtlety of the abnormality and the significant breast attenuation artifact. IMPRESSION: 1. Low-risk, probable normal ,myocardial perfusion study. 2. Small, subtle, partially reversible perfusion defect in the distal anterolateral apex. The may reflect breast attenuation artifact with differential breast positioning, but a small volume of myocardial ischemia cannot be entirely excluded, yet if present, is low risk. 3. Normal left ventricular systolic function without any focal wall motion abnormality. The right ventricle free wall appears to have increased tracer uptake which can be a sign of a right ventricular overload condition. 4. No angina or ECG evidence of myocardial ischemia with pharmacologic vasodilator stress. She had rare isolated PVCs but no complex ectopy. 5. Compared to the previous study from 02/06/2014, a similar perfusion pattern is seen, although the distal anterolateral defect is slightly more prominent, although the previous study was compromised by relatively poor image quality. Left ventricular ejection fraction was previously 74% with an end- diastolic volume of 104 mL, suggesting the absence of any significant change since the previous exam. Estefania Cwoan - YURI/arielle/candace doc#: [id number]/job#: [id number] dd: 12/05/2021 16:56:00 dt: 12/05/2021 18:20:00 DICTATING /COPIES TO: Hansel Gatica MD COPIES MNE: NOÉ;
== END ==
PROVIDERS: Family Provider Family Medicine; PCP Internal Medicine; Visit Provider Specialist
DX: R07.89 Other chest pain (principal); R06.00 Dyspnea, unspecified; I25.10 Atherosclerotic heart disease of native coronary artery without angina pectoris; E66.01 Morbid (severe) obesity due to excess calories; Z68.37 Body mass index [BMI] 37.0-37.9, adult; Z20.822 Contact with and (suspected) exposure to COVID-19
CPT/HCPCS: 78452; 87635; 93017; A9502; J2785

== ENCOUNTER → 2022-01-28 08:13 | Outpatient (CLI) | payer OTHER, SELFPAY ==
[2022-01-28 10:13] LABS: BUN Creatinine Ratio 17.9 (6-22); Blood Urea Nitrogen 21 mg/dL (7-17); Calcium 9.3 mg/dL (8.4-10.2); Carbon Dioxide 33 mmol/L (22-32); Chloride 101 mmol/L (98-107); Estimated Glomerular Filt Rate 46 mL/min (>60); Glucose 85 mg/dL (80-110); HEMOLYSIS < 15 (0-50); Magnesium 1.9 mg/dL (1.6-2.3); Potassium 3.9 mmol/L (3.4-5.1); Sodium 143 mmol/L (137-145)
== END ==
PROVIDERS: Family Provider Family Medicine; PCP Internal Medicine; Referring Provider Specialist; Visit Provider Specialist
DX: I10 Essential (primary) hypertension (principal)
CPT/HCPCS: 36415; 80048; 83735

== ENCOUNTER → 2022-04-24 14:07 | Outpatient (CLI) | payer OTHER, SELFPAY ==
--- NOTE | 2022-04-24 14:09 | DI.MG.S_ITS ---
BILATERAL DIGITAL SCREENING MAMMOGRAM 3D/2D WITH CAD: 04/24/2022 CLINICAL: Routine screening. Comparison is made to exams dated: 03/12/2021 mammogram, 07/04/2014 mammogram, and 12/14/2012 mammogram - [facility]. There are scattered areas of fibroglandular density in both breasts (category b / 25%-50% glandular tissue). Current study was also evaluated with a Computer Aided Detection (CAD) system. There are benign vascular calcifications in both breasts. No significant masses, calcifications, or other findings are seen in either breast. There has been no significant interval change. IMPRESSION: BENIGN There is no mammographic evidence of malignancy. A 1 year screening mammogram is recommended. Based on the Tyrer Cuzick model (a risk assessment model) the patient's lifetime risk is 0.3% and her 10 year risk is 0.0%. According to the ACR, ACS, and NCCN guidelines, an annual breast MRI exam along with mammogram is recommended if the patient's lifetime risk is 20% or greater. This exam was interpreted at Station ID: [id number]. NOTE: For mammograms, a report in lay terms will be sent to the patient. Approximately 15% of breast malignancies will not be visualized mammographically. In the management of a palpable breast mass, a negative mammogram must not discourage biopsy of a clinically suspicious lesion. Electronically Signed By: Don Ortiz M.D., jr/wendy:04/24/2022 15:31:57 letter sent: Normal Exam ACR BI-RADS Category 2: Benign Finding(s) 3342F
== END ==
PROVIDERS: Family Provider Family Medicine; PCP Internal Medicine; Referring Provider Internal Medicine; Visit Provider Internal Medicine
DX: Z12.31 Encounter for screening mammogram for malignant neoplasm of breast (principal)
CPT/HCPCS: 77063; 77067

== ENCOUNTER 2022-08-08 11:39 | Emergency (ER) | payer OTHER, SELFPAY ==
[2022-08-08 11:42] VITALS: BP 141/65; PULSE 71; RESP 15; TEMP 36.6; O2SAT 98; BMI 34.0
--- NOTE | 2022-08-08 11:45 | DI.RAD.S_ITS ---
PROCEDURE: XR FOOT LT MIN 3V INDICATIONS: foot pain and swelling TECHNIQUE: 3 views of the foot were acquired. COMPARISON: None. FINDINGS: Bones: No fractures or dislocations. No suspicious bony lesions. Soft tissues: No tibiotalar joint effusion. Achilles tendon appears normal. IMPRESSION: A definite source of pain and swelling is not identified. Mild osteoarthritic change at the joint spaces at the forefoot. If unusual symptoms persist delayed plain films may be warranted for improved detection of nondisplaced fractures. Dictated by: George Joshi M.D. on 08/08/2022 at 13:03 Approved by: George Joshi M.D. on 08/08/2022 at 13:05
--- NOTE | 2022-08-08 14:56 | ED.EXTPRO ---
HPI - Extremity Problem <Sahara Castro PA-C - Last Filed: 08/08/22 15:31> General Chief complaint: Extremity Problem,Nontraumatic Stated complaint: poss. LT foot broken at least a couple of days Time Seen by Provider: 08/08/22 14:49 Mode of arrival: Wheelchair History of Present Illness HPI Narrative: Patient is an 81-year-old female presenting for evaluation of left foot pain x3 days. She says that she has diabetes type 2 and neuropathy as well as hyperlipidemia. She does take carbidopa levodopa. Says she does not have much sensation in her feet. She noticed redness and swelling on the lateral aspect of her left foot starting 3 days ago, but can not remember a traumatic injury. She denies any other symptoms. She reports trying softer shoes and it seems to be helping some because it feels a little bit better today. She reports she has been trying to keep it elevated and can flex extend philippe and invert her foot with some pain on the left side. She says she takes Tylenol for pain. Related Data Home Medications Medication Instructions Recorded Confirmed VITAMIN D (Vitamin D3) 1,000 mg PO Q DAY ##0 11/04/10 06/21/20 furosemide 80 mg tablet 80 mg PO QDAY ##0 11/06/11 06/21/20 aspirin 81 mg tablet,delayed 81 mg PO QDAY ##0 06/23/17 06/21/20 release diphenhydramine 25 1 tab PO BEDTIME PRN 09/07/17 06/21/20 mg-acetaminophen 500 mg tablet (Tylenol PM Extra Strength) Glucose Tablets See Rx Instructions PO .PRN PRN 05/13/19 06/21/20 magnesium oxide 400 mg PO BID 05/13/19 06/21/20 pen needle, diabetic 31 gauge x 05/13/19 06/21/20 5/16 (Comfort EZ Pen [place]) atorvastatin 80 mg tablet 40 mg PO BEDTIME 04/30/20 06/21/20 carvedilol 3.125 mg tablet 3.125 mg PO BID 04/30/20 06/21/20 potassium chloride 8 mEq 8 meq PO DAILY 04/30/20 06/21/20 tablet,extended release Previous Rx's Medication Instructions Recorded Disabled Parking Permit #1 ea 12/28/17 Insulin [place] (Ulticare) #400 ea 06/01/19 metformin 1,000 mg tablet 1,000 mg PO BID #180 tabs 08/31/19 insulin lispro 100 unit/mL See Rx Instructions SUBCUT BID #15 01/03/20 subcutaneous pen (Humalog KwikPen mL (U-100) Insulin) insulin glargine 100 unit/mL (3 See Rx Instructions SUBCUT 01/13/20 mL) subcutaneous pen (Lantus .COMPLEX #15 mL Solostar U-100 Insulin) carbidopa ER 25 mg-levodopa 100 mg 1 tab PO BEDTIME #30 tabs 03/02/20 tablet,extended release One Touch Verio test strips #250 ea 03/07/20 triamcinolone acetonide 0.1 % 1 applic topical QID #453.6 grams 04/30/20 topical cream Allergies Allergy/AdvReac Type Severity Reaction Status Date / Time No Known Drug Allergies Allergy Verified 08/08/22 11:42 Review of Systems <Sahara Castro PA-C - Last Filed: 08/08/22 15:31> Review of Systems Narrative: per HPI Patient History <Sahara Castro PA-C - Last Filed: 08/08/22 15:31> Medical History Anemia, unspecified (08/04/17) Anxiety Carpal tunnel syndrome Cataract Chronic back pain Chronic renal failure, stage 3 (moderate) Coronary artery disease Degenerative disc disease, cervical Depression Diabetes mellitus Fibroids Fibromyalgia Foot pain Headache Hearing loss Hemorrhoids Lymphoma Melanoma Neck pain Obstructive sleep apnea of adult Osteoarthritis of shoulders, bilateral Osteoporosis PAC (premature atrial contraction) Peripheral edema PVCs (premature ventricular contractions) Restless leg syndrome Shoulder pain Shoulder pain Skin cancer Sleep apnea Urinary incontinence Vertigo Surgical History Cholecystitis Hx of hysterectomy Family History Father Diabetes mellitus Heart disease Fall Mother Diabetes mellitus Cancer Social History marital status: household members: significant other and children pets and animals: Yes education level: high school occupational status: other stephanie/shinto: Cheondoism seatbelt use: always helmet use: No water heater temp set < 120 deg: Yes working smoke detector in home: No fire extinguisher in home: No carbon monox detector in home: No firearms in home: No Smoking Status: Former smoker during the past year weight has: increased > 10 lbs well-balanced diet: about half the time daily servings fruits/ve-1 caffeine: No eating out: rarely or never Smoking Status: Former smoker alcohol intake frequency: holidays/special occasions only Substance Use Type: does not use Exam <Sahara Castro PA-C - Last Filed: 08/08/22 15:31> Initial Vital Signs Initial Vital Signs: Vital Signs Temperature 97.8 F 08/08/22 11:42 Pulse Rate 71 08/08/22 11:42 Respiratory Rate 15 08/08/22 11:42 Blood Pressure 141/65 H 08/08/22 11:42 Pulse Oximetry 98 08/08/22 11:42 Oxygen Delivery Method Room Air 08/08/22 11:42 GENERAL: 81 year old patient appears stated age. Well-developed patient, in no acute distress. HEAD: Atraumatic. Normocephalic. EYES: Pupils equal round No scleral icterus. No injection or drainage. CARDIOVASCULAR: Regular rate and rhythm without murmurs, gallops, or rubs. RESPIRATORY: Clear to auscultation. Breath sounds equal bilaterally. No wheezes, rales, or rhonchi. EXTREMITIES: Edema over lateral edge of left foot, some erythema and tenderness to palpation, calf is not edematous and nontender to palpation, patient is able to dorsiflex plantar flex invert and philippe the left foot. Eversion causes some pain to left lateral foot NEURO: AOx3. SKIN: No pus, exudates or open wound noted on left foot <Paul Daly DO - Last Filed: 08/16/22 03:48> Initial Vital Signs Initial Vital Signs: Vital Signs Temperature 97.8 F 08/08/22 11:42 Pulse Rate 71 08/08/22 11:42 Respiratory Rate 15 08/08/22 11:42 Blood Pressure 141/65 H 08/08/22 11:42 Pulse Oximetry 98 08/08/22 11:42 Oxygen Delivery Method Room Air 08/08/22 11:42 Course <Sahara Castro PA-C - Last Filed: 08/08/22 15:31> Orders Ordered: ED Orders 08/08/22 11:45 XR foot LT min 3V Stat Vital Signs Vital signs: Vital Signs - 8 hr 08/08/22 11:42 08/08/22 15:11 Temperature 97.8 F Pulse Rate 71 Pulse Rate [Left Dorsalis Pedis] 78 Respiratory Rate 15 Blood Pressure 141/65 H Pulse Oximetry 98 Oxygen Delivery Method Room Air <Paul Daly DO - Last Filed: 08/16/22 03:48> Orders Ordered: ED Orders 08/08/22 11:45 XR foot LT min 3V Stat Vital Signs Vital signs: Vital Signs - 8 hr 08/08/22 11:42 08/08/22 15:11 Temperature 97.8 F Pulse Rate 71 Pulse Rate [Left Dorsalis Pedis] 78 Respiratory Rate 15 Blood Pressure 141/65 H Pulse Oximetry 98 Oxygen Delivery Method Room Air MDM - Extremity (Nontraumatic) <Sahara Castro PA-C - Last Filed: 08/08/22 15:31> Imaging Data left foot xray: Radiologist's Impression: PROCEDURE:? XR FOOT LT MIN 3V ? INDICATIONS:? foot pain and swelling ? TECHNIQUE:? 3 views of the foot were acquired.? ? COMPARISON:? None. ? FINDINGS:? ? Bones:? No fractures or dislocations.? No suspicious bony lesions.? ? Soft tissues:? No tibiotalar joint effusion.? Achilles tendon appears normal.? ? ? IMPRESSION:? A definite source of pain and swelling is not identified.? Mild osteoarthritic change at the joint spaces at the forefoot.? If unusual symptoms persist delayed plain films may be warranted for improved detection of nondisplaced fractures. ? ? Dictated by: George Joshi M.D. on 08/08/2022 at 13:03 ? ? Approved by: George Joshi M.D. on 08/08/2022 at 13:05 ? [facility] Narrative Medical decision making narrative: Patient is an 81-year-old female presenting for evaluation of left foot pain x3 days. She has chronic conditions of hyperlipidemia, peripheral neuropathy and diabetes. Multiple etiologies for patient's symptoms considered including, but not limited to: Gout, clot, infection, fracture Prior Charts reviewed: Labs reviewed and interpreted by myself: Imaging reviewed: Left foot x-ray showed no fractures Consultations: Discussed case with Dr. Daly, discussed differentials, since it seems to be improving and there are no obvious signs of infection nor clot, recommend she continue to monitor at home Findings and discharge diagnosis discussed with patient/family followed by verbalization of understanding. Discussed with patient that although gout as possible, her condition seems to be improving. She declines further testing of inflammatory markers or uric acid. We discussed that her fracture was negative but she may get this x-ray repeated after she follows up with her primary care provider if her symptoms continue or worsen. We discussed that it is an unlikely location for clot, and she has no left calf swelling or tenderness nor shortness of breath. Infection also seems unlikely as there is no entrance wound. Recommend continued monitoring and follow up in the emergency room if erythema, pain or swelling worsens. She may treat with ice, tylenol, and elevation Return precautions discussed with patient/family whom verbalize understanding of diagnosis and plan Discharge Plan Departure Patient Disposition: Home Clinical Impression: Contusion Activity Restrictions/Additional Instructions: We discussed that the most likely cause of your left foot pain is from a contusion from shoes that she had been wearing or a bump you sustained but could not feel. Other differentials we discussed included clot which seems unlikely because this is unusual place, gout or infection, but there is no place where there seems to be a entrance for the infection and you noted that it seems to be feeling better. I recommend that you follow up with your primary care provider to make sure it is continuing to heal well, get repeat x-rays if pain continues and returned to the emergency room if redness and swelling and pain worsened. I recommend that you keep it elevated at home and use Tylenol and ice. Prescriptions: No Action diphenhydramine-acetaminophen [Tylenol PM Extra Strength] 25-500 mg tablet 1 tab PO BEDTIME PRN VITAMIN D (Vitamin D3) 1,000 mg PO Q DAY Qty: 0 furosemide 80 MG tablet 80 mg PO QDAY Qty: 0 aspirin 81 MG tablet,delayed release (DR/EC) 81 mg PO QDAY Qty: 0 (DME) Disabled Parking Permit Qty: 1 0RF Dose Instruction: As directed Rx Instructions: I certify that my patient has a condition which qualifies them for a disabled parking privileges. (DME) Insulin [place] (Ulticare) 31g x 5/16 Qty: 400 3RF Rx Instructions: Use to inject subquetaneously 3-4 times a day metformin 1,000 mg tablet 1,000 mg PO BID Qty: 180 3RF Lantus Solostar U-100 Insulin 100 unit/mL (3 mL) insulin pen See Rx Instructions SUBCUT .COMPLEX Qty: 15 3RF Dose Instruction: 30 UNITS IN AM, 20 UNITS IN PM SUBCUT ; Rx Instructions: 15 UNITS IN AM, 15 UNITS IN PM SUBCUT ; 15 syringes (DME) One Touch Verio test strips Qty: 250 3RF Dose Instruction: As directed Rx Instructions: Use the one touch verio test strips to test blood sugars up to 3 times daily Humalog KwikPen Insulin 100 unit/mL insulin pen See Rx Instructions SUBCUT BID Qty: 15 3RF Rx Instructions: 10 units in the morning subcut every morning and night; SUBCUT twice a day; carbidopa-levodopa 25-100 mg tablet extended release 1 tab PO BEDTIME Qty: 30 4RF magnesium oxide 400 mg magnesium tablet 400 mg PO BID (DME) pen needle, diabetic [Comfort EZ Pen [place]] 31 gauge x 5/16 needle See Dose Instructions .ROUTE .MEDSUPPLY Dose Instruction: As directed Rx Instructions: use to inject subquetaneously 2-4 times a day. Glucose Tablets See Rx Instructions PO .PRN PRN Rx Instructions: 1-2 tablets PO PRN; carvedilol 3.125 mg tablet 3.125 mg PO BID potassium chloride 8 mEq tablet extended release 8 meq PO DAILY atorvastatin 80 mg tablet 40 mg PO BEDTIME triamcinolone acetonide 0.1 % cream 1 applic topical QID Qty: 453.6 3RF Referrals: Tere Bryan MD [Primary Care Provider] - Stand Alone Forms: Patient Portal/API <Paul Daly DO - Last Filed: 08/16/22 03:48> Cosign ED Attending Chrissy Attestation: I was immediately available in the department for consultation. Documentation has been reviewed. I agree with assessment and plan.
[2022-08-08 15:11] VITALS: PULSE 78
[2022-08-08 15:29] VITALS: BP 126/59; PULSE 62; RESP 18; O2SAT 99
== END 2022-08-08 15:30 | disposition home or self-care (01) ==
PROVIDERS: Emergency Provider Physician Assistant; Family Provider Family Medicine; PCP Internal Medicine
DX: S90.32XA Contusion of left foot, initial encounter (principal); Z79.899 Other long term (current) drug therapy; E11.40 Type 2 diabetes mellitus with diabetic neuropathy, unspecified
CPT/HCPCS: 73630; 99281; 99283

== ENCOUNTER → 2022-08-11 08:41 | Outpatient (CLI) | payer OTHER, SELFPAY ==
[2022-08-11 11:22] LABS: Alanine Aminotransferase 16 IU/L (<35); Albumin 3.6 g/dL (3.5-5.0); Albumin Globulin Ratio 1.2 (1.0-2.8); Alkaline Phosphatase 118 U/L (38-126); Aspartate Aminotransferase 21 IU/L (14-36); BUN Creatinine Ratio 17.2 (6-22); Bilirubin Total 0.6 mg/dL (0.2-1.3); Blood Urea Nitrogen 23 mg/dL (7-17); Calcium 9.3 mg/dL (8.4-10.2); Carbon Dioxide 31 mmol/L (22-32); Chloride 101 mmol/L (98-107); Estimated Glomerular Filt Rate 39 mL/min (>60); Glucose 97 mg/dL (80-110); HEMOLYSIS < 15 (0-50); Magnesium 2.2 mg/dL (1.6-2.3); Sodium 140 mmol/L (137-145); Total Protein 6.6 g/dL (6.3-8.2)
[2022-08-14 11:36] LABS: Cholesterol, Total 138 mg/dL (100-199); HDL-Cholesterol 44 mg/dL (>39); LDL Particle 976 nmol/L (<1000); LDL Size 20.2 nm (>20.5); LDL-Cholsterol 70 mg/dL (0-99); LP-IR Score 52 (<=45); Small LDL- Particle 596 nmol/L (<=527); Triglycerides 135 mg/dL (0-149)
== END ==
PROVIDERS: Family Provider Family Medicine; PCP Internal Medicine; Referring Provider Specialist; Visit Provider Specialist
DX: I10 Essential (primary) hypertension (principal); E78.00 Pure hypercholesterolemia, unspecified; R00.2 Palpitations
CPT/HCPCS: 36415; 80053; 80061; 83704; 83735

== ENCOUNTER → 2022-11-25 10:17 | Outpatient (CLI) | payer OTHER, SELFPAY ==
--- NOTE | 2022-11-25 10:20 | DI.RAD.S_ITS ---
PROCEDURE: XR WRIST RT MIN 3V INDICATIONS: right arm pain, lesion on right distal radius, fell 10 days TECHNIQUE: 4 views of the wrist were acquired. COMPARISON: [facility], , WRIST MINIMUM 3 VIEWS RIGHT, 06/23/2017, 10:17. FINDINGS: Bones: No acute fractures or dislocations. No suspicious bony lesions. Severe degenerative changes are seen at the 1st carpometacarpal joint. Bones are osteopenic. Scaphoid view: Intact scaphoid Soft tissues: No suspicious soft tissue calcifications. IMPRESSION: No acute osseous abnormality. If clinical suspicion and/or symptoms persist, additional imaging with repeat plain films, or advanced imaging (e.g. CT, MRI) may be helpful for further assessment. Approved by: Long Stiles M.D. on 11/25/2022 at 12:44
--- NOTE | 2022-11-25 10:20 | DI.RAD.S_ITS ---
PROCEDURE: XR HUMERUS RT 2V INDICATIONS: right arm pain, lesion on right distal radius, fell 10 days TECHNIQUE: 2 views of the humerus were acquired. COMPARISON: None. FINDINGS: Bones: No acute fractures or dislocations. No suspicious bony lesions. Degenerative changes are seen at the acromioclavicular joint. Soft tissues: No suspicious soft tissue calcifications. IMPRESSION: No acute osseous abnormality. If clinical suspicion and/or symptoms persist, additional imaging with repeat plain films, or advanced imaging (e.g. CT, MRI) may be helpful for further assessment. Approved by: Long Stiles M.D. on 11/25/2022 at 12:40
== END ==
PROVIDERS: Family Provider Family Medicine; PCP Internal Medicine; Referring Provider Internal Medicine; Visit Provider Internal Medicine
DX: M79.601 Pain in right arm (principal)
CPT/HCPCS: 73060; 73110

== ENCOUNTER → 2023-02-04 08:31 | Outpatient (CLI) | payer OTHER, SELFPAY ==
[2023-02-04 10:47] LABS: Alanine Aminotransferase 16 IU/L (<35); Albumin 3.9 g/dL (3.5-5.0); Albumin Globulin Ratio 1.2 (1.0-2.8); Alkaline Phosphatase 97 U/L (38-126); Aspartate Aminotransferase 24 IU/L (14-36); Bilirubin Total 0.4 mg/dL (0.2-1.3); Blood Urea Nitrogen 19 mg/dL (7-17); Calcium 9.9 mg/dL (8.4-10.2); Carbon Dioxide 31 mmol/L (22-32); Chloride 102 mmol/L (98-107); Cholesterol 127 mg/dL (140-199); Estimated Glomerular Filt Rate 45 mL/min (>60); Globulin 3.2 g/dL (1.7-4.1); Glucose 119 mg/dL (80-110); HDL Cholesterol 41 mg/dL (40-60); HEMOLYSIS < 15 (0-50); LDL Cholesterol Calculated 65 mg/dL (<100); Magnesium 2.1 mg/dL (1.6-2.3); Potassium 4.2 mmol/L (3.4-5.1); Sodium 139 mmol/L (137-145); Total Protein 7.1 g/dL (6.3-8.2); Triglycerides 105 mg/dL (35-150)
== END ==
PROVIDERS: Family Provider Family Medicine; PCP Internal Medicine; Referring Provider Specialist; Visit Provider Specialist
DX: I10 Essential (primary) hypertension (principal); R00.2 Palpitations; E78.00 Pure hypercholesterolemia, unspecified
CPT/HCPCS: 36415; 80053; 80061; 83735

== ENCOUNTER → 2023-05-27 14:25 | Outpatient (CLI) | payer MEDICARE, OTHER, SELFPAY ==
--- NOTE | 2023-05-27 14:26 | DI.MG.S_ITS ---
BILATERAL DIGITAL SCREENING MAMMOGRAM 3D/2D WITH CAD: 05/27/2023 CLINICAL: Routine screening. Comparison is made to exams dated: 04/24/2022 mammogram, 03/12/2021 mammogram, and 07/04/2014 mammogram - [facility]. There are scattered areas of fibroglandular density in both breasts (category b / 25%-50% glandular tissue). Current study was also evaluated with a Computer Aided Detection (CAD) system. There are benign vascular calcifications in both breasts. No significant masses, calcifications, or other findings are seen in either breast. There has been no significant interval change. IMPRESSION: BENIGN There is no mammographic evidence of malignancy. A 1 year screening mammogram is recommended. Based on the Tyrer Cuzick model (a risk assessment model) the patient's lifetime risk is 0.2% and her 10 year risk is 0.0%. According to the ACR, ACS, and NCCN guidelines, an annual breast MRI exam along with mammogram is recommended if the patient's lifetime risk is 20% or greater. This exam was interpreted at Station ID: [id number]. NOTE: For mammograms, a report in lay terms will be sent to the patient. Approximately 15% of breast malignancies will not be visualized mammographically. In the management of a palpable breast mass, a negative mammogram must not discourage biopsy of a clinically suspicious lesion. Electronically Signed By: Gabriel rush/wendy:05/27/2023 16:51:23 letter sent: Normal Exam ACR BI-RADS Category 2: Benign Finding(s) 3342F
== END ==
PROVIDERS: Family Provider Family Medicine; PCP Family Medicine; Referring Provider Family Medicine; Visit Provider Family Medicine
DX: Z12.31 Encounter for screening mammogram for malignant neoplasm of breast (principal); R92.323 Mammographic fibroglandular density, bilateral breasts
CPT/HCPCS: 77063; 77067

== ENCOUNTER → 2023-06-10 07:11 | Outpatient (CLI) | payer OTHER, SELFPAY ==
[2023-06-10 08:22] LABS: Add Manual Diff / Slide Review NO; Basophils Absolute Auto 0 /uL (0-100); Basophils Percent Auto 0.7 % (0-2); Eosinophils Absolute Auto 100 /uL (0-450); Eosinophils Percent Auto 2.7 % (2-4); Hematocrit 34.1 % (36-46); Hemoglobin 11.1 g/dL (12.0-16.0); Lymphocytes Absolute Auto 1600 /uL (1100-4500); Lymphocytes Percent Auto 30.4 % (25-40); Mean Corpuscular HGB Conc 32.6 % (30-36); Mean Corpuscular Hemoglobin 26.2 PG (26-34); Mean Corpuscular Volume 80.5 fL (80-100); Monocytes Absolute Auto 400 /uL (0-900); Monocytes Percent Auto 7.7 % (3-14); Neutrophils Absolute Auto 3100 /uL (1500-7000); Neutrophils Percent Auto 58.5 % (50-75); Platelet Count 185 X10^3/uL (150-400); Red Blood Cell Count 4.23 X10^6/uL (4.0-5.2); Red Cell Distribution Width 15.7 % (11.6-14.8); White Blood Cell Count 5.4 X10^3/uL (4.5-11.0)
[2023-06-10 08:48] LABS: Alanine Aminotransferase 20 IU/L (<35); Albumin 3.4 g/dL (3.5-5.0); Albumin Globulin Ratio 1.1 (1.0-2.8); Alkaline Phosphatase 105 U/L (38-126); Aspartate Aminotransferase 26 IU/L (14-36); BUN Creatinine Ratio 15.1 (6-22); Bilirubin Total 0.6 mg/dL (0.2-1.3); Blood Urea Nitrogen 19 mg/dL (7-17); Calcium 9.3 mg/dL (8.4-10.2); Carbon Dioxide 29 mmol/L (22-32); Chloride 106 mmol/L (98-107); Estimated Glomerular Filt Rate 42 mL/min (>60); Globulin 3.1 g/dL (1.7-4.1); Glucose 126 mg/dL (80-110); HEMOLYSIS < 15 (0-50); Potassium 4.5 mmol/L (3.4-5.1); Sodium 140 mmol/L (137-145); Total Protein 6.5 g/dL (6.3-8.2)
[2023-06-10 09:10] LABS: TSH w/ Reflex to FT4 1.84 uIU/mL (0.47-4.68)
== END ==
PROVIDERS: Family Provider Family Medicine; PCP Family Medicine; Referring Provider Family Medicine; Visit Provider Family Medicine
DX: E11.9 Type 2 diabetes mellitus without complications (principal); I10 Essential (primary) hypertension; E78.2 Mixed hyperlipidemia
CPT/HCPCS: 36415; 80053; 83036; 84443; 85025

== ENCOUNTER → 2023-07-31 08:07 | Outpatient (CLI) | payer OTHER, SELFPAY ==
[2023-07-31 10:28] LABS: Alanine Aminotransferase 18 IU/L (<35); Albumin 3.7 g/dL (3.5-5.0); Albumin Globulin Ratio 1.3 (1.0-2.8); Alkaline Phosphatase 112 U/L (38-126); Aspartate Aminotransferase 25 IU/L (14-36); BUN Creatinine Ratio 18.2 (6-22); Bilirubin Total 0.7 mg/dL (0.2-1.3); Blood Urea Nitrogen 24 mg/dL (7-17); Calcium 9.4 mg/dL (8.4-10.2); Carbon Dioxide 30 mmol/L (22-32); Chloride 107 mmol/L (98-107); Estimated Glomerular Filt Rate 40 mL/min (>60); Globulin 2.8 g/dL (1.7-4.1); Glucose 139 mg/dL (80-110); HEMOLYSIS < 15 (0-50); Magnesium 2.2 mg/dL (1.6-2.3); Potassium 4.3 mmol/L (3.4-5.1); Sodium 140 mmol/L (137-145); Total Protein 6.5 g/dL (6.3-8.2)
[2023-08-04 09:22] LABS: Cholesterol, Total 148 mg/dL (100-199); HDL-Cholesterol 46 mg/dL (>39); Historical Reading Comment: (.); LDL Particle 1222 nmol/L (<1000); LDL Size 20.3 nm (>20.5); LDL-Cholsterol 82 mg/dL (0-99); LP-IR Score 40 (<=45); Small LDL- Particle 807 nmol/L (<=527); Triglycerides 110 mg/dL (0-149)
== END ==
PROVIDERS: Family Provider Family Medicine; PCP Family Medicine; Referring Provider Specialist; Visit Provider Specialist
DX: I10 Essential (primary) hypertension (principal); E78.00 Pure hypercholesterolemia, unspecified; R00.2 Palpitations
CPT/HCPCS: 36415; 80053; 80061; 83704; 83735

== ENCOUNTER → 2023-08-25 09:58 | Outpatient (CLI) | payer OTHER, SELFPAY ==
--- NOTE | 2023-08-25 09:59 | DI.MG.S_ITS ---
UNILATERAL RIGHT DIGITAL DIAGNOSTIC MAMMOGRAM 3D/2D: 08/25/2023 CLINICAL: Intermittent pain in right breast. Comparison is made to exams dated: 05/27/2023 mammogram, 04/24/2022 mammogram, and 03/12/2021 mammogram - [facility]. There are scattered areas of fibroglandular density in the right breast (category b / 25%-50% glandular tissue). There are grouped coarse dystrophic punctate calcifications in the right breast at 6 o'clock middle depth. These are seen in additional views. These are not significantly changed. No other significant masses or calcifications are seen in the breast. IMPRESSION: PROBABLY BENIGN The grouped coarse dystrophic punctate calcifications in the right breast are probably benign. There is no abnormality seen in the right breast to correspond with the diffuse area of clinical concern and diffuse lateral breast pain, however, recommend clinical follow up for persistent or worsening symptoms, or development of any clinically suspicious findings. A follow-up bilateral mammogram in 6 months is recommended to demonstrate stability. Findings and recommendations were conveyed to the patient during today's evaluation. Based on the Tyrer Cuzick model (a risk assessment model) the patient's lifetime risk is 0.2% and her 10 year risk is 0.0%. According to the ACR, ACS, and NCCN guidelines, an annual breast MRI exam along with mammogram is recommended if the patient's lifetime risk is 20% or greater. This exam was interpreted at Station ID: [id number]. NOTE: For mammograms, a report in lay terms will be sent to the patient. Approximately 15% of breast malignancies will not be visualized mammographically. In the management of a palpable breast mass, a negative mammogram must not discourage biopsy of a clinically suspicious lesion. Electronically Signed By: Arnol Forman M.D. aty/:08/25/2023 12:50:08 letter sent: Followup Recommended ACR BI-RADS Category 3: Probably benign 3343F
== END ==
LOC: MAMMO 09:58
PROVIDERS: Family Provider Family Medicine; PCP Family Medicine; Referring Provider Family Medicine; Visit Provider Family Medicine
DX: R92.1 Mammographic calcification found on diagnostic imaging of breast (principal); N64.4 Mastodynia; R92.321 Mammographic fibroglandular density, right breast
CPT/HCPCS: 77065; G0279

== ENCOUNTER → 2023-09-14 10:08 | Outpatient (CLI) | payer OTHER, SELFPAY ==
--- NOTE | 2023-09-14 10:09 | DI.US.S_ITS ---
LIMITED ULTRASOUND OF RIGHT BREAST: 09/14/2023 CLINICAL: Focal right breast pain. Comparison is made to exams dated: 08/25/2023 mammogram, 05/27/2023 mammogram, 04/24/2022 mammogram, 03/12/2021 mammogram, 07/04/2014 mammogram, and 12/14/2012 mammogram - [facility]. Color flow, real-time, and Doppler ultrasound of the right breast 9 o'clock region were performed. [place] scale images of the real-time examination were reviewed. No significant abnormalities were seen sonographically in the right breast. No finding to correspond to now-focal 9:00 right breast pain. Vascular calcifications are present in this area, chronic. IMPRESSION: NEGATIVE There is no sonographic correlate to the patient's pain. A follow-up mammogram in 6 months is recommended to demonstrate stability of mammographic incidental finding of calcifications as recommended on previous report. Findings and recommendations were conveyed to the patient at time of exam. Future imaging is recommended as follows: 02/24/2024 mammogram, 05/27/2024 screening mammogram. This exam was interpreted at Station ID: [id number]. Electronically Signed By: Mayra rodriguez/:09/14/2023 11:20:07 letter sent: Followup Recommended Ultrasound BI-RADS: 1 Negative
== END ==
PROVIDERS: Family Provider Family Medicine; PCP Family Medicine; Referring Provider Family Medicine; Visit Provider Family Medicine
DX: R92.8 Other abnormal and inconclusive findings on diagnostic imaging of breast (principal); N64.4 Mastodynia
CPT/HCPCS: 76642

== ENCOUNTER 2023-10-05 10:02 | Emergency (ER) | payer OTHER, SELFPAY ==
--- NOTE | 2023-10-05 10:06 | DI.RAD.S_ITS ---
PROCEDURE: XR CHEST 1V INDICATIONS: Chest TECHNIQUE: One view of the chest was acquired. COMPARISON: [facility], CR, XR CHEST 1V, 09/21/2021, 11:06. [facility], CR, XR CHEST 1V, 05/09/2018, 13:20. FINDINGS: Surgical changes and devices: None. Lungs and pleura: Patchy left basilar opacity, including nodularity. Mediastinum: Mediastinal contours appear normal. Heart size is normal. Bones and chest wall: No suspicious bony lesions. Overlying soft tissues appear unremarkable. IMPRESSION: Patchy left basilar opacity, including nodularity. Differential includes infection, atelectasis or less likely malignancy. Recommend follow-up in 1-2 months with chest x-ray to ensure resolution. Dictated by: Johny Diallo M.D. on 10/05/2023 at 11:19 Approved by: Johny Diallo M.D. on 10/05/2023 at 11:20
[2023-10-05 10:15] VITALS: BP 151/82; PULSE 72; O2SAT 97
[2023-10-05 10:22] VITALS: BP 151/82; PULSE 67; RESP 16; TEMP 36.6; O2SAT 97; BMI 38.2
--- NOTE | 2023-10-05 10:23 | EKG_ITS ---
[address] [address] Test Date: 2023-10-05 Pat Name: Estefania Lopez Department: Room: Gender: Female [employer]able [employer] Work[employer]: LEOBARDO : 1940 Requested By: Order Number: [id number] Reading MD: Armando Hicks Measurements Intervals [place] Rate: 69 P: 66 WA: 142 QRS: 12 QRSD: 82 T: 37 QT: 380 QTc: 407 Interpretive Statements Sinus rhythm with premature atrial complexes Electronically Signed On 10-05-2023 16:37:28 PDT by Armando Hicks
--- NOTE | 2023-10-05 10:24 | ED_ITS ---
HPI - General Adult General Chief complaint: Chest Pain Stated complaint: POSS HEART ATTACK Time Seen by Provider: 10/05/23 10:05 Source: patient Mode of arrival: Ambulatory Limitations: no limitations History of Present Illness HPI narrative: Patient is an 82-year-old female. Is an insulin-dependent diabetic, history of hypertension, hyperlipidemia. No prior history of a heart attack who is here for evaluation of chest discomfort that occurred earlier today. She states that she woke up in her normal state of health. She was doing things around the house when she got a sharp discomfort that was on both sides of her chest. Lasted approximately 15 minutes and she was now completely asymptomatic. She got a little lightheaded with it. She was never had discomfort like this before. Did not remember whether or not it got worse with palpation or movement or breathing. Related Data Home Medications Medication Instructions Recorded Confirmed VITAMIN D (Vitamin D3) 1,000 mg PO Q DAY ##0 11/04/10 03/10/23 aspirin 81 mg tablet,delayed 81 mg PO QDAY ##0 06/23/17 03/10/23 release diphenhydramine 25 1 tab PO BEDTIME PRN 09/07/17 03/10/23 mg-acetaminophen 500 mg tablet (Tylenol PM Extra Strength) Glucose Tablets See Rx Instructions PO .PRN PRN 05/13/19 03/10/23 magnesium oxide 400 mg PO BID 05/13/19 03/10/23 pen needle, diabetic 31 gauge x 05/13/19 03/10/23/16 (Comfort EZ Pen [place]) atorvastatin 80 mg tablet 40 mg PO BEDTIME 04/30/20 03/10/23 carvedilol 3.125 mg tablet 3.125 mg PO BID 04/30/20 03/10/23 potassium chloride 8 mEq 8 meq PO DAILY 04/30/20 03/10/23 tablet,extended release insulin glargine-yfgn 100 unit/mL 12 unit SUBCUT BID 03/10/23 03/10/23 (3 mL) subcutaneous pen Previous Rx's Medication Instructions Recorded Disabled Parking Permit #1 ea 12/28/17 Insulin [place] (Ulticare) #400 ea 06/01/19 One Touch Verio test strips #250 ea 03/07/20 triamcinolone acetonide 0.1 % 1 applic topical QID #453.6 grams 04/30/20 topical cream furosemide 20 mg tablet 20 mg PO BID #180 tabs 03/10/23 metformin 500 mg tablet 500 mg PO BID #180 tabs 03/10/23 insulin lispro 100 unit/mL See Rx Instructions SUBCUT BID #15 05/15/23 subcutaneous pen (Humalog KwikPen mL (U-100) Insulin) Allergies Allergy/AdvReac Type Severity Reaction Status Date / Time No Known Drug Allergies Allergy Verified 10/05/23 10:24 Review of Systems Review of Systems ROS Unobtainable: All systems reviewed & are unremarkable except as noted in HPI and below Patient History Medical History Degenerative disc disease, cervical Osteoarthritis of shoulders, bilateral Neck pain Shoulder pain PVCs (premature ventricular contractions) Obstructive sleep apnea of adult Peripheral edema PAC (premature atrial contraction) Chronic renal failure, stage 3 (moderate) Anemia, unspecified (08/04/17) Coronary artery disease Anxiety Chronic back pain Depression Fibromyalgia Osteoporosis Restless leg syndrome Sleep apnea Melanoma Headache Shoulder pain Foot pain Carpal tunnel syndrome Vertigo Hearing loss Cataract Fibroids Urinary incontinence Hemorrhoids Skin cancer Lymphoma Diabetes mellitus Surgical History Cholecystitis Hx of hysterectomy Family History Father Diabetes mellitus Heart disease Fall Mother Diabetes mellitus Cancer Social History marital status: household members: significant other and children pets and animals: Yes education level: high school occupational status: other stephanie/uatsdin: Nondenominational seatbelt use: always helmet use: No water heater temp set < 120 deg: Yes working smoke detector in home: No fire extinguisher in home: No carbon monox detector in home: No firearms in home: No Smoking Status: Former smoker during the past year weight has: increased > 10 lbs well-balanced diet: about half the time daily servings fruits/ve-1 caffeine: No eating out: rarely or never Smoking Status: Former smoker alcohol intake frequency: holidays/special occasions only Substance Use Type: does not use Exam Initial Vital Signs Initial Vital Signs: Vital Signs Pulse Rate 72 10/05/23 10:15 Blood Pressure 151/82 H 10/05/23 10:15 Pulse Oximetry 97 10/05/23 10:15 Const General: cooperative, comfortable and No ill appearing HENMT Head: normal to inspection and normocephalic Resp Effort & Inspection: normal respiratory effort Auscultation: clear to auscultation bilaterally Cardio Rate: regular rate Rhythm: regular rhythm GI Inspection: normal to inspection and non-distended Skin General: no rashes or lesions noted Neuro General: patient alert and moves all extremities Extrem General: capillary refill normal Course Orders Ordered: ED Orders 10/05/23 10:06 XR chest 1V Stat EKG-12 Lead Stat 10/05/23 10:20 Complete Blood Count AUTO DIFF Stat Comprehensive Metabolic Panel Stat Lipase Stat Troponin & CK Cardiac Panel Stat 10/05/23 12:30 Troponin & CK Cardiac Panel Stat Vital Signs Vital signs: Vital Signs - 8 hr 10/05/23 10:15 10/05/23 10:15 10/05/23 10:22 Temperature 98 F Pulse Rate 72 67 Respiratory Rate 16 Blood Pressure 151/82 H 151/82 H Pulse Oximetry 97 97 Oxygen Delivery Method Room Air 10/05/23 10:30 10/05/23 10:30 Temperature Pulse Rate 67 Respiratory Rate 23 Blood Pressure 146/70 H Pulse Oximetry 96 Oxygen Delivery Method Room Air Medical Decision Making Lab Data Lab results reviewed: Yes I reviewed the patient's lab results. 10/05/23 10:20 10/05/23 10:20 Labs: Lab Results 10/05/23 Range/Units 10:20 WBC 7.9 (4.5-11.0) X10^3/uL RBC 4.44 (4.0-5.2) X10^6/uL Hgb 12.3 (12.0-16.0) g/dL Hct 37.0 (36-46) % MCV 83.5 (80-100) fL MCH 27.6 (26-34) PG MCHC 33.1 (30-36) % RDW 16.4 H (11.6-14.8) % Plt Count 172 (150-400) X10^3/uL Neut % (Auto) 62.8 (50-75) % Lymph % (Auto) 29.0 (25-40) % Bennett % (Auto) 6.4 (3-14) % Eos % (Auto) 1.1 L (2-4) % Baso % (Auto) 0.7 (0-2) % Neut # (Auto) 5000 (4296-8784) /uL Lymph # (Auto) 2300 (0473-7223) /uL Bennett # (Auto) 500 (0-900) /uL Eos # (Auto) 100 (0-450) /uL Baso # (Auto) 100 (0-100) /uL Sodium 141 (137-145) mmol/L Potassium 4.0 (3.4-5.1) mmol/L Chloride 108 H (98-107) mmol/L Carbon Dioxide 29 (22-32) mmol/L BUN 22 H (7-17) mg/dL Creatinine 1.14 H (0.52-1.04) mg/dL Estimated GFR 47 L (>60) mL/min BUN/Creatinine Ratio 19.3 (6-22) Glucose 140 H (80-110) mg/dL Calcium 9.3 (8.4-10.2) mg/dL Total Bilirubin 0.6 (0.2-1.3) mg/dL AST 26 (14-36) IU/L ALT 20 (<35) IU/L Alkaline Phosphatase 89 (38-126) U/L Total Creatine Kinase 82 (30-135) U/L Troponin I < 0.012 (0.01-0.034) ng/mL Total Protein 7.0 (6.3-8.2) g/dL Albumin 3.9 (3.5-5.0) g/dL Globulin 3.1 (1.7-4.1) g/dL Albumin/Globulin Ratio 1.3 (1.0-2.8) Lipase 108 (23-300) U/L Imaging Data Chest x-ray: Radiologist's Impression: PROCEDURE: XR CHEST 1V INDICATIONS: Chest TECHNIQUE: One view of the chest was acquired. COMPARISON: [facility], CR, XR CHEST 1V, 09/21/2021, 11:06. [facility], CR, XR CHEST 1V, 05/09/2018, 13:20. FINDINGS: Surgical changes and devices: None. Lungs and pleura: Patchy left basilar opacity, including nodularity. Mediastinum: Mediastinal contours appear normal. Heart size is normal. Bones and chest wall: No suspicious bony lesions. Overlying soft tissues appear unremarkable. IMPRESSION: Patchy left basilar opacity, including nodularity. Differential includes infection, atelectasis or less likely malignancy. Recommend follow-up in 1-2 months with chest x-ray to ensure resolution. ECG Data Attestation: I personally reviewed and interpreted this ECG as follows: Interpretation: Sinus rhythm Ventricular rate is 69 Normal axis Normal QRS Normal QTC No ST T wave changes MDM Narrative Medical decision making narrative: Patient has been asymptomatic since arrival here in the emergency department. Has a nonischemic EKG. Negative troponin. We did discuss the chest x-ray findings and the importance of following up with her primary provider. Patient states she would like to go home. We discussed staying for a 2nd troponin however the patient would like to not stay. She understands the risks and benefits of this. Will discharge patient home with return precautions. She expressed understanding and agreement with plan. Discharge Plan Departure Patient Disposition: Home Clinical Impression: Pulmonary nodule, Atypical chest pain Instructions: DI for Atypical Chest Pain Activity Restrictions/Additional Instructions: Continue to take all of your medications as directed. Recommend that you contact your primary care provider for follow-up to discuss the incidental pulmonary nodule noted on the chest x-ray today. Return to the emergency department for new or worsening symptoms. Prescriptions: No Action diphenhydramine-acetaminophen [Tylenol PM Extra Strength] 25-500 mg tablet 1 tab PO BEDTIME PRN VITAMIN D (Vitamin D3) 1,000 mg PO Q DAY Qty: 0 aspirin 81 MG tablet,delayed release (DR/EC) 81 mg PO QDAY Qty: 0 (DME) Disabled Parking Permit Qty: 1 0RF Dose Instruction: As directed Rx Instructions: I certify that my patient has a condition which qualifies them for a disabled parking privileges. (DME) Insulin [place] (Ulticare) 31g x 5/16 Qty: 400 3RF Rx Instructions: Use to inject subquetaneously 3-4 times a day (DME) One Touch Verio test strips Qty: 250 3RF Dose Instruction: As directed Rx Instructions: Use the one touch verio test strips to test blood sugars up to 3 times daily Humalog KwikPen Insulin 100 unit/mL insulin pen See Rx Instructions SUBCUT BID Qty: 15 0RF Rx Instructions: 10 units in the morning subcut every morning and 6 units at bedtime insulin glargine-yfgn 100 unit/mL (3 mL) insulin pen 12 unit SUBCUT BID Patient Comments: [NO ORIGINAL SIG] furosemide 20 mg tablet 20 mg PO BID Qty: 180 3RF metformin 500 mg tablet 500 mg PO BID Qty: 180 3RF Rx Instructions: Start taking 500 mg twice a day magnesium oxide 400 mg magnesium tablet 400 mg PO BID (DME) pen needle, diabetic [Comfort EZ Pen [place]] 31 gauge x 5/16 needle See Dose Instructions .ROUTE .MEDSUPPLY Dose Instruction: As directed Rx Instructions: use to inject subquetaneously 2-4 times a day. Glucose Tablets See Rx Instructions PO .PRN PRN Rx Instructions: 1-2 tablets PO PRN; carvedilol 3.125 mg tablet 3.125 mg PO BID potassium chloride 8 mEq tablet extended release 8 meq PO DAILY atorvastatin 80 mg tablet 40 mg PO BEDTIME triamcinolone acetonide 0.1 % cream 1 applic topical QID Qty: 453.6 3RF Referrals: Parviz Mayo MD [Primary Care Provider] - Stand Alone Forms: Patient Portal/API
[2023-10-05 10:30] VITALS: BP 146/70; PULSE 67; RESP 23; O2SAT 96
[2023-10-05 10:31] LABS: Add Manual Diff / Slide Review NO; Basophils Absolute Auto 100 /uL (0-100); Basophils Percent Auto 0.7 % (0-2); Eosinophils Absolute Auto 100 /uL (0-450); Eosinophils Percent Auto 1.1 % (2-4); Hemoglobin 12.3 g/dL (12.0-16.0); Lymphocytes Absolute Auto 2300 /uL (1100-4500); Mean Corpuscular HGB Conc 33.1 % (30-36); Mean Corpuscular Hemoglobin 27.6 PG (26-34); Mean Corpuscular Volume 83.5 fL (80-100); Monocytes Absolute Auto 500 /uL (0-900); Monocytes Percent Auto 6.4 % (3-14); Neutrophils Absolute Auto 5000 /uL (1500-7000); Neutrophils Percent Auto 62.8 % (50-75); Platelet Count 172 X10^3/uL (150-400); Red Blood Cell Count 4.44 X10^6/uL (4.0-5.2); Red Cell Distribution Width 16.4 % (11.6-14.8); White Blood Cell Count 7.9 X10^3/uL (4.5-11.0)
[2023-10-05 11:00] VITALS: BP 131/61; PULSE 62; RESP 14; O2SAT 95
[2023-10-05 11:02] LABS: Alanine Aminotransferase 20 IU/L (<35); Albumin 3.9 g/dL (3.5-5.0); Albumin Globulin Ratio 1.3 (1.0-2.8); Alkaline Phosphatase 89 U/L (38-126); Aspartate Aminotransferase 26 IU/L (14-36); BUN Creatinine Ratio 19.3 (6-22); Bilirubin Total 0.6 mg/dL (0.2-1.3); Blood Urea Nitrogen 22 mg/dL (7-17); Calcium 9.3 mg/dL (8.4-10.2); Carbon Dioxide 29 mmol/L (22-32); Chloride 108 mmol/L (98-107); Creatine Kinase 82 U/L (30-135); Estimated Glomerular Filt Rate 47 mL/min (>60); Globulin 3.1 g/dL (1.7-4.1); Glucose 140 mg/dL (80-110); HEMOLYSIS < 15 (0-50); Lipase 108 U/L (23-300); Sodium 141 mmol/L (137-145)
[2023-10-05 11:14] LABS: Troponin I < 0.012 ng/mL (0.01-0.034)
[2023-10-05 11:30] VITALS: BP 155/66; PULSE 66; RESP 22; O2SAT 96
[2023-10-05 12:00] VITALS: PULSE 60; RESP 20; O2SAT 97
== END 2023-10-05 12:18 | disposition home or self-care (01) ==
PROVIDERS: Emergency Provider Emergency Medicine; Family Provider Family Medicine; PCP Family Medicine
DX: R07.89 Other chest pain (principal); R91.1 Solitary pulmonary nodule
CPT/HCPCS: 36415; 71045; 80053; 82550; 83690; 84484; 85025; 93005; 99283; 99284

== ENCOUNTER → 2023-11-23 14:42 | Outpatient (CLI) | payer OTHER, SELFPAY | LOC: RESP 14:42 | PROVIDERS: Family Provider Family Medicine; PCP Family Medicine; Referring Provider Family Medicine; Visit Provider Family Medicine | DX: R06.02 Shortness of breath (principal); Z87.891 Personal history of nicotine dependence; R94.2 Abnormal results of pulmonary function studies | CPT/HCPCS: 94060; 94726; 94729 ==

== ENCOUNTER → 2023-11-26 14:25 | Outpatient (CLI) | payer OTHER, SELFPAY ==
--- NOTE | 2023-11-26 14:27 | DI.RAD.S_ITS ---
PROCEDURE: XR CHEST 2V INDICATIONS: CHEST DISCOMFORT TECHNIQUE: 2 views of the chest were acquired. COMPARISON: [facility], CR, XR CHEST 1V, 10/05/2023, 10:25. FINDINGS: Surgical changes and devices: Multiple clips in the right upper quadrant. Lungs and pleura: Minimal streaky opacity at the left lung base. No pleural effusions or pneumothorax. Mediastinum: Mediastinal contours are normal. Heart size is normal. Bones and chest wall: No suspicious bony abnormalities. Soft tissues appear unremarkable. IMPRESSION: Minimal streaky opacity at the left lung base. Suspect atelectasis. Dictated by: Gabriel Jalloh M.D. on 11/30/2023 at 8:18 Approved by: Gabriel Jalloh M.D. on 11/30/2023 at 8:20
== END ==
LOC: RAD 14:26
PROVIDERS: Family Provider Family Medicine; PCP Family Medicine; Referring Provider Family Medicine; Visit Provider Family Medicine
DX: R07.89 Other chest pain (principal)
CPT/HCPCS: 71046

== ENCOUNTER → 2024-01-09 07:52 | Outpatient (CLI) | payer OTHER, SELFPAY ==
--- NOTE | 2024-01-09 | DI.ECHO.S_ITS ---
[facility] : : [address] : : [place] : : [id number] : : Phone: [phone] Echocardiogram Report + + :Name: SID MELCHOR Study Date: 01/09/2024 Height: 67 in : :[facility] ReadingLocation: Weight: 225 lb : : Gender: Female BSA: 2.1 m2 : :: 1940 Age: 83 yrs BP: 147/86 mmHg: :Reason For Study: SHORTNESS OF BREATH : :Ordering Physician: ANGEL, : :JASKARAN Abdul Performed By: Elisabeth Feliciano : :Referring: JASKARAN ORTIZ : + + Interpretation Summary Left ventricular systolic function remains normal with an estimated ejection fraction of 60 to 65% without any focal wall motion abnormality. There is borderline LVH with normal left ventricular size. Diastolic function is challenging to assess but there may be a diastolic relaxation abnormality with elevated filling pressures, but likely similar to the previous exam. The right ventricle is mildly enlarged with normal systolic function and may be slightly larger compared to the previous study although is not well-seen. Right ventricular systolic pressure is estimated at 47 mmHg with a CVP of 8 mmHg, and could not be estimated on the previous exam. There is moderate biatrial enlargement with the right atrium measuring mildly larger compared to the previous study. There is no significant functional valvular abnormality. There is moderate mitral valve calcification but no significant mitral stenosis or regurgitation. Procedure: A two-dimensional transthoracic echocardiogram with color flow and Doppler was performed. The study quality was technically adequate. Comparison is made with the echocardiogram of 08/29/2021. The patient was in sinus rhythm with heart rates between 58-71 bpm during the exam. Left Ventricle: The left ventricle is normal in size. The estimated left ventricular end diastolic volume is 74 ml. There is borderline concentric left ventricular hypertrophy. Left ventricular systolic function appears normal without focal wall motion abnormalities. The ejection fraction is estimated to be 60-65%. This is unchanged compared to the previous study. Diastolic parameters suggest a pseudonormalization pattern, consistent with probable elevated filling pressures. This is unchanged compared to the previous study. Right Ventricle: The right ventricle is mildly dilated. The right ventricular systolic function is normal. This is possibly slightly larger compared to the previous study. Atria: Both atria are moderately dilated. The right atrium has mildly increased in size since the prior echo exam. A patent foramen ovale is suspected. Mitral Valve: There is moderate mitral annular calcification. The mitral valve leaflets appear mildly thickened, but open well. The mitral valve leaflets are mildly calcified. There is a flat closure plane of the the mitral valve leaflets. No significant mitral valve stenosis. The mitral valve mean gradient is 3.2 mmHg. There is trace mitral regurgitation. This is unchanged compared to the previous study. Aortic Valve: The aortic valve is trileaflet. The aortic valve is slightly calcified. The aortic valve opens well. There is no aortic valve stenosis. No aortic regurgitation is present. Tricuspid Valve: The tricuspid valve is normal in structure and function. There is trace tricuspid regurgitation. This is unchanged compared to the previous study. The right ventricular systolic pressure is estimated to be at least 47 mmHg based on an estimated right atrial pressure of 8 mm Hg. Comparison with the previous study is not possible because this was unable to be assessed on the previous study. Pulmonic Valve: The pulmonic valve is not well seen, but is grossly normal. There is no pulmonic valvular regurgitation. Great Vessels: The aortic root is normal size. The dimensions of the ascending aorta are normal. The IVC is dilated (diameter is greater than 2.1 cm) yet it collapses greater than 50% with a sniff. This suggests a right atrial pressure of 8 mm Hg. Pericardium/ Pleura There is no pericardial effusion. There is no pleural effusion. MMode/2D Measurements & Calculations LVIDd: 4.4 cm LVOT diam: 2.0 cm LVIDs: 3.2 cm Ao root diam: 2.8 cm FS: 25.9 % asc Aorta Diam: 3.2 cm IVSd: 1.1 cm Ao Arch Diam (Prox Trans): 2.3 cm LVPWd: 1.1 cm LV [place]. diameter/BSA (cm/m^2): 2.1 LV sys. diameter/BSA (cm/m^2): 1.5 LA A2 area: 27.9 cm2 RA long axis: 5.4 cm LA A4 area: 23.7 cm2 RA area: 22.9 cm2 LA length (vol): 6.2 cm RA vol: 82.4 ml LA vol: 90.1 ml RA : 38.7 ml/m2 LA vol index: 42.4 ml/m2 IVC diam: 3.1 cm RVD1 (basal): 4.3 cm RVD2 (mid): 3.7 cm TAPSE: 1.9 cm Doppler Measurements & Calculations Ao V2 max: 136.9 cm/sec LVOT Max Jam: 83.4 cm/sec Ao V2 mean: 100.6 cm/sec LV V1 max P.8 mmHg Ao max P.5 mmHg LV V1 VTI: 20.3 cm Ao mean P.5 mmHg RAJESH(I,D): 1.8 cm2 Ao V2 VTI: 34.9 cm RAJESH(V,D): 1.9 cm2 sev ratio: 0.58 RAJESH indexed to BSA (cm^2/m^2): 0.84 MV E max jam: 129.8 cm/sec TR max jam: 311.9 cm/sec MV A max jam: 108.5 cm/sec TR max P.9 mmHg MV E/A: 1.2 PA V2 max: 78.0 cm/sec Med Peak E' Jam: 6.5 cm/sec PA V2 mean: 59.4 cm/sec E/E' med: 20.0 PA mean P.5 mmHg Lat Peak E' Jam: 5.6 cm/sec PA pr(Accel): 25.9 mmHg E/E' lat: 23.3 E/e' average: 21.7 MV dec time: 0.35 sec MVA(VTI): 1.2 cm2 MV V2 mean: 80.7 cm/sec SV(LVOT): 62.0 ml MV mean P.2 mmHg MV V2 VTI: 53.4 cm Reading Physician:08:10 AM
== END ==
PROVIDERS: Family Provider Family Medicine; PCP Family Medicine; Referring Provider Family Medicine; Visit Provider Family Medicine
DX: I50.32 Chronic diastolic (congestive) heart failure (principal); I34.81 Nonrheumatic mitral (valve) annulus calcification; R06.02 Shortness of breath; I25.2 Old myocardial infarction; Z98.61 Coronary angioplasty status; R60.0 Localized edema; I10 Essential (primary) hypertension; J98.11 Atelectasis; J98.4 Other disorders of lung
CPT/HCPCS: 93306

== ENCOUNTER → 2024-01-17 14:12 | Outpatient (CLI) | payer OTHER, SELFPAY ==
--- NOTE | 2024-01-17 14:13 | DI.MRI.S_ITS ---
PROCEDURE: MR SHOULDER RT WO CON INDICATIONS: ACUTE PAIN OF RIGHT SHOULDER TECHNIQUE: Noncontrast oblique coronal T2 fast spin echo with fat saturation, oblique sagittal T1 spin echo and T2 fast spin echo with fat saturation, axial T1 spin echo and T2 fast spin echo with fat saturation through the shoulder. COMPARISON: None. FINDINGS: Image quality: Excellent. Rotator cuff: Focal full-thickness perforation involving most anterior fibers of distal supraspinatus at its insertion on the humeral head is seen with up to 1.3 cm medial retraction of torn tendon fibers to the level of acromion. Moderate grade articular surface partial-thickness tear involving mid to posterior fibers of distal supraspinatus and infraspinatus at their insertions on humeral head is seen extending to musculotendinous junction. Tendinosis and low-grade intrasubstance partial-thickness tear involving distal subscapularis is seen. Sagittal images demonstrate [id number] supraspinatus muscle atrophy. Bones and bursae: No bone marrow contusions or fractures. Moderate acromioclavicular joint osteoarthritic changes are seen with joint space narrowing and downward osteophyte formation depressing on musculotendinous junction of supraspinatus. Type 1 acromion without an os acromiale. small to moderate amount of joint effusion and subacromial subdeltoid bursal fluid is present. No gross loose bodies. Capsule and soft tissues: Signal abnormality and fraying of superior anterior glenoid labrum is seen suggestive of superior anterior labral tear. The long head of the biceps tendon demonstrates normal location and morphology. The rotator interval appears normal, without fibrosis. The coracohumeral ligament is normal in thickness. IMPRESSION: 1. Moderate grade articular and bursal surface partial thickness tear involving distal supraspinatus and infraspinatus extending to musculotendinous junction with focal full-thickness perforation involving most anterior fibers of distal supraspinatus and up to 1.3 cm medial retraction of torn tendon fibers to the level of acromion. Tendinosis and low-grade intrasubstance partial-thickness tear involving distal subscapularis. Mild to moderate supraspinatus muscle atrophy. 2. Moderate acromioclavicular joint osteoarthritis. No fracture or dislocation. Small to moderate amount of joint fluid and subacromial subdeltoid bursal fluid, no loose bodies. 3. Finding is concerning for superior anterior glenoid labral tear. Dictated by: Alejandro Ruff M.D. on 01/18/2024 at 13:28 Approved by: Alejandro Ruff M.D. on 01/18/2024 at 13:33
== END ==
PROVIDERS: Family Provider Family Medicine; PCP Family Medicine; Referring Provider Family Medicine; Visit Provider Family Medicine
DX: M75.111 Incomplete rotator cuff tear or rupture of right shoulder, not specified as traumatic (principal); M19.011 Primary osteoarthritis, right shoulder; M25.511 Pain in right shoulder
CPT/HCPCS: 73221

== ENCOUNTER → 2024-02-05 08:14 | Outpatient (CLI) | payer OTHER, SELFPAY ==
[2024-02-05 10:03] LABS: Alanine Aminotransferase 15 IU/L (<35); Albumin 3.6 g/dL (3.5-5.0); Albumin Globulin Ratio 1.2 (1.0-2.8); Alkaline Phosphatase 107 U/L (38-126); Aspartate Aminotransferase 19 IU/L (14-36); BUN Creatinine Ratio 21.2 (6-22); Bilirubin Total 0.7 mg/dL (0.2-1.3); Blood Urea Nitrogen 24 mg/dL (7-17); Calcium 9.6 mg/dL (8.4-10.2); Carbon Dioxide 29 mmol/L (22-32); Chloride 103 mmol/L (98-107); Estimated Glomerular Filt Rate 48 mL/min (>60); Globulin 2.9 g/dL (1.7-4.1); Glucose 195 mg/dL (80-110); HEMOLYSIS < 15 (0-50); Potassium 4.4 mmol/L (3.4-5.1); Sodium 136 mmol/L (137-145); Total Protein 6.5 g/dL (6.3-8.2)
[2024-02-09 08:11] LABS: Cholesterol, Total 145 mg/dL (100-199); HDL-Cholesterol 51 mg/dL (>39); HDL-Particle (Total) 32.8 umol/L (>=30.5); LDL Particle 856 nmol/L (<1000); LDL Size 20.7 nm (>20.5); LDL-Cholsterol 74 mg/dL (0-99); LP-IR Score 45 (<=45); Small LDL- Particle 474 nmol/L (<=527); Triglycerides 109 mg/dL (0-149)
== END ==
PROVIDERS: Family Provider Family Medicine; PCP Family Medicine; Referring Provider Specialist; Visit Provider Specialist
DX: E11.69 Type 2 diabetes mellitus with other specified complication (principal); E78.5 Hyperlipidemia, unspecified; I10 Essential (primary) hypertension
CPT/HCPCS: 36415; 80053; 80061; 83704; 83735

== ENCOUNTER → 2024-03-23 15:23 | Outpatient (CLI) | payer OTHER, SELFPAY ==
--- NOTE | 2024-03-23 15:23 | DI.CT.S_ITS ---
PROCEDURE: CT CHEST WO CON INDICATIONS: Dyspnea, abnormal cxr, eval for lung mass TECHNIQUE: Noncontrast 5 mm thick sections acquired from the pulmonary apices to the posterior costophrenic angles. 1 mm lung window, 5 mm thick coronal and sagittal and 7 mm axial MIP reformats were then acquired. For radiation dose reduction, the following was used: automated exposure control, adjustment of mA and/or kV according to patient size. COMPARISON: [facility], CR, XR CHEST 2V, 11/26/2023, 14:30. FINDINGS: Image quality: Excellent Lungs: Mild discoid atelectasis in the left lung base. 1.0 cm ground-glass pulmonary nodule in the left upper lobe (3:81). No pleural effusion pneumothorax. No pulmonary edema or focal consolidation. Soft tissue/mediastinal: Moderate calcification of the thoracic aorta. No thoracic aortic aneurysm. Heart is normal in size. No pericardial effusion. Severe mitral annular calcification. Severe three-vessel coronary artery calcification. No mediastinal, hilar, or axillary lymphadenopathy. Visualized upper abdomen: Status post cholecystectomy. Extensive calcification of the splenic artery. Moderate calcification of the abdominal aorta. Elevation of the left hemidiaphragm. Bones: No suspicious lytic or blastic lesion. Severe degenerative disease of the thoracic spine and the upper lumbar spine. IMPRESSION: 1. 1.0 cm ground-glass pulmonary nodule in the left upper lobe. Recommend follow-up CT in 6-12 months. 2. Additional chronic findings described above. Dictated by: Kori Arce M.D. on 03/23/2024 at 17:40 Approved by: Kori Arce M.D. on 03/23/2024 at 17:52
== END ==
PROVIDERS: PCP Family Medicine; Referring Provider Internal Medicine Critical Care Medicine; Visit Provider Internal Medicine Critical Care Medicine
DX: J98.6 Disorders of diaphragm (principal); J98.11 Atelectasis; I70.0 Atherosclerosis of aorta; I70.8 Atherosclerosis of other arteries; R91.1 Solitary pulmonary nodule; I34.81 Nonrheumatic mitral (valve) annulus calcification; I25.10 Atherosclerotic heart disease of native coronary artery without angina pectoris; M51.34 Other intervertebral disc degeneration, thoracic region; M51.369 Other intervertebral disc degeneration, lumbar region without mention of lumbar back pain or lower extremity pain; Z90.49 Acquired absence of other specified parts of digestive tract
CPT/HCPCS: 71250

== ENCOUNTER → 2024-06-17 09:18 | Outpatient (CLI) | payer OTHER, SELFPAY ==
--- NOTE | 2024-06-17 09:20 | DI.MG.S_ITS ---
MM diagnostic mammo BI: 06/17/2024. BI-RADS: 3 CLINICAL: 83-year old female for bilateral diagnostic mammogram. No Tyrer-Cuzick risk score calculation due to patient's age being over 85 years old. No personal or first-degree family history of breast cancer. PRIOR EXAMS 09/14/2023, 08/25/2023, 05/27/2023, 04/24/2022, 03/12/2021. MAMMOGRAPHY TECHNIQUE: 2D and 3D (tomosynthesis) digital mammographic views obtained, with additional images as needed for full coverage. Current study was also evaluated with a Computer Aided Detection (CAD) system. DENSITY B. There are scattered areas of fibroglandular density. MAMMOGRAPHY FINDINGS Right: Lower at 6:00, Middle depth: There are probably-benign grouped coarse calcifications that are unchanged in number. Typically-benign vascular calcifications noted. Left: There are benign vascular calcifications. IMPRESSION: Right (Calcification): Lower at 6:00, Middle depth * Probably Benign. Left * No evidence of malignancy with benign findings. RECOMMENDATIONS Right: Lower at 6:00, Middle depth * Followup with diagnostic mammography in one year. Left * Annual screening mammography in one year. COMMENTS: Findings and recommendations were conveyed to the patient during today's evaluation. OVERALL ASSESSMENT CATEGORY BI-RADS-3: Probably Benign. ELECTRONICALLY SIGNED: Arnol Forman M.D. on 06/17/2024 at 06:56:27 PM PT Interpreting Station ID: [id number]
== END ==
PROVIDERS: PCP Family Medicine; Referring Provider Family Medicine; Visit Provider Family Medicine
DX: R92.1 Mammographic calcification found on diagnostic imaging of breast (principal); N64.4 Mastodynia
CPT/HCPCS: 77066; G0279

== ENCOUNTER → 2024-07-21 10:52 | Outpatient (CLI) | payer OTHER, SELFPAY ==
--- NOTE | 2024-07-21 10:54 | DI.RAD.S_ITS ---
PROCEDURE: XR ELBOW RT MIN 3V INDICATIONS: ELBOW PAIN TECHNIQUE: 3 views of the elbow were acquired. COMPARISON: None. FINDINGS AND IMPRESSION: Mild enthesopathy at the lateral humeral epicondyle. Mild elbow degenerative changes. No acute displaced fracture or dislocation. No significant joint effusion. If there is high concern for further derangement, consider MRI evaluation. Dictated by: Thai Eid M.D. on 07/22/2024 at 13:19 Approved by: Thai Eid M.D. on 07/22/2024 at 13:20
--- NOTE | 2024-07-21 10:54 | DI.RAD.S_ITS ---
PROCEDURE: XR SHOULDER RT MIN 2V INDICATIONS: SHOULDER PAIN TECHNIQUE: 3 views of the shoulder were acquired. COMPARISON: [facility], CR, XR SHOULDER LT MIN 2V, 06/04/2020, 9:49. FINDINGS: Bones: No fractures or dislocations. Moderate acromioclavicular joint osteoarthritic changes are seen. Mild glenohumeral joint osteoarthritic changes also noted. No suspicious bony lesions. Visualized ribs appear intact. Soft tissues: No suspicious soft tissue calcifications. IMPRESSION: Moderate right acromioclavicular joint osteoarthritis and mild right glenohumeral joint osteoarthritis. No acute fracture or dislocation. No gross soft tissue abnormalities. Dictated by: Alejandro Ruff M.D. on 07/21/2024 at 18:22 Approved by: Alejandro Ruff M.D. on 07/21/2024 at 18:23
== END ==
PROVIDERS: PCP Family Medicine; Referring Provider Family Medicine; Visit Provider Family Medicine
DX: M19.011 Primary osteoarthritis, right shoulder (principal); M25.521 Pain in right elbow; M25.511 Pain in right shoulder; M77.8 Other enthesopathies, not elsewhere classified
CPT/HCPCS: 73030; 73080

== ENCOUNTER → 2024-07-25 08:37 | Outpatient (CLI) | payer OTHER, SELFPAY ==
[2024-07-25 09:05] LABS: Hematocrit 39.4 % (36-46); Mean Corpuscular HGB Conc 32.9 % (30-36); Mean Corpuscular Hemoglobin 28.6 PG (26-34); Mean Corpuscular Volume 86.9 fL (80-100); Platelet Count 157 X10^3/uL (150-400); Red Blood Cell Count 4.54 X10^6/uL (4.0-5.2); Red Cell Distribution Width 13.8 % (11.6-14.8); White Blood Cell Count 5.7 X10^3/uL (4.5-11.0)
[2024-07-25 09:26] LABS: Alanine Aminotransferase 20 IU/L (<35); Albumin Globulin Ratio 1.4 (1.0-2.8); Alkaline Phosphatase 104 U/L (38-126); Aspartate Aminotransferase 30 IU/L (14-36); BUN Creatinine Ratio 19.5 (6-22); Bilirubin Total 0.9 mg/dL (0.2-1.3); Blood Urea Nitrogen 25 mg/dL (7-17); Calcium 9.5 mg/dL (8.4-10.2); Carbon Dioxide 30 mmol/L (22-32); Chloride 106 mmol/L (98-107); Estimated Glomerular Filt Rate 41 mL/min (>60); Globulin 2.9 g/dL (1.7-4.1); Glucose 70 mg/dL (80-110); HEMOLYSIS < 15 (0-50); Magnesium 1.8 mg/dL (1.6-2.3); Potassium 3.7 mmol/L (3.4-5.1); Sodium 141 mmol/L (137-145); Total Protein 6.9 g/dL (6.3-8.2)
[2024-07-25 09:34] LABS: NT-proBNP (BNP-Adult 18+) 503 pg/mL (<450)
[2024-07-25 09:55] LABS: Thyroid Stimulating Hormone 1.71 uIU/mL (0.47-4.68)
== END ==
LOC: LAB 08:38
PROVIDERS: PCP Family Medicine; Referring Provider Specialist; Visit Provider Specialist
DX: R06.09 Other forms of dyspnea (principal); E11.69 Type 2 diabetes mellitus with other specified complication; E78.5 Hyperlipidemia, unspecified; I10 Essential (primary) hypertension; I49.3 Ventricular premature depolarization; R53.1 Weakness
CPT/HCPCS: 36415; 80053; 83735; 83880; 84443; 85027

== ENCOUNTER 2024-07-27 10:26 | Emergency (ER) | payer OTHER, SELFPAY ==
[2024-07-27 10:30] VITALS: BP 150/67; PULSE 69; RESP 14; TEMP 36.1; O2SAT 98; BMI 34.7
--- NOTE | 2024-07-27 10:34 | DI.RAD.S_ITS ---
PROCEDURE: XR FOOT RT MIN 3V INDICATIONS: right great toe injury TECHNIQUE: 3 views of the foot were acquired. COMPARISON: [facility], , XR FOOT LT MIN 3V, 08/08/2022, 12:17. FINDINGS: Bones: Hallux valgus deformity is present. Ill-defined minimally displaced lucencies are present within the proximal and mid 3rd of the 1st proximal phalanx. No intra-articular extension. Soft tissues: No tibiotalar joint effusion. Achilles tendon appears normal. IMPRESSION: Minimally displaced fracture in the proximal/mid 3rd of the 1st proximal phalanx. Dictated by: Catia Degroot M.D. on 07/27/2024 at 11:09 Approved by: Catia Degroot M.D. on 07/27/2024 at 11:10
--- NOTE | 2024-07-27 11:43 | DI.CT.S_ITS ---
PROCEDURE: CT CERVICAL SPINE WO CON INDICATIONS: hit head, dizzy TECHNIQUE: Noncontrast 3 mm thick sections acquired from the skull base to the T4 level. Sagittal and coronal reformats were then constructed. For radiation dose reduction, the following was used: automated exposure control, adjustment of mA and/or kV according to patient size. COMPARISON: None. FINDINGS: Image quality: Excellent. Bones: No fractures or dislocations. Severe cervical spondylosis. Prominent C1-C2 pannus with associated erosive change in the dense suggesting inflammatory arthritis. Visualized superior ribs are intact. Soft tissues: Prevertebral soft tissues are normal in thickness. No paravertebral hematomas. No apical pneumothoraces. IMPRESSION: 1. No acute cervical fracture or dislocation. 2. Severe cervical spondylitic change. 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 Dictated by: Edgardo Castro M.D. on 07/27/2024 at 12:39 Approved by: Edgardo Castro M.D. on 07/27/2024 at 12:43
--- NOTE | 2024-07-27 11:43 | DI.CT.S_ITS ---
PROCEDURE: CT HEAD/BRAIN WO CON INDICATIONS: hit head, dizzy TECHNIQUE: Noncontrast 4.5 mm thick angled axial sections acquired from the foramen magnum to the vertex, with coronal and sagittal reformats. For radiation dose reduction, the following was used: automated exposure control, adjustment of mA and/or kV according to patient size. COMPARISON: None. FINDINGS: Image quality: Diagnostic. CSF spaces: Basal cisterns are patent. No extra-axial fluid collections. The ventricles are symmetric in size and shape. Brain: No intracranial bleeds or masses. There is cerebral volume loss for age, with resultant ventricular and sulcal prominence. There are periventricular and deep white matter chronic small vessel ischemic changes. There is intracranial internal carotid artery atherosclerosis. Skull and face: Calvarium and visualized facial bones appear intact, without suspicious lesions. Sinuses: Likely chronic subtotal opacification of the left maxillary sinus with inspissated calcified mucus. IMPRESSION: No acute intracranial pathology. Dictated by: Edgardo Castro M.D. on 07/27/2024 at 12:37 Approved by: Edgardo Castro M.D. on 07/27/2024 at 12:39
--- NOTE | 2024-07-27 11:43 | DI.RAD.S_ITS ---
PROCEDURE: XR CHEST 2V INDICATIONS: sob, dizzy TECHNIQUE: 2 views of the chest were acquired. COMPARISON: [facility], CR, XR CHEST 2V, 11/26/2023, 14:30. FINDINGS: Surgical changes and devices: Cholecystectomy clips Lungs and pleura: Lungs are clear. No pleural effusions or pneumothorax. Mediastinum: Mediastinal contours are normal. Heart size is normal. Bones and chest wall: No suspicious bony abnormalities. Soft tissues appear unremarkable. IMPRESSION: No acute cardiopulmonary abnormality is seen. Dictated by: Edgardo Castro M.D. on 07/27/2024 at 12:21 Approved by: Edgardo Castro M.D. on 07/27/2024 at 12:22
--- NOTE | 2024-07-27 11:51 | PC.NURSE ---
Patient left department with FRAN proctor.
[2024-07-27 12:30] LABS: Add Manual Diff / Slide Review NO; Basophils Absolute Auto 0 /uL (0-100); Basophils Percent Auto 0.5 % (0-2); Eosinophils Absolute Auto 200 /uL (0-450); Eosinophils Percent Auto 2.5 % (2-4); Hemoglobin 12.2 g/dL (12.0-16.0); Lymphocytes Absolute Auto 1800 /uL (1100-4500); Lymphocytes Percent Auto 25.3 % (25-40); Mean Corpuscular HGB Conc 33.8 % (30-36); Mean Corpuscular Hemoglobin 29.3 PG (26-34); Mean Corpuscular Volume 86.5 fL (80-100); Monocytes Absolute Auto 500 /uL (0-900); Monocytes Percent Auto 7.9 % (3-14); Neutrophils Absolute Auto 4500 /uL (1500-7000); Neutrophils Percent Auto 63.8 % (50-75); Platelet Count 161 X10^3/uL (150-400); Red Blood Cell Count 4.16 X10^6/uL (4.0-5.2)
--- NOTE | 2024-07-27 12:30 | EKG_ITS ---
[address] [id number] [place] [address] Test Date: 2024-07-27 Pat Name: Estefania Lopez Department: Room: Gender: Female Director Of [employer]: : 1940 Requested By: Order Number: [id number] Reading MD: Chau Calero MD Measurements Intervals [place] Rate: 66 P: 77 MN: 148 QRS: 30 QRSD: 80 T: 57 QT: 414 QTc: 434 Interpretive Statements Normal sinus rhythm with sinus arrhythmia Electronically Signed On 07-28-2024 7:29:15 PDT by Chau Calero MD
[2024-07-27 12:41] LABS: Alanine Aminotransferase 19 IU/L (<35); Albumin 3.8 g/dL (3.5-5.0); Albumin Globulin Ratio 1.2 (1.0-2.8); Alkaline Phosphatase 98 U/L (38-126); Aspartate Aminotransferase 26 IU/L (14-36); Bilirubin Total 0.7 mg/dL (0.2-1.3); Blood Urea Nitrogen 22 mg/dL (7-17); Calcium 9.5 mg/dL (8.4-10.2); Carbon Dioxide 29 mmol/L (22-32); Chloride 106 mmol/L (98-107); Creatine Kinase 46 U/L (30-135); Estimated Glomerular Filt Rate 43 mL/min (>60); Globulin 3.1 g/dL (1.7-4.1); Glucose 83 mg/dL (80-110); HEMOLYSIS < 15 (0-50); Potassium 4.4 mmol/L (3.4-5.1); Sodium 141 mmol/L (137-145); Total Protein 6.9 g/dL (6.3-8.2)
--- NOTE | 2024-07-27 12:47 | ED_ITS ---
<Statement entered by Armando Chavez, - 07/27/24 14:02> Dr. Chavez: I was immediately available in the department for consultation. I did not actually see the patient. HPI - Fall General Chief Complaint: Fall Stated Complaint: Fell hurt big toe. Time Seen by Provider: 07/27/24 11:10 Source: patient Mode of arrival: Wheelchair History of Present Illness HPI Narrative: 83-year-old female with history of IDDM, hypertension, diabetic neuropathy, CKD here today for an injury to her right big toe. States she fell yesterday or the day before, she can not recall specifically which day. States she was in her kitchen and she is unsure the mechanism of her fall. She does not know if she tripped or if she fell from another cause. She states she noticed her toe is bruised and swollen today. With her neuropathy she does not have much sensation in her feet otherwise. She uses a cane to ambulate in her home. She lives with her and her son. States she is fallen several other times in the past couple of weeks. States she has been experiencing some off and on dizziness and shortness of breath, but no headaches. No recent vision changes. Has been having difficulties with her memory. She believes she did hit her head when she fell but does not think that she lost consciousness. States her son heard her fall and came to check on her and she was conscious. Related Data Home Medications Medication Instructions Recorded Confirmed VITAMIN D (Vitamin D3) 1,000 mg PO Q DAY ##0 11/04/10 03/10/23 aspirin 81 mg tablet,delayed 81 mg PO QDAY ##0 06/23/17 03/10/23 release diphenhydramine 25 1 tab PO BEDTIME PRN 09/07/17 03/10/23 mg-acetaminophen 500 mg tablet (Tylenol PM Extra Strength) Glucose Tablets See Rx Instructions PO .PRN PRN 05/13/19 03/10/23 magnesium oxide 400 mg PO BID 05/13/19 03/10/23 pen needle, diabetic 31 gauge x 05/13/19 03/10/2316 (Comfort EZ Pen [place]) atorvastatin 80 mg tablet 40 mg PO BEDTIME 04/30/20 03/10/23 carvedilol 3.125 mg tablet 3.125 mg PO BID 04/30/20 03/10/23 potassium chloride 8 mEq 8 meq PO DAILY 04/30/20 03/10/23 tablet,extended release insulin glargine-yfgn 100 unit/mL 12 unit SUBCUT BID 03/10/23 03/10/23 (3 mL) subcutaneous pen Previous Rx's Medication Instructions Recorded Disabled Parking Permit #1 ea 12/28/17 Insulin [place] (Ulticare) #400 ea 06/01/19 One Touch Verio test strips #250 ea 03/07/20 triamcinolone acetonide 0.1 % 1 applic topical QID #453.6 grams 04/30/20 topical cream furosemide 20 mg tablet 20 mg PO BID #180 tabs 03/10/23 metformin 500 mg tablet 500 mg PO BID #180 tabs 03/10/23 insulin lispro 100 unit/mL See Rx Instructions SUBCUT BID #15 05/15/23 subcutaneous pen (Humalog KwikPen mL (U-100) Insulin) Allergies Allergy/AdvReac Type Severity Reaction Status Date / Time No Known Drug Allergies Allergy Verified 07/27/24 10:30 Review of Systems Review of Systems ROS Unobtainable: All systems reviewed & are unremarkable except as noted in HPI and below Patient History Medical History Degenerative disc disease, cervical Osteoarthritis of shoulders, bilateral Neck pain Shoulder pain PVCs (premature ventricular contractions) Obstructive sleep apnea of adult Peripheral edema PAC (premature atrial contraction) Chronic renal failure, stage 3 (moderate) Anemia, unspecified (08/04/17) Coronary artery disease Anxiety Chronic back pain Depression Fibromyalgia Osteoporosis Restless leg syndrome Sleep apnea Melanoma Headache Shoulder pain Foot pain Carpal tunnel syndrome Vertigo Hearing loss Cataract Fibroids Urinary incontinence Hemorrhoids Skin cancer Lymphoma Diabetes mellitus Surgical History Cholecystitis Hx of hysterectomy Family History Father Diabetes mellitus Heart disease Fall Mother Diabetes mellitus Cancer Social History marital status: household members: significant other and children pets and animals: Yes education level: high school occupational status: other stephanie/oriental orthodox: Orthodoxy seatbelt use: always helmet use: No water heater temp set < 120 deg: Yes working smoke detector in home: No fire extinguisher in home: No carbon monox detector in home: No firearms in home: No Smoking Status: Unknown if ever smoked during the past year weight has: increased > 10 lbs well-balanced diet: about half the time daily servings fruits/ve-1 caffeine: No eating out: rarely or never Smoking Status: Unknown if ever smoked alcohol intake frequency: holidays/special occasions only Exam Narrative Exam Narrative: GENERAL: [] year old patient appears stated age. Well-developed patient, in no acute distress. HEAD: Atraumatic. Normocephalic. EYES: Pupils equal round and reactive. Extraocular motions intact. No scleral icterus. No injection or drainage. ENT: Nose without bleeding, purulent drainage. Throat without erythema, tonsillar hypertrophy or exudate. Airway patent. NECK: Trachea midline. Non tender CARDIOVASCULAR: Regular rate and rhythm without murmurs, gallops, or rubs. RESPIRATORY: Clear to auscultation. Breath sounds equal bilaterally. No wheezes, rales, or rhonchi. GASTROINTESTINAL: Abdomen soft, non-tender, nondistended. EXTREMITIES: No edema or joint tenderness. BACK: Nontender without deformity or crepitus. No flank tenderness. NEURO: AOx3. SKIN: No rash or erythema of visible areas Initial Vital Signs Initial Vital Signs: Vital Signs Temperature 97.0 F L 07/27/24 10:30 Pulse Rate 69 07/27/24 10:30 Respiratory Rate 14 07/27/24 10:30 Blood Pressure 150/67 H 07/27/24 10:30 Pulse Oximetry 98 07/27/24 10:30 Oxygen Delivery Method Room Air 07/27/24 10:30 Course Orders Ordered: ED Orders 07/27/24 10:34 XR foot RT min 3V Stat 07/27/24 11:43 CT cervical spine wo con Stat CT head/brain wo con Stat CXR [XR chest 2V] Stat EKG-12 Lead Stat 07/27/24 11:52 Consult to [employer] - Gun Synchronizer Stat 07/27/24 12:15 Complete Blood Count AUTO DIFF Stat Comprehensive Metabolic Panel Stat Troponin & CK Cardiac Panel Stat Discontinued Medications Diphenhydramine HCl (Diphenhydramine 50 Mg/Ml Vial) 25 mg IV NOW ONE Stop: 07/27/24 12:08 Last Admin: 07/27/24 12:27 Dose: Not Given Documented By: RB Metoclopramide HCl (Metoclopramide 10 Mg/2 Ml Inj) 10 mg IV NOW ONE Stop: 07/27/24 12:08 Last Admin: 07/27/24 12:28 Dose: Not Given Documented By: RB Sumatriptan Succinate (Sumatriptan 25 Mg Tablet) 50 mg PO Q2H PRN PRN Reason: Headache Vital Signs Vital signs: Vital Signs - 8 hr 07/27/24 10:30 Temperature 97.0 F L Pulse Rate 69 Respiratory Rate 14 Blood Pressure 150/67 H Pulse Oximetry 98 Oxygen Delivery Method Room Air MDM - Fall Lab Data 07/27/24 12:15 07/27/24 12:15 Labs: Lab Results 07/27/24 Range/Units 12:15 WBC 7.0 (4.5-11.0) X10^3/uL RBC 4.16 (4.0-5.2) X10^6/uL Hgb 12.2 (12.0-16.0) g/dL Hct 36.0 (36-46) % MCV 86.5 (80-100) fL MCH 29.3 (26-34) PG MCHC 33.8 (30-36) % RDW 14.0 (11.6-14.8) % Plt Count 161 (150-400) X10^3/uL Neut % (Auto) 63.8 (50-75) % Lymph % (Auto) 25.3 (25-40) % [place] % (Auto) 7.9 (3-14) % Eos % (Auto) 2.5 (2-4) % Baso % (Auto) 0.5 (0-2) % Neut # (Auto) 4500 (1820-9260) /uL Lymph # (Auto) 1800 (4021-6400) /uL [place] # (Auto) 500 (0-900) /uL Eos # (Auto) 200 (0-450) /uL Baso # (Auto) 0 (0-100) /uL Sodium 141 (137-145) mmol/L Potassium 4.4 (3.4-5.1) mmol/L Chloride 106 (98-107) mmol/L Carbon Dioxide 29 (22-32) mmol/L BUN 22 H (7-17) mg/dL Creatinine 1.22 H (0.52-1.04) mg/dL Estimated GFR 43 L (>60) mL/min BUN/Creatinine Ratio 18.0 (6-22) Glucose 83 (80-110) mg/dL Calcium 9.5 (8.4-10.2) mg/dL Total Bilirubin 0.7 (0.2-1.3) mg/dL AST 26 (14-36) IU/L ALT 19 (<35) IU/L Alkaline Phosphatase 98 (38-126) U/L Total Creatine Kinase 46 (30-135) U/L Total Protein 6.9 (6.3-8.2) g/dL Albumin 3.8 (3.5-5.0) g/dL Globulin 3.1 (1.7-4.1) g/dL Albumin/Globulin Ratio 1.2 (1.0-2.8) Discharge Plan Departure Patient Disposition: Home Clinical Impression: Fall from ground level Fracture of great toe of right foot Qualifiers: Encounter type: initial encounter Fracture type: closed Phalanx: unspecified phalanx Fracture alignment: displaced Qualified Code(s): S92.401A - Displaced unspecified fracture of right great toe, initial encounter for closed fracture Activity Restrictions/Additional Instructions: Thank you for choosing us to care for you today. You are being diagnosed with a fracture (broken bone) of your right big toe. You will need to wear the orthopedic shoe that you were given today and follow up with the apartment leasing specialist to determine how long you will need to wear it for. Please also follow up with your primary care doctor regarding your diabetes and your neuropathy (loss of feeling in your feet). We also did some further testing to make sure that there was no problem with your heart or your brain that cause you to fall and those tests came back normal. Please return to the emergency department if you experience any new symptoms such as headaches, chest pain, or additional falls. You were also seen by the hospital social worker today and given resources for more support at home as well as being evaluated by an occupational therapist or physical therapist. We recommend these resources to help avoid any future falls at home. Prescriptions: No Action diphenhydramine-acetaminophen [Tylenol PM Extra Strength] 25-500 mg tablet 1 tab PO BEDTIME PRN VITAMIN D (Vitamin D3) 1,000 mg PO Q DAY Qty: 0 aspirin 81 MG tablet,delayed release (DR/EC) 81 mg PO QDAY Qty: 0 (DME) Disabled Parking Permit Qty: 1 0RF Dose Instruction: As directed Rx Instructions: I certify that my patient has a condition which qualifies them for a disabled parking privileges. (DME) Insulin [place] (Ulticare) 31g x 5/16 Qty: 400 3RF Rx Instructions: Use to inject subquetaneously 3-4 times a day (DME) One Touch Verio test strips Qty: 250 3RF Dose Instruction: As directed Rx Instructions: Use the one touch verio test strips to test blood sugars up to 3 times daily Humalog KwikPen Insulin 100 unit/mL insulin pen See Rx Instructions SUBCUT BID Qty: 15 0RF Rx Instructions: 10 units in the morning subcut every morning and 6 units at bedtime insulin glargine-yfgn 100 unit/mL (3 mL) insulin pen 12 unit SUBCUT BID Patient Comments: [NO ORIGINAL SIG] furosemide 20 mg tablet 20 mg PO BID Qty: 180 3RF metformin 500 mg tablet 500 mg PO BID Qty: 180 3RF Rx Instructions: Start taking 500 mg twice a day magnesium oxide 400 mg magnesium tablet 400 mg PO BID (DME) pen needle, diabetic [Comfort EZ Pen [place]] 31 gauge x 5/16 needle See Dose Instructions .ROUTE .MEDSUPPLY Dose Instruction: As directed Rx Instructions: use to inject subquetaneously 2-4 times a day. Glucose Tablets See Rx Instructions PO .PRN PRN Rx Instructions: 1-2 tablets PO PRN; carvedilol 3.125 mg tablet 3.125 mg PO BID potassium chloride 8 mEq tablet extended release 8 meq PO DAILY atorvastatin 80 mg tablet 40 mg PO BEDTIME triamcinolone acetonide 0.1 % cream 1 applic topical QID Qty: 453.6 3RF Referrals: Linda Ayers MD [Physician] - (R great toe minimally displaced fx ) Parviz Mayo MD [Primary Care Provider] - Stand Alone Forms: Patient Portal/API/Survey
[2024-07-27 12:53] LABS: Troponin I < 0.012 ng/mL (0.01-0.034)
[2024-07-27 13:51] VITALS: BP 148/72; PULSE 69; RESP 16; O2SAT 97
--- NOTE | 2024-07-27 14:32 | CM.SWNOTE ---
Addendum entered by Марина Rutledge 07/27/24 14:39: Patient is diagnosed with big toe fracture, concern for GLFs and Diabetic Neuropathy. MARITO Sellers Original Note: ED ROD PULLER Note ROD PULLER receives consult due to concern for patient's GLFs. Patient is 83 y/o female who presents to ED due to concern for pain in big toe. Patient had recent GLFs and does not recall when most recent GLF was. Patient's PCP is Dr. Mayo, patient has [employer] Medicare Advantage. ROD PULLER enters room to meet with patient, present in room is patient's significant other, both are hard of hearing. It is reported that patient's son resides with them in [place]. It is reported that patient is mostly indepedent with ADLs, patient's son typically prepares all the meals but he was recently injured from moving a freezer. It is reported that significant other drives patient as needed. Patient endorses she uses cane at baseline, patient has FWW and shower chair at home. ROD PULLER discusses caregivers and home health. Patient is open to home health referral for PT and OT. ROD PULLER provides patient with senior resource guide and lists of caregiver options. Patient denies preference for HH agency, ROD PULLER calls [facility] per rotation and it is reported that they do not take patient's insurance. Patient discharges prior to ROD PULLER's ability to notify patient of this. ROD PULLER calls [facility] and leaves VM. ROD PULLER calls [facility] and it is reported that they take patient's insurance. ROD PULLER emails F2F, order, and clinicals for review. [facility] states that they will be able to evaluate patient. ROD PULLER calls patient regarding change in HH agency and leaves VM. Plan: patient discharges to home upon medical clearance, [facility] to follow up with patient, patient to f/u with resources provided. MARITO Sellers
== END 2024-07-27 13:51 | disposition home or self-care (01) ==
PROVIDERS: Emergency Provider Physician Assistant; PCP Family Medicine
DX: S92.401A Displaced unspecified fracture of right great toe, initial encounter for closed fracture (principal); W18.30XA Fall on same level, unspecified, initial encounter; I10 Essential (primary) hypertension; S09.90XA Unspecified injury of head, initial encounter; R42 Dizziness and giddiness
CPT/HCPCS: 36415; 70450; 71046; 72125; 73630; 80053; 82550; 84484; 85025; 93005; 99284

== ENCOUNTER → 2024-11-07 08:03 | Outpatient (CLI) | payer MEDICARE, SELFPAY ==
[2024-11-07 08:35] LABS: Add Manual Diff / Slide Review NO; Hematocrit 37.7 % (36-46); Hemoglobin 12.7 g/dL (12.0-16.0); Lymphocytes Absolute Auto 1800 /uL (1100-4500); Mean Corpuscular HGB Conc 33.7 % (30-36); Mean Corpuscular Hemoglobin 29.4 PG (26-34); Mean Corpuscular Volume 87.4 fL (80-100); Platelet Count 162 X10^3/uL (150-400)
[2024-11-07 08:45] LABS: Hemoglobin A1C% w Est Avg Glu 6.8 % (4.0-6.0)
[2024-11-07 09:13] LABS: Alanine Aminotransferase 15 IU/L (<35); Albumin 3.6 g/dL (3.5-5.0); Albumin Globulin Ratio 1.3 (1.0-2.8); Alkaline Phosphatase 97 U/L (38-126); Blood Urea Nitrogen 21 mg/dL (7-17); Calcium 9.4 mg/dL (8.4-10.2); Carbon Dioxide 31 mmol/L (22-32); Chloride 103 mmol/L (98-107); Cholesterol 124 mg/dL (140-199); Estimated Glomerular Filt Rate 47 mL/min (>60); Globulin 2.8 g/dL (1.7-4.1); Glucose 127 mg/dL (70-99); HDL Cholesterol 41 mg/dL (40-60); HEMOLYSIS < 15 (0-50); Potassium 4.3 mmol/L (3.4-5.1); Sodium 139 mmol/L (137-145); Total Protein 6.4 g/dL (6.3-8.2); Triglycerides 96 mg/dL (35-150)
[2024-11-07 09:44] LABS: Microalbumi Creatinin Ratio Ur 15.0 ug/mg CR (<30)
[2024-11-09 08:40] LABS: Cholesterol, Total 136 mg/dL (100-199); HDL-Particle (Total) 29.4 umol/L (>=30.5); Historical Reading Comment: (.); LDL Particle 845 nmol/L (<1000); LDL-Cholsterol 72 mg/dL (0-99); Small LDL- Particle 418 nmol/L (<=527); Triglycerides 94 mg/dL (0-149)
== END ==
PROVIDERS: PCP Family Medicine; Referring Provider Specialist; Visit Provider Specialist
DX: E11.69 Type 2 diabetes mellitus with other specified complication (principal); E78.5 Hyperlipidemia, unspecified; E78.2 Mixed hyperlipidemia; I25.10 Atherosclerotic heart disease of native coronary artery without angina pectoris; I10 Essential (primary) hypertension
CPT/HCPCS: 36415; 80053; 80061; 82043; 82570; 83036; 83704; 85025

== ENCOUNTER → 2024-12-23 08:03 | Outpatient (CLI) | payer MEDICARE, SELFPAY ==
[2024-12-24 04:12] LABS: CRP, High Sensitivity 1.42 mg/L (0.00-3.00)
== END ==
PROVIDERS: PCP Family Medicine; Referring Provider Family Medicine; Visit Provider Family Medicine
DX: M25.511 Pain in right shoulder (principal); M25.512 Pain in left shoulder; M54.2 Cervicalgia
CPT/HCPCS: 36415; 85651; 86140; 86200; 86430

== ENCOUNTER 2025-03-21 18:13 | Emergency (ER) | payer MEDICARE, SELFPAY ==
[2025-03-21 18:22] VITALS: BP 160/70; PULSE 77; RESP 18; TEMP 36.1; O2SAT 99; BMI 32.2
--- NOTE | 2025-03-21 18:30 | DI.CT.S_ITS ---
PROCEDURE: CT CHEST ABD PEL WO CON INDICATIONS: GLF rt rib and hip pain TECHNIQUE: After the administration of oral contrast, 5 mm thick sections acquired from the lung apices to the symphysis pubis. 5 mm thick coronal and sagittal reformats acquired, with additional 7 mm coronal MIP reformats through the lungs. For radiation dose reduction, the following was used: automated exposure control, adjustment of mA and/or kV according to patient size. COMPARISON: None. FINDINGS: Image quality: Diagnostic. CHEST: Lower Neck: No enlarged lymph nodes. Thyroid: No thyroid nodules which require sonographic follow up, per consensus guidelines. Axillae: No enlarged lymph nodes. Chest Wall: Unremarkable. Bones: Unremarkable. Lungs and Pleura: No pneumothorax or pleural effusions. Dependent atelectasis in the posterior left lower lobe. Heart: Mild generalized cardiomegaly. Calcifications of the mitral valve annulus. Triple-vessel coronary artery calcifications. Calcifications of the thoracic aorta. Thoracic Vessels: The aorta and pulmonary arteries demonstrate normal size. Mediastinum and Marielle: No enlarged lymph nodes. Esophagus: No wall thickening. Small hiatal hernia. ABDOMEN: Liver: No solid mass. Gallbladder: Post cholecystectomy Biliary ducts: No biliary dilation. Pancreas: No ductal dilation. Spleen: Size is within normal limits. Adrenal Glands: No adrenal nodules. Kidneys and Ureters: No hydronephrosis. No solid mass. No complex renal cystic lesion which requires follow up. Stomach and Bowel: Normal colonic caliber, without significant wall thickening. Nonvisualized appendix Peritoneum: No abnormal intraperitoneal fluid. No free air. Ventral Wall: No hernia. Abdominal Nodes: No retroperitoneal or mesenteric adenopathy by size criteria. Vessels: Aorta and inferior vena cava are normal in size. PELVIS: Pelvic Organs: Unremarkable. Bladder: Unremarkable. Pelvic Nodes: No enlarged lymph nodes. Miscellaneous: No inguinal hernias are seen. Bones: No aggressive osseous abnormality. No displaced rib fracture. Mild osteitis pubis. Moderate degenerative arthrosis of the bilateral hip joints. Degenerative disc disease and facet arthrosis in the lumbar spine. 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 IMPRESSION: No acute traumatic abnormality within the chest, abdomen, or pelvis. Specifically, no displaced rib fracture or pneumothorax. Dictated by: Alvarado Alvarado M.D. on 03/21/2025 at 18:26 Approved by: Alvarado Alvarado M.D. on 03/21/2025 at 18:33
--- NOTE | 2025-03-21 18:32 | DI.CT.S_ITS ---
PROCEDURE: CT CERVICAL SPINE WO CON INDICATIONS: Trauma TECHNIQUE: Noncontrast 3 mm thick sections acquired from the skull base to the T4 level. Sagittal and coronal reformats were then constructed. For radiation dose reduction, the following was used: automated exposure control, adjustment of mA and/or kV according to patient size. COMPARISON: [facility], CT, CT CERVICAL SPINE WO CON, 07/27/2024, 11:56. FINDINGS: Image quality: Excellent. Bones: No fractures or dislocations. Visualized superior ribs are intact. Severe cervical spondylosis. Prominent C1-2 pannus. Associated erosive change about the dens. Soft tissues: Prevertebral soft tissues are normal in thickness. No paravertebral hematomas. No apical pneumothoraces. IMPRESSION: 1. No displaced fracture or traumatic subluxation. 2. Similar severe cervical spondylosis with findings of possible CPPD versus inflammatory arthropathy of the atlantodental joint. Dictated by: Alvarado Alvarado M.D. on 03/21/2025 at 18:12 Approved by: Alvarado Alvarado M.D. on 03/21/2025 at 18:26
--- NOTE | 2025-03-21 18:32 | DI.CT.S_ITS ---
PROCEDURE: CT HEAD/BRAIN WO CON INDICATIONS: Trauma TECHNIQUE: Noncontrast 4.5 mm thick angled axial sections acquired from the foramen magnum to the vertex, with coronal and sagittal reformats. For radiation dose reduction, the following was used: automated exposure control, adjustment of mA and/or kV according to patient size. COMPARISON: [facility], CT, CT HEAD/BRAIN WO CON, 07/27/2024, 11:56. [facility], CT, HEAD WITHOUT CONTRAST, 08/07/2017, 11:18. FINDINGS: Image quality: Diagnostic. CSF spaces: Basal cisterns are patent. No extra-axial fluid collections. The ventricles are symmetric in size and shape. Brain: No intracranial bleeds or mass effect. There is cerebral volume loss, with resultant ventricular and sulcal prominence. There are periventricular and deep white matter chronic small vessel ischemic changes. There is intracranial internal carotid artery atherosclerosis. Skull and face: Calvarium and visualized facial bones appear intact, without suspicious lesions. Sinuses: Chronic subtotal opacification of the left maxillary sinus with inspissated calcified mucous. IMPRESSION: No acute intracranial pathology. Dictated by: Alvarado Alvarado M.D. on 03/21/2025 at 18:11 Approved by: Alvarado Alvarado M.D. on 03/21/2025 at 18:12
--- NOTE | 2025-03-21 18:33 | ED.FALL ---
HPI - Fall General Chief Complaint: Trauma Stated Complaint: fall sat or sun, hit head,injury R arm, on thinner Time Seen by Provider: 03/21/25 18:30 Source: patient Mode of arrival: Family Vehicle History of Present Illness HPI Narrative: This is an 84-year-old white female who apparently 3 or 4 days ago had a mechanical ground level fall landing on her right side. Patient complaining of neck pain right rib pain right hip pain. Patient states she can not bear weight on her right hip. Patient denied any loss of consciousness patient has questionable low back pain. No obvious deformities. Related Data Home Medications ?Medication ?Instructions ?Recorded ?Confirmed VITAMIN D (Vitamin D3) 1,000 mg PO Q DAY ##0 11/04/10 02/14/25 aspirin 81 mg tablet,delayed 81 mg PO QDAY ##0 06/23/17 02/14/25 release diphenhydramine 25 1 tab PO BEDTIME PRN 09/07/17 02/14/25 mg-acetaminophen 500 mg tablet (Tylenol PM Extra Strength) Glucose Tablets See Rx Instructions PO .PRN PRN 05/13/19 02/14/25 pen needle, diabetic 31 gauge x 05/13/19 02/14/2508/26 (Comfort EZ Pen Rodeo) atorvastatin 80 mg tablet 40 mg PO BEDTIME 04/30/20 02/14/25 carvedilol 3.125 mg tablet 3.125 mg PO BID 04/30/20 02/14/25 potassium chloride 8 mEq 8 meq PO DAILY 04/30/20 02/14/25 tablet,extended release gabapentin 100 mg capsule 100 mg PO ONCE PM PRN 02/09/25 02/14/25 magnesium oxide 400 mg (241.3 mg 400 mg PO BID 02/09/25 02/14/25 magnesium) tablet pramipexole 1 mg tablet mg PO 02/09/25 02/14/25 Previous Rx's ?Medication ?Instructions ?Recorded Disabled Parking Permit #1 ea 12/28/17 Insulin Rodeo (Ulticare) #400 ea 06/01/19 One Touch Verio test strips #250 ea 03/07/20 furosemide 20 mg tablet 20 mg PO BID #180 tabs 03/10/23 metformin 500 mg tablet 500 mg PO BID #180 tabs 03/10/23 insulin lispro 100 unit/mL See Rx Instructions SUBCUT BID #15 10/10/24 subcutaneous pen (Humalog KwikPen mL (U-100) Insulin) fluticasone propionate 50 2 spray intranasal DAILY #16 grams 12/22/24 mcg/actuation nasal spray,suspension (Flonase Allergy Relief) insulin glargine-yfgn 100 unit/mL 10 unit (0.1 mL) SUBCUT BID #15 mL 01/23/25 (3 mL) subcutaneous pen Allergies Allergy/AdvReac Type Severity Reaction Status Date / Time No Known Drug Allergies Allergy Verified 03/21/25 18:23 Review of Systems Review of Systems ROS Unobtainable: All systems reviewed & are unremarkable except as noted in HPI and below Patient History Medical History (Updated 03/21/25 @ 21:01 by Joe Montes MD) Left shoulder pain Degenerative disc disease, cervical Osteoarthritis of shoulders, bilateral Neck pain Shoulder pain PVCs (premature ventricular contractions) Obstructive sleep apnea of adult Peripheral edema PAC (premature atrial contraction) Chronic renal failure, stage 3 (moderate) Anemia, unspecified (08/04/17) Coronary artery disease Anxiety Chronic back pain Depression Fibromyalgia Osteoporosis Restless leg syndrome Sleep apnea Melanoma Headache Shoulder pain Foot pain Carpal tunnel syndrome Vertigo Hearing loss Cataract Fibroids Urinary incontinence Hemorrhoids Skin cancer Lymphoma Diabetes mellitus Surgical History Cholecystitis Hx of hysterectomy Family History Father Diabetes mellitus Heart disease Fall Mother Diabetes mellitus Cancer Social History marital status: household members: significant other and children pets and animals: Yes education level: high school occupational status: other stephanie/methodist: Taoist seatbelt use: always helmet use: No water heater temp set < 120 deg: Yes working smoke detector in home: No fire extinguisher in home: No carbon monox detector in home: No firearms in home: No Smoking Status: Former smoker during the past year weight has: increased > 10 lbs well-balanced diet: about half the time daily servings fruits/ve-1 caffeine: No eating out: rarely or never Smoking Status: Former smoker tobacco type: cigarettes alcohol intake frequency: holidays/special occasions only Exam Narrative Exam Narrative: GENERAL: [] year old patient appears stated age. Well-developed patient, in mild distress. HEAD: Atraumatic. Normocephalic. EYES: Pupils equal round and reactive. Extraocular motions intact. No scleral icterus. No injection or drainage. ENT: Nose without bleeding, purulent drainage. Throat without erythema, tonsillar hypertrophy or exudate. Airway patent. NECK: Trachea midline. There is midline tenderness to palpation in the lower cervical spine no crepitance Chest: There is tenderness to palpation along the right lateral ribs CARDIOVASCULAR: Regular rate and rhythm without murmurs, gallops, or rubs. RESPIRATORY: Clear to auscultation. Breath sounds equal bilaterally. No wheezes, rales, or rhonchi. GASTROINTESTINAL: Abdomen soft, non-tender, nondistended. EXTREMITIES: Examination of the right hip reveals no deformity or shortening. There is tenderness to palpation over the lateral aspect of the right hip distal CMS is intact in all 4 extremities BACK: Nontender without deformity or crepitance. No flank tenderness. NEURO: AOx3. SKIN: No rash or erythema of visible areas Initial Vital Signs Initial Vital Signs: Vital Signs Temperature 97.0 F L 03/21/25 18:22 Pulse Rate 77 03/21/25 18:22 Respiratory Rate 18 03/21/25 18:22 Blood Pressure 160/70 H 03/21/25 18:22 Pulse Oximetry 99 03/21/25 18:22 Oxygen Delivery Method Room Air 03/21/25 18:22 Course Orders Ordered: ED Orders 03/21/25 18:30 CT chest abd pel wo con Stat 03/21/25 18:31 Urine Drug Screen, Rapid Stat EKG-12 Lead Stat 03/21/25 18:32 CT cervical spine wo con Stat CT head/brain wo con Stat 03/21/25 20:00 Complete Blood Count AUTO DIFF Stat Comprehensive Metabolic Panel Stat PTT Partial Thromboplastin Kit Stat Prothrombin Time INR Stat Troponin & CK Cardiac Panel Stat Vital Signs Vital signs: Vital Signs - 8 hr 03/21/25 18:22 Temperature 97.0 F L Pulse Rate 77 Respiratory Rate 18 Blood Pressure 160/70 H Pulse Oximetry 99 Oxygen Delivery Method Room Air MDM - Fall Lab Data 03/21/25 20:00 03/21/25 20:00 Labs: Lab Results 03/21/25 Range/Units 20:00 WBC 7.8 (4.5-11.0) X10^3/uL RBC 4.27 (4.0-5.2) X10^6/uL Hgb 12.7 (12.0-16.0) g/dL Hct 37.8 (36-46) % MCV 88.4 (80-100) fL MCH 29.8 (26-34) PG MCHC 33.7 (30-36) % RDW 14.4 (11.6-14.8) % Plt Count 190 (150-400) X10^3/uL Neut % (Auto) 63.5 (50-75) % Lymph % (Auto) 27.5 (25-40) % [place] % (Auto) 6.8 (3-14) % Eos % (Auto) 1.6 L (2-4) % Baso % (Auto) 0.6 (0-2) % Neut # (Auto) 4900 (7666-8022) /uL Lymph # (Auto) 2100 (4079-0367) /uL [place] # (Auto) 500 (0-900) /uL Eos # (Auto) 100 (0-450) /uL Baso # (Auto) 0 (0-100) /uL PT 10.6 (9.4-12.5) SECONDS INR 0.9 (0.9-1.3) APTT 29 (25.1-36.5) SECONDS Sodium 140 (137-145) mmol/L Potassium 4.2 (3.4-5.1) mmol/L Chloride 105 (98-107) mmol/L Carbon Dioxide 28 (22-32) mmol/L BUN 21 H (7-17) mg/dL Creatinine 1.05 H (0.52-1.04) mg/dL Estimated GFR 52 L (>60) mL/min BUN/Creatinine Ratio 20.0 (6-22) Glucose 192 H (70-99) mg/dL Calcium 9.5 (8.4-10.2) mg/dL Total Bilirubin 0.4 (0.2-1.3) mg/dL AST 28 (14-36) IU/L ALT 22 (<35) IU/L Alkaline Phosphatase 86 (38-126) U/L Total Creatine Kinase 54 (30-135) U/L Troponin I < 0.012 (0.01-0.034) ng/mL Total Protein 6.8 (6.3-8.2) g/dL Albumin 3.9 (3.5-5.0) g/dL Globulin 2.9 (1.7-4.1) g/dL Albumin/Globulin Ratio 1.3 (1.0-2.8) MDM Narrative Medical decision making narrative: Patient had CAT scan of the head read by the radiologist negative patient had CAT scan of the cervical spine read by the radiologist as nothing acute patient had CAT scan of chest abdomen and pelvis read by the radiologist as no acute intrathoracic intra-abdominal or intrapelvic pathology. Patient has CBC within normals chemistry remarkable glucose of 192 troponin was negative EKG was sinus with nonspecific STT wave changes at this point the patient can be safely discharged home there is no evidence of any major injury patient will be sent home on rice instructions and told to follow up with her doctor in next 2-3 days return to ER if worse differential diagnosis sprain strain fracture. Discharge Plan Departure Patient Disposition: Home Clinical Impression: Ground-level fall, Acute neck sprain, Contusion of hip, right, Contusion of arm, right Instructions: DI for Trauma Prescriptions: No Action Humalog KwikPen Insulin 100 unit/mL insulin pen See Rx Instructions SUBCUT BID Qty: 15 4RF Rx Instructions: 10 units in the morning subcut every morning and 6 units at bedtime fluticasone propionate [Flonase Allergy Relief] 50 mcg/actuation spray,suspension 2 spray intranasal DAILY Qty: 16 0RF Rx Instructions: administer into each nostril diphenhydramine-acetaminophen [Tylenol PM Extra Strength] 25-500 mg tablet 1 tab PO BEDTIME PRN VITAMIN D (Vitamin D3) 1,000 mg PO Q DAY Qty: 0 aspirin 81 MG tablet,delayed release (DR/EC) 81 mg PO QDAY Qty: 0 (DME) Disabled Parking Permit Qty: 1 0RF Dose Instruction: As directed Rx Instructions: I certify that my patient has a condition which qualifies them for a disabled parking privileges. (DME) Insulin Rodeo (Ulticare) 31g x 5/16 Qty: 400 3RF Rx Instructions: Use to inject subquetaneously 3-4 times a day (DME) One Touch Verio test strips Qty: 250 3RF Dose Instruction: As directed Rx Instructions: Use the one touch verio test strips to test blood sugars up to 3 times daily insulin glargine-yfgn 100 unit/mL (3 mL) insulin pen 10 unit SUBCUT BID Qty: 15 0RF furosemide 20 mg tablet 20 mg PO BID Qty: 180 3RF metformin 500 mg tablet 500 mg PO BID Qty: 180 3RF Rx Instructions: Start taking 500 mg twice a day (DME) pen needle, diabetic [Comfort EZ Pen Rodeo] 31 gauge x 5/16 needle See Dose Instructions .ROUTE .MEDSUPPLY Dose Instruction: As directed Rx Instructions: use to inject subquetaneously 2-4 times a day. Glucose Tablets See Rx Instructions PO .PRN PRN Rx Instructions: 1-2 tablets PO PRN; carvedilol 3.125 mg tablet 3.125 mg PO BID potassium chloride 8 mEq tablet extended release 8 meq PO DAILY atorvastatin 80 mg tablet 40 mg PO BEDTIME pramipexole 1 mg tablet PO magnesium oxide 400 mg (241.3 mg magnesium) tablet 400 mg PO BID gabapentin 100 mg capsule 100 mg PO ONCE PM PRN Referrals: Katie Parikh MD [Primary Care Provider, Family Practice] - 3-5 days Stand Alone Forms: Patient Portal/API
[2025-03-21 20:15] LABS: Add Manual Diff / Slide Review NO; Hematocrit 37.8 % (36-46); Hemoglobin 12.7 g/dL (12.0-16.0); Lymphocytes Absolute Auto 2100 /uL (1100-4500); Mean Corpuscular HGB Conc 33.7 % (30-36); Mean Corpuscular Hemoglobin 29.8 PG (26-34); Mean Corpuscular Volume 88.4 fL (80-100); Platelet Count 190 X10^3/uL (150-400)
[2025-03-21 20:25] LABS: INR 0.9 (0.9-1.3); Prothrombin Time 10.6 SECONDS (9.4-12.5)
[2025-03-21 20:28] LABS: Alanine Aminotransferase 22 IU/L (<35); Albumin 3.9 g/dL (3.5-5.0); Albumin Globulin Ratio 1.3 (1.0-2.8); Alkaline Phosphatase 86 U/L (38-126); Blood Urea Nitrogen 21 mg/dL (7-17); Calcium 9.5 mg/dL (8.4-10.2); Carbon Dioxide 28 mmol/L (22-32); Chloride 105 mmol/L (98-107); Creatine Kinase 54 U/L (30-135); Estimated Glomerular Filt Rate 52 mL/min (>60); Globulin 2.9 g/dL (1.7-4.1); Glucose 192 mg/dL (70-99); HEMOLYSIS < 15 (0-50); PTT Partial Thromboplastin Tim 29 SECONDS (25.1-36.5); Potassium 4.2 mmol/L (3.4-5.1); Sodium 140 mmol/L (137-145); Total Protein 6.8 g/dL (6.3-8.2)
[2025-03-21 20:40] LABS: Troponin I < 0.012 ng/mL (0.01-0.034)
[2025-03-21 21:03] VITALS: BP 148/69; PULSE 70; RESP 17; O2SAT 98
== END 2025-03-21 21:13 | disposition home or self-care (01) ==
PROVIDERS: Emergency Provider Emergency Medicine; PCP Family Medicine
DX: S13.9XXA Sprain of joints and ligaments of unspecified parts of neck, initial encounter (principal); S70.01XA Contusion of right hip, initial encounter; S40.021A Contusion of right upper arm, initial encounter; W18.30XA Fall on same level, unspecified, initial encounter; Z79.82 Long term (current) use of aspirin
CPT/HCPCS: 70450; 71250; 72125; 74176; 80053; 82550; 84484; 85025; 85610; 85730; 99283; 99284